=== PATIENT | male | born 1970 | race Caucasian/White ===

== ENCOUNTER 2016-11-24 23:27 | Inpatient (IN) ==
[2016-11-24] MEDS ORDERED: SODIUM CHLORIDE 0.9% 1,000 ML IV STA (23:51)
[2016-11-24] MEDS ORDERED: MORPHINE 2 MG/1 ML SYRINGE IV STA (23:52)
[2016-11-24 23:58] LABS: Basophils % 0.1 % (0.0-0.8); Hematocrit 31.7 VOL% (42.0-52.0); Hemoglobin 11.4 GM/DL (14.0-18.0); Immature Granulocytes % 1.5 %; Immature Granulocytes Absolute 0.37 #; Lymphocytes # 2.9 10*3/uL (1.4-4.0); Lymphocytes % 11.9 % (21.2-54.2); Mean Corpuscular Hemoglobin 30 PG (27-34); Mean Corpuscular Volume 81.9 FL (87-102); Mean Platelet Volume 11.1 FL (9.6-12.0); Monocytes # 1.8 10*3/uL (0.11-0.8); Monocytes % 7.4 % (1.7-12.7); NRBC # 0.08 10*3/uL; Neutrophils % 79.1 % (38.7-73.9); Platelet Count 329 T/CUMM (130-400); Red Blood Count 3.87 MC/CUMM (3.8-5.5); Red Cell Distribution Width 18.3 % (9.3-17.3)
[2016-11-25] MEDS ORDERED: MORPHINE 2 MG/1 ML SYRINGE ONE (00:03)
[2016-11-25 00:47] LABS: Albumin 2.4 G/DL (3.4-5.0); Bilirubin,Total 0.5 MG/DL (0.2-1.0); Calcium 8.7 MG/DL (8.5-10.1); Osmolality,Calculated 260.9 MOS/KG (273-304); Total Protein 6.7 G/DL (6.4-8.3)
[2016-11-25] MEDS ORDERED: VANCOMYCIN INJ 1,250 MG in SODIUM CHLORIDE 0.9% 250 ML IV STA (01:05)
[2016-11-25] MEDS ORDERED: DOXYCYCLINE HYCLATE INJ 100 MG in SODIUM CHLORIDE 0.9% 100 ML IV STA (01:05)
[2016-11-25] MEDS ORDERED: SODIUM CHLORIDE 0.9% 1,000 ML IV STA (01:06)
[2016-11-25] MEDS ORDERED: ACETAMINOPHEN 500 MG TABLET PO STA (01:13)
[2016-11-25] MEDS ORDERED: DOXYCYCLINE HYCLATE 100 MG VIAL ONE (01:44)
[2016-11-25] MEDS ORDERED: SODIUM CHLORIDE 0.9% 100 ML IV ONE (01:44)
[2016-11-25] MEDS ORDERED: ACETAMINOPHEN 500 MG TABLET ONE (01:45)
[2016-11-25 01:50] LABS: Lymphocytes 16 % (20-55); Platelet Estimate Normal; Segmented Neutrophils 81 % (50-85); Total Cells Counted 100
[2016-11-25 01:51] LABS: Acanthocytes 1+; Giant Platelets Few; Ovalocytes Few
[2016-11-25] MEDS ORDERED: HYDROmorphone 2 MG/1 ML VIAL IV STA (02:09)
[2016-11-25 02:16] LABS: Barbiturates Screen,Urine Negative (Negative); Benzodiazepines Screen,Urine Negative (Negative); Cannabinoid Screen,Urine Positive (Negative); Opiate Screen,Urine Positive (Negative); Phencyclidine Screen,Urine Negative (Negative)
[2016-11-25] MEDS ORDERED: ACETAMINOPHEN 325 MG TABLET PO PRN (02:22)
[2016-11-25] MEDS ORDERED: ONDANSETRON 4 MG/2 ML VIAL IV PRN (02:22)
[2016-11-25] MEDS ORDERED: HYDROmorphone 2 MG/1 ML VIAL ONE (02:32)
--- NOTE | 2016-11-25 02:34 | Emergency Department Note ---
Topher Madden Brittany, am scribing for, and in the presence of, Maricel Garvin MD 23:57. Bharathi Madden Leanne, MD, personally performed the services described in this documentation, ascribed by Kary Obando in my presence, and it is both accurate and complete . Arrival - Arrival Chief Complaint: Weakness Stated Complaint: HTN, fever, tick bite ED Nursing Triage Note: C/C Pt states he started feeling bad 4 days ago. Pt states he pulled a off his lower back. Pt C/O fever, hurting all over. Pt has RA - pt left hand/wrist red swollen painful. Pt has been out of his [place] for several days. No history of HTN. Mode of Arrival: Stretcher Limitations: No Limitations Source: Patient, RN Notes Reviewed - History of Present Illness HPI Narrative: Patient is a 46 y/o white male presenting to the ED by EMS with c/o polyarthralgia which began 4 days ago. Patient reports that he has a history of Rheumatoid Arthritis and with exacerbations he usually can lie down and have some relief, but with this exacerbation he has had the most severe pain he's ever experienced with an exacerbation. He has also had joint pain and swelling in the left wrist/hand, right hip, and right foot. Lying down does not relieve his pain and this pain is so severe that he requires assistance with toileting and care. He ran out of his [place] several days ago. He states that he believes he may have gotten bit by a tick about a week ago to the sacral area. Patient has no other complaint/pain. Allergies/Adverse Reactions: Allergies Allergy/AdvReac Type Severity Reaction Status Date / Time No Known Allergies Allergy Unverified 11/24/16 23:42 Review of System - Review of System 12 point system: reviewed and no additional remarkable complaints except as stated - Review of System Constitutional: Absent: chills, fever Eyes: Absent: vision change Head/Ears/Nose/Throat: Absent: nasal drainage, sore throat Respiratory: Absent: respiratory distress Cardiovascular: Absent: chest pain Gastrointestinal: Absent: abdominal pain, nausea, vomiting, diarrhea, constipation Genitourinary male: Absent: urgency, dysuria, frequency Musculoskeletal: Present: joint swelling, other (joint pains). Absent: back pain Skin: Absent: rash Neurological: Absent: headache Psychiatric: Absent: anxiety, depression Medical,Surgical,& Family Hx - Medical History Rheumatology: History of;: Rheumatoid Arthritis - Surgical History Abdominal Surgeries: Surgical HX of: Abdominal Surgery (spleenectomy) - Social History Smoking Status: Current every day smoker Frequency of Alcohol Use: None Type of Drug Use: Marijuana Exam Vital Signs: Vital Signs Temperature 100.6 F H 11/24/16 23:27 Pulse Rate 134 H 11/24/16 23:51 Respiratory Rate 24 11/24/16 23:51 Blood Pressure 158/109 11/24/16 23:27 O2 Sat by Pulse Oximetry 99 11/25/16 00:01 - General General appearance: alert, in no apparent distress - Head Head exam: Present: atraumatic, normocephalic, normal inspection - Eye Eye exam: Present: normal appearance, PERRL, EOMI - ENT ENT exam: Present: normal exam, normal oropharynx - Neck Neck exam: Present: normal inspection, full ROM, trachea midline - Chest Chest inspection: Present: normal inspection, symmetric chest wall rise - Respiratory Respiratory exam: Present: normal lung sounds bilaterally - Cardiovascular Cardiovascular exam: Present: normal rhythm, tachycardia, normal heart sounds. Absent: regular rate - Abdominal Exam Abdominal exam: Present: soft, normal bowel sounds. Absent: tenderness - Extremities Exam Extremities exam: Present: tenderness (exquisitely tender over joints in the left wrist, right hip, and right foot). Absent: normal inspection (reddened joints of the left wrist, right hip, and right foot), full ROM (limited due to pain) - Back Exam Back exam: Present: normal inspection - Neurological Exam Neurological exam: Present: alert, oriented X3, CN II-XII intact. Absent: motor sensory deficit - Psychiatric Psychiatric exam: Present: normal affect, normal mood - Skin Skin exam: Present: warm, dry Course Course Narrative: TACHY AND WITH FEVER. CONCERN FOR TICK BORN ILLNESS OR STAPH INFECTION. PT ALSO ASPLENIC. COVERED WITH VANC AND DOXY. WILL ADMIT TO HOSPITALIST FOR FURTHER WORK UP. Results - Labs CBC & BMP: 11/24/16 23:45 11/24/16 23:45 Lab Results: I have reviewed the patients labs Labs: Laboratory Tests 11/24/16 23:45 WBC 24.0 H RBC 3.87 Hgb 11.4 L Hct 31.7 L MCV 81.9 L RDW 18.3 H Plt Count 329 Neut % (Auto) 79.1 H Lymph % (Auto) 11.9 L Neut # (Auto) 19.0 H [place] # (Auto) 1.8 H Laboratory Tests 11/24/16 23:45 Sodium 129 L Potassium 4.0 Chloride 98 Carbon Dioxide 18 L Anion Gap 17.0 H BUN 19 H Creatinine 1.00 Glucose 117 H Calculated Osmolality 260.9 L C-Reactive Protein > 19.00 H Albumin 2.4 L Globulin 4.3 H Albumin/Globulin Ratio 0.5 L Laboratory Tests 11/24/16 23:45 C-Reactive Protein 44.40 H Laboratory Tests 11/24/16 23:45 Total Counted 100 Segmented Neutrophils 81 Lymphocytes 16 L Monocytes 3 Platelet Estimate Normal Giant Platelets Few Ovalocytes Few Acanthocytes (Spur) 1+ Disposition Clinical Impression: Polyarthralgia, Fever, Leukocytosis, Tick bite Case discussed with: patient Condition: Guarded Additional Instructions: ADMIT TO HOSPITALIST. PT GIVEN NS, DOXYCYCLINE AND VANC.
--- NOTE | 2016-11-25 02:42 | Hospitalist History & Physical ---
Assessment and Plan (1) Asplenia Status: Acute Current Visit: Yes (2) Severe sepsis Status: Acute Current Visit: Yes (3) Tobacco abuse Status: Acute Current Visit: Yes (4) History of rheumatoid arthritis Status: Acute Current Visit: Yes (5) Arthralgia of multiple joints Status: Acute Current Visit: Yes (6) Fever Status: Acute Current Visit: Yes (7) Leukocytosis Status: Acute Current Visit: Yes (8) Tick bite Status: Acute Current Visit: Yes (9) Hyponatremia Status: Acute Assessment and plan: Our plan for this patient will be admitting him to our service. I am going to put him on broad coverage antibiotics. I am covering for both tickborne illness and illness that are associated with encapsulated organisms since he is asplenic. I will have him on doxy Levaquin and Vanco. Also will consult infectious disease. Can repeat his lactic acid level at 7 a.m. we will workup his hyponatremia. I discussed the need for him to quit smoking. We spent approximately 3 minutes on this issue. Current Visit: Yes History of Present Illness Chief complaint: Joint pain History of present illness: Mr. Piedra is a 46 year old male with past medical history significant for rheumatoid arthritis who was in his normal state of health for the past 4 days. Patient reports last week pulling a tick off his back. He is outdoor a lot and he has frequent tick bites. This tic though had been on his back for some time because it was engorged with blood. Patient did not find any other ticks attached to them during this time. He comes in tonight after 4 days of experiencing multiple joint pains. Is also having right hip pain and right foot pain. He is said that he is on Enbrel now. Takes 2 shots a week. He reports that his rheumatoid arthritis has never felt like this. Patient is tachycardic with fever and elevated white count. I was consulted to admit him. Allergies Allergy/AdvReac Type Severity Reaction Status Date / Time No Known Allergies Allergy Unverified 11/24/16 23:42 Medical,Surgical,& Family Hx - Medical History Rheumatology: History of;: Rheumatoid Arthritis - Surgical History Abdominal Surgeries: Surgical HX of: Abdominal Surgery (spleenectomy) - Family History Family History: Reports;: Family Cancer - Social History Smoking Status: Current every day smoker Frequency of Alcohol Use: None Type of Drug Use: Marijuana 12 point system: reviewed and no additional remarkable complaints except as stated Exam - Constitutional Vitals: Period Temp Pulse Resp BP Sys/Maxwell Pulse Ox Last 24 Hr 100.6 F-100.6 F 134-134 20-24 158-158/109-109 99-99 - General General appearance: alert, in no apparent distress - Head Head exam: Present: atraumatic, normocephalic, normal inspection - Eye Eye exam: Present: normal appearance, PERRL, EOMI - ENT ENT exam: Present: normal exam, normal oropharynx - Neck Neck exam: Present: normal inspection, full ROM, trachea midline - Chest Chest inspection: Present: normal inspection, symmetric chest wall rise - Respiratory Respiratory exam: Present: normal lung sounds bilaterally - Cardiovascular Cardiovascular exam: Present: normal rhythm, tachycardia - Abdominal Exam Abdominal exam: Present: soft, normal bowel sounds. - Extremities Exam Extremities exam: Present: tenderness on his left wrist right hip and right foot the joints of his left wrist seem swollen and have limited range of motion secondary to his pain - Back Exam Back exam: Present: normal inspection - Neurological Exam Neurological exam: Present: alert, oriented X3, CN II-XII intact. Absent: motor sensory deficit - Psychiatric Psychiatric exam: Present: normal affect, normal mood - Skin Skin exam: Present: warm, dry Results - Labs CBC & BMP: 11/24/16 23:45 11/24/16 23:45
[2016-11-25 03:09] LABS: Sedimentation Rate-Westergren 100 MM/HR (0-15)
[2016-11-25] MEDS: MORPHINE 2 MG/1 ML SYRINGE IV PRN (04:38)
[2016-11-25] MEDS: SODIUM CHLORIDE 0.9% 1,000 ML IV SCH ×3 (04:41→20:46)
[2016-11-25] MEDS ORDERED: LEVOFLOXACIN INJ 500 MG in PREMIX 1 EACH IV SCH (05:00)
[2016-11-25 06:54] LABS: Basophils % 0.1 % (0.0-0.8); Hematocrit 27.5 VOL% (42.0-52.0); Hemoglobin 9.8 GM/DL (14.0-18.0); Immature Granulocytes % 1.7 %; Immature Granulocytes Absolute 0.36 #; Lymphocytes # 4.2 10*3/uL (1.4-4.0); Lymphocytes % 19.7 % (21.2-54.2); Mean Corpuscular HGB Conc 35.6 GM/DL (32-36); Mean Corpuscular Hemoglobin 30 PG (27-34); Mean Corpuscular Volume 82.8 FL (87-102); Mean Platelet Volume 10.8 FL (9.6-12.0); Monocytes # 1.8 10*3/uL (0.11-0.8); Monocytes % 8.4 % (1.7-12.7); NRBC # 0.07 10*3/uL; Neutrophils # 15.1 10*3/uL (1.4-7.4); Neutrophils % 70.1 % (38.7-73.9); Platelet Count 302 T/CUMM (130-400); Red Blood Count 3.32 MC/CUMM (3.8-5.5); Red Cell Distribution Width 18.2 % (9.3-17.3); White Blood Count 21.6 T/CUMM (4-12)
[2016-11-25 07:18] LABS: Acanthocytes Few; Band Neutrophils 2 % (0-10); Burr Cells Few; Eosinophils 1 % (0-10); Hypochromasia 1+; Lymphocytes 21 % (20-55); Microcytosis 1+; Segmented Neutrophils 73 % (50-85); Total Cells Counted 100
[2016-11-25 07:19] LABS: Platelet Estimate Normal
[2016-11-25 07:34] LABS: Bilirubin,Total 0.8 MG/DL (0.2-1.0); Calcium 7.8 MG/DL (8.5-10.1); Osmolality,Calculated 264.7 MOS/KG (273-304); Potassium 3.6 MMOL/L (3.5-5.1); Total Protein 5.8 G/DL (6.4-8.3)
[2016-11-25] MEDS: ENOXAPARIN 40 MG/0.4 ML SYRINGE SUBCUT SCH (09:36)
[2016-11-25] MEDS: PANTOPRAZOLE 40 MG TABLET PO SCH (09:36)
[2016-11-25] MEDS: VANCOMYCIN INJ 1,250 MG in SODIUM CHLORIDE 0.9% 250 ML IV SCH ×2 (09:36→17:59)
--- NOTE | 2016-11-25 09:42 | XRay Report ---
Exam: XR hip 2V RT Date: 11/25/2016 4:00 AM Comparison: None Indication: Right hip pain Technique:[AP and lateral right hip] Findings: No osseous or soft tissue pathology identified. Impression: No osseous or soft tissue pathology identified. PROCEDURE INTERPRETED AT [facility] DEPARTMENT OF RADIOLOGY Final Report Signed by: Dr. Christiane Cabello
[2016-11-25] MEDS: HYDROmorphone 2 MG/1 ML VIAL IV PRN ×4 (09:45→22:33)
[2016-11-25] MEDS ORDERED: methylPREDNISolone SOD SUC 125 MG/2 ML VIAL IV ONE (11:09)
[2016-11-25] MEDS: cefTRIAXone 2,000 MG in SODIUM CHLORIDE 0.9% 100 ML IV SCH (12:34)
--- NOTE | 2016-11-25 12:43 | Hospitalist Progress Note ---
Assessment and Plan (1) Immunocompromised state Status: Acute Assessment and plan: Patient has been on Enbrel as well as corticosteroids at home and he is asplenic to take all these into account as we treat him Current Visit: Yes (2) Arthralgia of multiple joints Status: Acute Assessment and plan: Analgesia with hydrocodone will continue but I believe this patient would benefit from a coronary large dose of steroid initially but maintained on prednisone 30 mg daily for stress phase coverage of steroids and the patient was using prednisone at home. Should take care of the acute pain. Current Visit: Yes (3) Fever Status: Acute Assessment and plan: Manage fever with antipyretics. Current Visit: Yes (4) Leukocytosis Status: Acute Assessment and plan: Continue to follow. There may be delayed response in drop in her leukocytosis because I believe lack of spleen is contributing to it. Current Visit: Yes (5) Tick bite Status: Acute Assessment and plan: Patient did not delivery take to the hospital from what I can gather. There is no of evaluating the cheek therefore. 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 Because of all epidemiologic K history obtained from the patient wanted also what about mosquito exposures which he acknowledges. His change in mental status is concerning the possible central nervous system involvement is an issue 2. Should cut down on the amount of opioids used. Unfortunately his drug screen is also quite rampant over excitatory medication this gentleman. There is obvious problem with substance use disorder. Current Visit: Yes (6) Asplenia Status: Acute Current Visit: Yes (7) History of rheumatoid arthritis Status: Acute Assessment and plan: Continue treatment and observe. Current Visit: Yes (8) Substance use disorder Status: Acute Assessment and plan: Patient toxicology screen is positive for opiates amphetamine methamphetamine and cannabinoids. He is counseled against use of these chemicals. Recidivism is expected however Current Visit: Yes Hospitalist: Subjective Interval history: Patient has been seen interviewed and examined and chart has been reviewed. This is a rather interesting case of a patient who likes to be outdoors and states that he had fatigue on his back that must have been there for a long time because it had been engorged with blood but it time he took it off a week ago. Presented to the hospital with 4 days symptoms of fevers headaches and increasing myalgias on top of his rheumatoid arthritis. He cannot run has a history of splenectomy but also takes Enbrel for his rheumatoid arthritis. Patient was leukocytotic with a very high fevers. Going to the family and patient does have a history of confusion preceding and during the acute phase illness at home. He is not aware of how much time he has been at home before coming to the hospital. He has had headaches which she has been ascribing to use of morphine yesterday but with confusion according to the there was complaint of headaches at home to. Patient lives here in [place] denies a rash. He also has had significant exposure to mosquitoes. Patient was admitted by my colleague last night. Rickettsial workup was started blood cultures were ordered he was started on vancomycin levofloxacin and doxycycline. His biggest complaint this morning is diffuse musculoskeletal pain worsening pain in his left wrist which she ascribes to his rheumatoid arthritis. Uses steroids at home and formal prednisone 10 mg p.o. every day. Exam - Constitutional Vitals: Period Temp Pulse Resp BP Sys/Maxwell Pulse Ox Last 24 Hr 98.3 F-100.6 F 104-134 20-24 136-158/74-109 95-99 General appearance: normal weight - Head Head exam: Present: normal inspection, normocephalic, atraumatic - Eye Eye exam: Present: EOMI, other (Anicteric sclera no conjunctival petechiae) Pupils: Present: CASA - ENT ENT exam: Present: normal oropharynx - Neck Neck exam: Present: other (Patient does have meningeal pain with manipulation of the neck) - Respiratory Respiratory exam: Present: clear to auscultation bilaterally - Cardiovascular Cardiovascular exam: Present: regular rate and rhythm - GI/Abdominal GI/Abdominal exam: Present: normal bowel sounds, soft - Extremities Exam Extremities exam: Present: other (Limitation of movement of the joints especially at the wrists elbows and knee also complaining of pain in the hip with limitation of movement of the) - Neurological Exam Neurological exam: Present: alert, oriented X3, CN II-XII intact - Psychiatric Psychiatric exam: Present: other (Looks very uncomfortable but appropriate cognitive output) - Skin Skin exam: Present: normal color, warm, dry, other (No rash) Results - Labs CBC & BMP: 11/25/16 06:41 11/25/16 06:41 Lab Results: I have reviewed the past 24 hour labs
[2016-11-25] MEDS: DOXYCYCLINE HYCLATE INJ 100 MG in SODIUM CHLORIDE 0.9% 100 ML IV SCH (13:49)
[2016-11-25 13:59] LABS: Albumin 1.9 G/DL (3.4-5.0); Bilirubin,Total 0.4 MG/DL (0.2-1.0); Calcium 7.9 MG/DL (8.5-10.1); Osmolality,Calculated 264.7 MOS/KG (273-304); Potassium 3.4 MMOL/L (3.5-5.1); Total Protein 5.6 G/DL (6.4-8.3)
[2016-11-25] MEDS: predniSONE 10 MG TABLET PO SCH (17:02)
[2016-11-26] MEDS: cefTRIAXone 2,000 MG in SODIUM CHLORIDE 0.9% 100 ML IV SCH ×2 (01:28→12:03)
[2016-11-26] MEDS: DOXYCYCLINE HYCLATE INJ 100 MG in SODIUM CHLORIDE 0.9% 100 ML IV SCH ×2 (02:08→15:09)
[2016-11-26] MEDS: VANCOMYCIN INJ 1,250 MG in SODIUM CHLORIDE 0.9% 250 ML IV SCH ×3 (03:02→18:00)
[2016-11-26] MEDS: HYDROmorphone 2 MG/1 ML VIAL IV PRN ×4 (03:08→22:37)
[2016-11-26 06:27] LABS: Hematocrit 27.5 VOL% (42.0-52.0); Hemoglobin 9.5 GM/DL (14.0-18.0); Immature Granulocytes % 1.3 %; Immature Granulocytes Absolute 0.12 #; Lymphocytes # 1.5 10*3/uL (1.4-4.0); Lymphocytes % 16.4 % (21.2-54.2); Mean Corpuscular HGB Conc 34.5 GM/DL (32-36); Mean Corpuscular Hemoglobin 29 PG (27-34); Mean Corpuscular Volume 83.1 FL (87-102); Mean Platelet Volume 10.9 FL (9.6-12.0); Monocytes # 0.4 10*3/uL (0.11-0.8); Monocytes % 4.4 % (1.7-12.7); NRBC # 0.02 10*3/uL; Neutrophils # 7.3 10*3/uL (1.4-7.4); Neutrophils % 77.9 % (38.7-73.9); Platelet Count 338 T/CUMM (130-400); Red Blood Count 3.31 MC/CUMM (3.8-5.5); Red Cell Distribution Width 18.3 % (9.3-17.3); White Blood Count 9.4 T/CUMM (4-12)
[2016-11-26] MEDS: SODIUM CHLORIDE 0.9% 1,000 ML IV SCH ×3 (06:51→20:25)
[2016-11-26 07:28] LABS: Burr Cells Slight; Giant Platelets Few; Hypochromasia 1+; Ovalocytes Slight
[2016-11-26 07:29] LABS: Microcytosis Slight; Platelet Estimate Adequate; Target Cells Slight
[2016-11-26] MEDS: PANTOPRAZOLE 40 MG TABLET PO SCH (08:55)
[2016-11-26] MEDS: ENOXAPARIN 40 MG/0.4 ML SYRINGE SUBCUT SCH (08:55)
[2016-11-26] MEDS: predniSONE 10 MG TABLET PO SCH (08:55)
[2016-11-26] MEDS: MORPHINE 2 MG/1 ML SYRINGE IV PRN (10:17)
--- NOTE | 2016-11-26 13:09 | Infectious Disease Consult ---
Assessment and Plan (1) MRSA (methicillin resistant Staphylococcus aureus) septicemia Status: Acute Assessment and plan: Patient is a polysubstance abuse and he denies IV drug use but not sure about this. We need to make sure he does not have endocarditis. Recommendations: 1. Echocardiogram to check for endocarditis; if TTE is negative may need to go for DEMOND 2. Check chest x-ray 3. CT abdomen and pelvis given the presence of right hip pain. Need to make sure he does not have source of the pelvic abscess. 4. Agree with vancomycin with goal trough level 15-20. Watch renal function closely and vancomycin 5. Repeat blood cultures tomorrow Thank you very much for the consult. Will follow. Discussed with Dr. Reis Current Visit: Yes (2) Asplenia Status: Acute Current Visit: Yes (3) Fever Status: Acute Assessment and plan: Due to MRSA septicemia. Monitor. Current Visit: Yes (4) History of rheumatoid arthritis Status: Acute Current Visit: Yes (5) Immunocompromised state Status: Acute Assessment and plan: Enbrel makes him relatively immunocompromised and at risk for serious infections. He does have oral candidiasis which supports the fact that his immune system is quite weak at present. Current Visit: Yes (6) Substance use disorder Status: Acute Current Visit: Yes (7) Tick bite Status: Acute Assessment and plan: Agree with empiric doxycycline for now although I am doubtful that he has a tickborne illness at this time. Current Visit: Yes (8) Oral candidiasis Status: Acute Assessment and plan: Possibly due to immunocompromised state from being on Enbrel and having rheumatoid arthritis etc. But and we did an HIV test, especially given his polysubstance abuse. Current Visit: Yes History of Present Illness Chief complaint: Fever, asplenia History of present illness: Mr. 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 He says prior to then but he got all his vaccines and was tested for TB etc. He is relatively well until about 2 days ago when he started having fever chills and sweats. He got quite malaised and weak and so came to the hospital. He was noted to be febrile and today blood cultures are coming up positive for gram -positive cocci and so I am asked to assist with management. Patient's detox was noted positive for several things including amphetamines and opioids but he denied ever injecting drugs. Apart from the fever other complaint is worsening of his joint pains associated with rheumatoid arthritis [wrists and knees] and for the first time he is having pain in the right hip. Of note patient reports pulling a tick off his body almost a week ago and he said the tick was engorged with blood. Home Medications Medication Instructions Recorded Confirmed Type Etanercept [Enbrel] 50 mg IM DIRECTED 11/25/16 11/25/16 History predniSONE TAB [PredniSONE] 10 mg PO DAILY 11/25/16 11/25/16 History Allergies Allergy/AdvReac Type Severity Reaction Status Date / Time No Known Allergies Allergy Verified 11/25/16 06:00 12 point system: reviewed and no additional remarkable complaints except as stated (Per HPI) Medical,Surgical,& Family Hx - Medical History Rheumatology: History of;: Rheumatoid Arthritis Musculoskeletal: No history of: Amputation - Surgical History HEENT Surgeries: Surgical HX of: Tonsilectomy & Adenoidectomy Abdominal Surgeries: Surgical HX of: Abdominal Surgery (spleenectomy) - Family History Family History: Reports;: Family Cancer - Social History Smoking Status: Current every day smoker Frequency of Alcohol Use: None Type of Drug Use: Marijuana Infectious Disease Exam H&P - Constitutional Vitals: Vital Signs Temp Pulse Resp BP Pulse Ox 97.8 F 92 H 18 111/68 98 11/26/16 11:02 11/26/16 11:02 11/26/16 11:02 11/26/16 11:02 11/26/16 11:02 Intake and Output 11/25/16 11/26/16 11/26/16 23:59 07:59 15:59 Intake Total 1700 / 1700 450 / 450 Output Total 900 / 900 550 / 550 Balance 800 / 800 -100 / -100 Intake: IV 1700 / 1700 450 / 450 Vibramycin Inj 100 mg In 100 / 100 100 / 100 Ns 100 ml @ 100 mls/hr IV Q12H [facility] Rx#:[id number] Ns 1,000 ml @ 75 mls/hr 1000 / 1000 IV .[id number] [facility] Rx#: [id number] Vancomycin Inj 1,000 mg 500 / 500 250 / 250 In Ns 250 ml @ 250 mls/hr IV Q8H [facility] Rx#: [id number] Rocephin 2,000 mg In Ns 100 / 100 100 / 100 100 ml @ 200 mls/hr IV Q12H [facility] Rx#:[id number] Output: Urine 900 / 900 550 / 550 Other: Voiding Method Urinal Urinal # Bowel Movements 0 0 Exam: General: Patient relatively comfortable, though he appeared fidgety at time HEENT: Mucous membranes pink and moist, anicteric acyanotic, CASA, significant whitish exudates on his hard palate become mucosa and tongue Neck: Supple, no thyroid gland enlargement Respiratory system: Breath sounds vesicular, no crepitations or wheezes Cardiovascular: Normal S1 and S2, grade 2/6 systolic murmur at the apex Abdomen: Normal bowel sounds, soft nontender throughout, no organomegaly or mass Genitourinary: No suprapubic pain or bladder distention Extremities: no edema Skin: There is a small patch of a possible rash to the right side of the upper back Reports - Labs CBC & BMP: 11/26/16 06:06 11/25/16 13:02 Labs: Laboratory Results - last 24 hr 11/25/16 11/26/16 11/26/16 13:02 06:06 06:06 WBC 9.4 D RBC 3.31 L Hgb 9.5 L Hct 27.5 L MCV 83.1 L MCH 29 MCHC 34.5 RDW 18.3 H Plt Count 338 MPV 10.9 Neut % (Auto) 77.9 H Lymph % (Auto) 16.4 L [place] % (Auto) 4.4 Eos % (Auto) 0.0 Baso % (Auto) 0.0 Neut # (Auto) 7.3 Lymph # (Auto) 1.5 [place] # (Auto) 0.4 Eos # (Auto) 0.0 Baso # (Auto) 0.0 Immature Gran % 1.3 Nucleated RBC % 0.2 Immature Gran # 0.12 Nucleated RBCs # 0.02 Platelet Estimate Adequate Giant Platelets Few Hypochromasia 1+ Microcytosis Slight Target Cells Slight Ovalocytes Slight [place] Cells Slight Sodium 131 L Potassium 3.4 L Chloride 101 Carbon Dioxide 18 L Anion Gap 15.4 H BUN 14 Creatinine 0.80 GFR Calculation 114 BUN/Creatinine Ratio 17.00 Glucose 134 H Calculated Osmolality 264.7 L Calcium 7.9 L Magnesium 2.4 Total Bilirubin 0.40 AST 15 ALT 15 L Alkaline Phosphatase 85 Total Protein 5.6 L Albumin 1.9 L Globulin 3.7 H Albumin/Globulin Ratio 0.5 L - Reports Microbiology: Microbiology 11/26/16 Unknown MRSA (PCR) - Final Blood Mrsa Positive Staph aureus Positive 11/26/16 Unknown MRSA (PCR) - Final Blood Mrsa Positive Staph aureus Positive 11/24/16 23:46 Blood Culture - Preliminary Blood Gram Positive Cocci 11/24/16 23:45 Blood Culture - Preliminary Blood Gram Positive Cocci - Diagnostic Findings Procedure: X-ray: report reviewed by me (Hip x-ray without acute pathology)
[2016-11-26] MEDS: FLUCONAZOLE 100 MG TABLET PO SCH (14:00)
--- NOTE | 2016-11-26 14:03 | XRay Report ---
XR chest 2V Indication: Fever leukocytosis bacteremia, look for pneumonia Comparison: None Technique: Frontal and lateral views of the chest. Findings: Mild cardiomegaly. Chronic change of the lungs without focal consolidation, pleural effusion, or pneumothorax. Moderate dextroconvex curvature of the thoracic spine. IMPRESSION: Mild cardiomegaly without pratima pulmonary edema or focal consolidating pneumonia. PROCEDURE INTERPRETED AT [facility] DEPARTMENT OF RADIOLOGY Final Report Signed by: Dr Misha Christensen
--- NOTE | 2016-11-26 14:37 | Hospitalist Progress Note ---
Assessment and Plan (1) Immunocompromised state Status: Acute Assessment and plan: Patient has been on Enbrel as well as corticosteroids at home and he is asplenic to take all these into account as we treat him Current Visit: Yes (2) Arthralgia of multiple joints Status: Acute Assessment and plan: Significant improvement especially after steroid dosing Current Visit: Yes (3) Fever Status: Acute Assessment and plan: Normalize fever curve Current Visit: Yes (4) Leukocytosis Status: Acute Assessment and plan: Continue to follow. There may be delayed response in drop in her leukocytosis because I believe lack of spleen is contributing to it. Current Visit: Yes (5) Tick bite Status: Acute Assessment and plan: Patient did not delivery take to the hospital from what I can gather. There is no of evaluating the cheek therefore. Suspected stenosis in this region of [facility] would be him on monocytic acute osseous or human granulocytic anaplasmosis. Because of all epidemiologic K history obtained from the patient wanted also what about mosquito exposures which he acknowledges. His change in mental status is concerning the possible central nervous system involvement is an issue 2. Should cut down on the amount of opioids used. Unfortunately his drug screen is also quite rampant over excitatory medication this gentleman. There is obvious problem with substance use disorder. Current Visit: Yes (6) Asplenia Status: Acute Current Visit: Yes (7) History of rheumatoid arthritis Status: Acute Assessment and plan: Continue treatment and observe. Current Visit: Yes (8) Substance use disorder Status: Acute Assessment and plan: Patient toxicology screen is positive for opiates amphetamine methamphetamine and cannabinoids. He is counseled against use of these chemicals. Recidivism is expected however Current Visit: Yes (9) MRSA bacteremia Status: Acute Assessment and plan: This is a new development this point. Will need to repeat blood cultures 2 patient will be put on vancomycin 1.25 g IV every 12 hours. Consult pharmacy for vancomycin pharmacokinetics. Case discussed with infectious disease specialist on the case. Current Visit: Yes Hospitalist: Subjective Interval history: Patient has been seen interviewed and examined and chart has been reviewed. This is a gentleman was admitted the night before yesterday through the emergency room claiming that he had pulled a tick off him a week before and they had started having fevers 4 days prior to coming to the hospital. He stated that this tick was engorged with the bladder and inferior was possibility of rickettsial infection and/or leakage. Was worried about possibility of West Nile exposure given the fact that he says he has been in the wounds and exposed to mosquitoes big-time. He did have a positive toxicology screen for excitatory medication suggesting substance use disorder and have discussed this with the patient as regard to the danger of low blood behavior especially since he is asplenic and uses Enbrel for rheumatoid arthritis. He did have amphetamine byproducts cannabinoid byproducts as well as opioids. He has been counseled for substance use disorder. This afternoon I was informed by the infectious disease product marketing consultant that the laboratory has reported that he does have MRSA. In the morning we know that he did have a growth of gram-positive cocci in the blood. Will need repeat blood cultures 2 to verify for possibility of an continuous bacteremia. Exam - Constitutional Vitals: Period Temp Pulse Resp BP Sys/Maxwell Pulse Ox Last 24 Hr 96.3 F-98.5 F 78-107 18-22 102-136/57-96 96-100 General appearance: normal weight - Head Head exam: Present: normocephalic, atraumatic - Eye Eye exam: Present: EOMI Pupils: Present: CASA - ENT ENT exam: Present: normal oropharynx - Respiratory Respiratory exam: Present: clear to auscultation bilaterally - Cardiovascular Cardiovascular exam: Present: regular rate and rhythm - Extremities Exam Extremities exam: Present: full ROM, other (Much better dexterity compared to the first day I evaluated him) - Neurological Exam Neurological exam: Present: alert, oriented X3, CN II-XII intact - Psychiatric Psychiatric exam: Present: normal affect, normal mood - Skin Skin exam: Present: normal color, warm, dry Results - Labs CBC & BMP: 11/26/16 06:06 11/25/16 13:02 Lab Results: I have reviewed the past 24 hour labs (Attention to microbiology report)
--- NOTE | 2016-11-26 16:17 | CT Report ---
CT abdomen pelvis wo/w con Indication: Right hip pain, MRSA bacteremia, psoas abscess Comparison: None Technique: Multiple axial tomographic images of the abdomen and pelvis were obtained after the administration of 100 cc Omnipaque 350 intravenous contrast. Findings: Scattered small opacities within the right lung base suspicious for infectious/inflammatory process. Recommend follow-up chest CT after treatment to ensure resolution and exclude metastatic disease. Mild left basilar atelectasis. No worrisome focal hepatic abnormality. The gallbladder is grossly unremarkable. The pancreas is grossly unremarkable. Prior splenectomy. The bilateral adrenal glands are grossly unremarkable. Scattered small cortical scarring within the bilateral kidneys. No evidence of hydronephrosis. Subcentimeter nonobstructing bilateral renal calculi. The urinary bladder is incompletely distended. The prostate and seminal vesicles are grossly unremarkable. There is no evidence of gastrointestinal obstruction or acute appendicitis. The appendix is not identified with certainty. There is scattered fluid throughout the small and large bowel suspicious for enteritis/diarrhea causing illness. There is no evidence of abscess formation. Moderate atherosclerotic calcifications demonstrated. Visualized osseous and surrounding soft tissue structures demonstrate no acute abnormality. Levoconvex curvature of the spine near the thoracolumbar junction. IMPRESSION: Scattered small opacities within the right lung base suspicious for infectious/inflammatory process. Recommend follow-up chest CT after treatment to ensure resolution and exclude metastatic disease. Prior splenectomy.The appendix is not identified with certainty. There is scattered fluid throughout the small and large bowel suspicious for enteritis/diarrhea causing illness. There is no evidence of abscess formation. Subcentimeter nonobstructing bilateral renal calculi and other detailed findings as above. The CT exam was performed using one or more of the following dose reduction techniques: Automated exposure control, adjustment of the mA and/or kV according to patient size, or use of iterative reconstruction technique. PROCEDURE INTERPRETED AT [facility] DEPARTMENT OF RADIOLOGY Final Report Signed by: Dr Misha Christensen
--- NOTE | 2016-11-26 16:20 | ECHO Report ---
Demetrius Piedrason Exam Date: 11/26/2016 14:26 Referring Physician: Technologist: traci Hoffman ARDMS, RVT Age: 46 Ht (in): 70 Wt (lb): 152 Gender: M Exam Location: [facility] Echo Indications: MRSA, Fever, Hx: Rheumatoid arthritis, Immunocompromised state, Substance abuse, Tick bite BP: 111 / 68 HR: 84 Rhythm: Sinus Technical Quality: IMPRESSIONS Left ventricular ejection fraction is estimated at 40-45%. Mild mitral valve regurgitation. Mild tricuspid valve regurgitation. Trace pulmonary valve regurgitation. Valve structures well visualized and show no evidence of vegetation. MEASUREMENTS (Male / Female) Normal Values 2D ECHO LV Diastolic Diameter PLAX 6.4 cm 4.2 - 5.9 / 3.9 - 5.3 cm LV Systolic Diameter PLAX 4.2 cm LV Fractional Shortening PLAX 33.8 % IVS Diastolic Thickness 0.9 cm 0.6 - 1.0 / 0.6 - 0.9 cm LVPW Diastolic Thickness 1.0 cm 0.6 - 1.0 / 0.6 - 0.9 cm RV Internal Dim ED PLAX 2.9 cm Aortic Root Diameter 3.6 cm LA Systolic Diameter LX 3.6 cm 3.0 - 4.0 / 2.7 - 3.8 cm DOPPLER TR Peak Velocity 303.0 cm/s TR Peak Gradient 36.7 mmHg FINDINGS Left Ventricle Normal left ventricular cavity size. Normal left ventricular wall thickness. Left ventricular ejection fraction is estimated at 40-45%. Right Ventricle The right ventricle is normal in size and function. Right Atrium The right atrium is normal in size. Left Atrium The left atrium is normal in size. Mitral Valve Thickened mitral valve. Mild mitral valve regurgitation. Aortic Valve Morphologically normal aortic valve without significant sclerosis or stenosis. There is no aortic regurgitation. Tricuspid Valve Morphologically normal tricuspid valve. Mild tricuspid valve regurgitation. Pulmonic Valve Morphologically normal pulmonic valve. Trace pulmonary valve regurgitation. Pericardium Normal pericardium without effusion. Aorta Normal ascending aorta dimension. Ramirez Segundo (Electronically Signed) Final Date: 26 November 2016 16:19
[2016-11-26] MEDS ORDERED: NICOTINE 14 MG/24 HR PATCH TRANSDERM PRN (19:23)
[2016-11-26 20:03] LABS: HIV Antigen/Antibody Result Nonreactive (Nonreactive)
[2016-11-27] MEDS: DOXYCYCLINE HYCLATE INJ 100 MG in SODIUM CHLORIDE 0.9% 100 ML IV SCH ×2 (01:26→16:45)
[2016-11-27] MEDS: VANCOMYCIN INJ 1,250 MG in SODIUM CHLORIDE 0.9% 250 ML IV SCH ×2 (05:54→18:09)
[2016-11-27] MEDS: HYDROmorphone 2 MG/1 ML VIAL IV PRN ×4 (05:57→20:31)
[2016-11-27] MEDS: ENOXAPARIN 40 MG/0.4 ML SYRINGE SUBCUT SCH (08:46)
[2016-11-27] MEDS: PANTOPRAZOLE 40 MG TABLET PO SCH (08:46)
[2016-11-27] MEDS: predniSONE 10 MG TABLET PO SCH (08:46)
[2016-11-27] MEDS: FLUCONAZOLE 100 MG TABLET PO SCH (08:46)
[2016-11-27] MEDS: SODIUM CHLORIDE 0.9% 1,000 ML IV SCH ×2 (08:50→20:31)
[2016-11-27 14:16] LABS: Basophils % 0.1 % (0.0-0.8); Hematocrit 27.7 VOL% (42.0-52.0); Hemoglobin 9.4 GM/DL (14.0-18.0); Immature Granulocytes % 0.9 %; Immature Granulocytes Absolute 0.13 #; Lymphocytes % 14.3 % (21.2-54.2); Mean Corpuscular HGB Conc 33.9 GM/DL (32-36); Mean Corpuscular Hemoglobin 29 PG (27-34); Mean Corpuscular Volume 84.2 FL (87-102); Monocytes # 0.3 10*3/uL (0.11-0.8); Monocytes % 2.1 % (1.7-12.7); NRBC # 0.03 10*3/uL; Neutrophils # 11.6 10*3/uL (1.4-7.4); Neutrophils % 82.6 % (38.7-73.9); Platelet Count 489 T/CUMM (130-400); Red Blood Count 3.29 MC/CUMM (3.8-5.5)
--- NOTE | 2016-11-27 14:26 | Hospitalist Progress Note ---
Assessment and Plan (1) MRSA bacteremia Status: Acute Assessment and plan: pt has MRSA bacteremia sec to IV drug use on iv vanc, pt need atleast 4 weeks of iv vancomycin b\c of immunosuppressed sate , will consult PICk line , ECHO is negative for vegetation, ID consulted will follow the recs Current Visit: Yes (2) History of rheumatoid arthritis Status: Acute Assessment and plan: start toradol prn for pain contiune his home meds Current Visit: Yes Hospitalist: Subjective Interval history: no fever today , blood c\s positive for MRSA bacteremia sec to iv drug use on iv vanc ECHO negative for vegetation Exam - Constitutional Vitals: Period Temp Pulse Resp BP Sys/Maxwell Pulse Ox Last 24 Hr 97.0 F-97.9 F 70-93 18-20 112-145/68-83 96-99 heent, pearle neck, supple. chest clear. cvs, s1 s2. 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
[2016-11-27 15:00] LABS: Band Neutrophils 1 % (0-10); Hypochromasia Slight; Lymphocytes 17 % (20-55); Platelet Estimate Increased; Segmented Neutrophils 81 % (50-85); Total Cells Counted 100
[2016-11-27] MEDS: KETOROLAC 30 MG/1 ML VIAL IV SCH ×2 (15:15→21:38)
--- NOTE | 2016-11-27 15:34 | Infectious Disease Progress ---
Assessment and Plan (1) MRSA (methicillin resistant Staphylococcus aureus) septicemia Status: Acute Assessment and plan: Patient is a polysubstance abuse and he denies IV drug use but on examination there was clear evidence of IV drug use to left leg. T DEMOND negative for endocarditis but given IV drug use history and immunocompromised state I think we need to pursue further evaluation with TE. Recommendations: 1. Consult cardiology for DEMOND 2. Repeat blood cultures 3. Continue with vancomycin with goal trough level 15-20. Watch renal function closely and vancomycin 4. Do NOT place PICC line until we have negative blood cultures. In fact, patient may not need PICC line, because if his DEMOND comes back negative he will probably only need 2 weeks of IV antibiotic therapy. Current Visit: Yes (2) Asplenia Status: Acute Current Visit: Yes (3) Fever Status: Acute Assessment and plan: Due to MRSA septicemia, improved. Monitor temp curve. Current Visit: Yes (4) History of rheumatoid arthritis Status: Acute Current Visit: Yes (5) Immunocompromised state Status: Acute Assessment and plan: Enbrel makes him relatively immunocompromised and at risk for serious infections. He did have oral candidiasis which supports the fact that his immune system is quite weak at present. HIV antibody test negative. Current Visit: Yes (6) Substance use disorder Status: Acute Current Visit: Yes (7) Tick bite Status: Acute Assessment and plan: Agree with empiric doxycycline for now although I am doubtful that he has a tickborne illness at this time. Current Visit: Yes (8) Oral candidiasis Status: Acute Assessment and plan: Possibly due to immunocompromised state from being on Enbrel and having rheumatoid arthritis etc. the candidiasis seems resolved. Continue fluconazole for about 2 more days.. Current Visit: Yes Infectious Disease - PN: Subj Interval history: Patient reported feeling better today overall he still has some pain in his joints and in his right hip. No fever. No cough shortness of breath. Infectious Disease Exam (PN) - Constitutional Vitals: Temp Pulse Resp BP Pulse Ox 97.4 F L 87 18 115/71 97 11/27/16 10:48 11/27/16 10:48 11/27/16 10:48 11/27/16 10:48 11/27/16 10:48 General appearance: normal weight Exam: General appearance: no acute distress - Eye Eye exam: Present: EOMI. no icterus Pupils: Present: CASA - ENT ENT exam: Resolved white exudates in mouth - Respiratory Respiratory exam: vesicular BS, no crepitations or wheezes - Cardiovascular Cardiovascular exam: regular rate and rhythm, no murmurs - GI/Abdominal GI/Abdominal exam: normal bowel sounds, soft, non-tender, no organomegaly or mass - Extremities Exam Extremities exam: no edema, obvious IV puncture wounds/bruising to left anterior leg - Skin Skin exam: no rash Results - Labs CBC & BMP: 11/27/16 13:51 11/25/16 13:02 Lab Results: I have reviewed the past 24 hour labs (HIV antibody negative, MRSA in 2 of 2 sets of blood cultures) - Diagnostic Findings Procedure: Chest x-ray: image reviewed by me, report reviewed by me ( Unremarkable), CT Abdomen and Pelvis: image reviewed by me, report reviewed by me (No pelvic or psoas abscess)
[2016-11-27] MEDS ORDERED: diphenhydrAMINE CAP 25 MG CAPSULE PO PRN (21:52)
[2016-11-28] MEDS: HYDROmorphone 2 MG/1 ML VIAL IV PRN ×5 (02:07→22:54)
[2016-11-28] MEDS: DOXYCYCLINE HYCLATE INJ 100 MG in SODIUM CHLORIDE 0.9% 100 ML IV SCH (03:35)
[2016-11-28] MEDS: VANCOMYCIN INJ 1,250 MG in SODIUM CHLORIDE 0.9% 250 ML IV SCH ×2 (05:37→18:26)
[2016-11-28] MEDS: KETOROLAC 30 MG/1 ML VIAL IV SCH ×3 (05:37→22:52)
[2016-11-28 07:21] LABS: Alanine Aminotransferase 22 U/L (16-61); Albumin 1.8 G/DL (3.4-5.0); Alkaline Phosphatase 62 U/L (45-117); Aspartate Amino Transferase 15 U/L (0-37); Bilirubin,Total < 0.39 MG/DL (0.2-1.0); Blood Urea Nitrogen 28 MG/DL (7-18); Calcium 8.1 MG/DL (8.5-10.1); Glucose 88 MG/DL (74-106); Osmolality,Calculated 283.4 MOS/KG (273-304); Potassium 3.7 MMOL/L (3.5-5.1); Sodium 140 MMOL/L (136-145); Total Protein 4.9 G/DL (6.4-8.3)
[2016-11-28] MEDS ORDERED: CHLORHEXIDINE 4% SOLN 118 ML BOTTLE TOP ONE (08:01)
[2016-11-28] MEDS: MUPIROCIN 2% OINT 22 GM TUBE TOP SCH ×3 (09:27→20:48)
[2016-11-28] MEDS: ENOXAPARIN 40 MG/0.4 ML SYRINGE SUBCUT SCH (09:27)
[2016-11-28] MEDS: FLUCONAZOLE 100 MG TABLET PO SCH (09:27)
[2016-11-28] MEDS: predniSONE 10 MG TABLET PO SCH (09:28)
[2016-11-28] MEDS: PANTOPRAZOLE 40 MG TABLET PO SCH (09:28)
--- NOTE | 2016-11-28 11:49 | Infectious Disease Progress ---
Assessment and Plan (1) MRSA (methicillin resistant Staphylococcus aureus) septicemia Status: Acute Assessment and plan: Patient is a polysubstance abuse including IVDU has prolonged MRSA septicemia. No abscess on CT abdomen and pelvis but given IV drug use I am concerned about possible endocarditis not picked up on TTE. Recommendations: 1. Discussed with patient that DEMOND would make the difference between treating for 4 weeks versus 6 weeks of IV antibiotics. He will think about whether or not he would accept the test 2. Continue with vancomycin. Trough borderline supratherapeutic but renal function has been normal. 3. Blood cultures were done again yesterday so we will follow-up those results 4. Do NOT place PICC line until we have negative blood cultures. Current Visit: Yes (2) Asplenia Status: Acute Current Visit: Yes (3) Fever Status: Acute Assessment and plan: Due to MRSA septicemia, resolved. Current Visit: Yes (4) History of rheumatoid arthritis Status: Acute Current Visit: Yes (5) Immunocompromised state Status: Acute Assessment and plan: Enbrel makes him relatively immunocompromised and at risk for serious infections. He did have oral candidiasis which supports the fact that his immune system is quite weak at present. HIV antibody test negative. Current Visit: Yes (6) Substance use disorder Status: Acute Current Visit: Yes (7) Tick bite Status: Acute Assessment and plan: I think he is unlikely to have a tickborne illness and I will stop the doxycycline. Current Visit: Yes (8) Oral candidiasis Status: Acute Assessment and plan: Resolved. I will stop the fluconazole. Current Visit: Yes Infectious Disease - PN: Subj Interval history: Patient doing relatively okay, in fact he says he feels good and is asking about when he is going home. His DEMOND was scheduled for this morning when he flat out refused, saying that he knows someone who had it and had complications from anesthesia. The patient has not had any fever. No nausea vomiting or diarrhea. Still with pains in his joints. Infectious Disease Exam (PN) - Constitutional Vitals: Temp Pulse Resp BP Pulse Ox 97.6 F 72 18 152/79 97 11/28/16 11:37 11/28/16 11:37 11/28/16 11:37 11/28/16 11:37 11/28/16 11:37 General appearance: normal weight Exam: General appearance: no acute distress - Eye Eye exam: Present: EOMI. no icterus Pupils: Present: CASA - ENT ENT exam: No oropharyngeal exudates - Respiratory Respiratory exam: vesicular BS, no crepitations or wheezes - Cardiovascular Cardiovascular exam: regular rate and rhythm, no murmurs - GI/Abdominal GI/Abdominal exam: normal bowel sounds, soft, non-tender, no organomegaly or mass - Extremities Exam Extremities exam: no edema, obvious IV puncture wounds/bruising to left anterior leg - Skin Skin exam: no rash Results - Labs CBC & BMP: 11/27/16 13:51 11/28/16 05:58 Lab Results: I have reviewed the past 24 hour labs (Repeat blood culture from the positive for gram-positive cocci in 1 of 2 sets so far)
--- NOTE | 2016-11-28 13:49 | Event Note ---
We have been consulted for DEMOND and had scheduled one today. The patient did not want to get that procedure done. I discussed this with him today. For now , we will manage him conservatively. I reviewed his transthoracic echocardiogram again. I had a pretty good view of his valvular structures and I did not see any evidence of endocarditis. Please call if I can be of further assistance.
[2016-11-28] MEDS: SODIUM CHLORIDE 0.9% 1,000 ML IV SCH ×2 (14:27→23:41)
--- NOTE | 2016-11-28 17:22 | Hospitalist Progress Note ---
Assessment and Plan (1) History of rheumatoid arthritis Status: Acute Current Visit: Yes (2) Substance use disorder Status: Acute Current Visit: Yes (3) MRSA bacteremia Status: Acute Current Visit: Yes Hospitalist: Subjective Interval history: No acute events overnight. Patient feels much better. His blood cultures have not cleared yet. He has also refused his EDMOND. He is not sure if he will agree to go to LT[facility]. Exam - Constitutional Vitals: Period Temp Pulse Resp BP Sys/Maxwell Pulse Ox Last 24 Hr 97 F-98.1 F 50-78 16-20 108-152/56-79 96-100 General appearance: over weight - Head Head exam: Present: normocephalic, atraumatic - Eye Eye exam: Present: EOMI Pupils: Present: CASA - ENT ENT exam: Present: normal exam - Neck Neck exam: Present: normal inspection - Respiratory Respiratory exam: Present: clear to auscultation bilaterally - Cardiovascular Cardiovascular exam: Present: regular rate and rhythm - GI/Abdominal GI/Abdominal exam: Present: normal bowel sounds, soft. Absent: tenderness, rebound - Extremities Exam Extremities exam: Present: normal inspection - Back Exam Back exam: Present: normal inspection - Neurological Exam Neurological exam: Present: alert, oriented X3 - Psychiatric Psychiatric exam: Present: normal affect, normal mood - Skin Skin exam: Present: warm, intact Results - Labs CBC & BMP: 11/27/16 13:51 11/28/16 05:58
[2016-11-29] MEDS: SODIUM CHLORIDE 0.9% 1,000 ML IV SCH (03:48)
[2016-11-29] MEDS: HYDROmorphone 2 MG/1 ML VIAL IV PRN ×2 (03:49→10:24)
[2016-11-29] MEDS: KETOROLAC 30 MG/1 ML VIAL IV SCH (06:38)
[2016-11-29] MEDS: VANCOMYCIN INJ 1,250 MG in SODIUM CHLORIDE 0.9% 250 ML IV SCH (06:43)
[2016-11-29 06:59] LABS: Basophils % 0.1 % (0.0-0.8); Eosinophils # 0.1 10*3/uL (0.0-0.87); Eosinophils % 0.9 % (0.00-10.9); Hematocrit 27.1 VOL% (42.0-52.0); Immature Granulocytes % 0.6 %; Immature Granulocytes Absolute 0.08 #; Lymphocytes # 5.9 10*3/uL (1.4-4.0); Lymphocytes % 41.5 % (21.2-54.2); Mean Corpuscular HGB Conc 33.2 GM/DL (32-36); Mean Corpuscular Hemoglobin 29 PG (27-34); Mean Corpuscular Volume 86.3 FL (87-102); Mean Platelet Volume 11.3 FL (9.6-12.0); Monocytes % 7.1 % (1.7-12.7); NRBC # 0.02 10*3/uL; Neutrophils # 7.1 10*3/uL (1.4-7.4); Neutrophils % 49.8 % (38.7-73.9); Platelet Count 538 T/CUMM (130-400); Red Blood Count 3.14 MC/CUMM (3.8-5.5); Red Cell Distribution Width 19.4 % (9.3-17.3); White Blood Count 14.3 T/CUMM (4-12)
[2016-11-29 07:10] VITALS: BP 120/69
[2016-11-29 07:26] LABS: Calcium 8.3 MG/DL (8.5-10.1); Magnesium 2.1 MG/DL (1.8-2.4); Osmolality,Calculated 281.3 MOS/KG (273-304)
[2016-11-29 07:38] LABS: Burr Cells Slight; Elliptocytes Few; Giant Platelets Few; Hypochromasia 1+; Lymphocytes 37 % (20-55); Platelet Estimate Increased; Segmented Neutrophils 55 % (50-85); Total Cells Counted 100
[2016-11-29 07:39] LABS: Microcytosis Slight
[2016-11-29] MEDS: PANTOPRAZOLE 40 MG TABLET PO SCH (09:06)
[2016-11-29] MEDS: ENOXAPARIN 40 MG/0.4 ML SYRINGE SUBCUT SCH (09:07)
[2016-11-29] MEDS: predniSONE 10 MG TABLET PO SCH (09:07)
[2016-11-29] MEDS ORDERED: NICOTINE 21 MG/24 HR PATCH TRANSDERM PRN (09:11)
[2016-11-29] MEDS: MUPIROCIN 2% OINT 22 GM TUBE TOP SCH (09:14)
--- NOTE | 2016-11-29 12:51 | Discharge Summary ---
Hospital Course - Hospital Course Hospital Course: Mr. Piedra is a 46 year old male with past medical history significant for rheumatoid arthritis who was in his normal state of health for the past 4 days. Patient reports last week pulling a tick off his back. He is outdoors a lot and he has frequent tick bites. He comes in tonight after 4 days of experiencing multiple joint pains. Is also having right hip pain and right foot pain. He is said that he is on Enbrel now. He adamantly denies drug use but his UDS was positive for opiates, amphetamines, methamphetamines and cannabinoids. In the emergency department he was found to be tachycardic and febrile with leukocytosis. Blood cultures returned with MRSA. He was started on vancomycin. Infectious disease was consulted. Echocardiogram with no signs of endocarditits. RAYMOND was ordered to verify this finding, but patient refused. Patient informed that he would need several weeks of IV antibiotics and that LTAC would be an ideal option. He is not a candidate for outpatient IV antibiotics given his positive urine drug screen. [facility]. I presented to tell the patient about his acceptance and he refused placement. Long discussion with patient about the severity of his illness especially given the fact that his blood cultures have not yet cleared. I discussed possible bad outcomes with him including sepsis, endocarditis and even . His mother and girlfriend was present during this discussion. Patient verbalized understanding, stating that "he had a friend with a similar diagnosis who did not have several weeks of antibiotics and is perfectly fine now." He states that he "just wants to go home." He has now left the hospital against medical advice. - Time spent with patient Time with patient DS: Less than 30 minutes Diagnosis - Discharge Diagnosis (1) History of rheumatoid arthritis Status: Acute (2) Substance use disorder Status: Acute (3) MRSA bacteremia Status: Acute Discharge Plan - Discharge Data Disposition: Left Against Medical Advice - Discharge Medications No Action Etanercept [Enbrel] 50 mg IM DIRECTED predniSONE TAB [PredniSONE] 10 mg PO DAILY - Follow Up or Referral - Forms/Instructions Exam - Constitutional Vitals: Period Temp Pulse Resp BP Sys/Maxwell Pulse Ox Last 24 Hr 97.2 F-98.0 F 73-78 18-24 112-135/61-81 97-98 General appearance: normal weight - Head Head exam: Present: normocephalic, atraumatic - Eye Eye exam: Present: EOMI Pupils: Present: CASA - ENT ENT exam: Present: normal exam - Neck Neck exam: Present: normal inspection - Respiratory Respiratory exam: Present: clear to auscultation bilaterally. Absent: rhonchi, wheezes - Cardiovascular Cardiovascular exam: Present: regular rate and rhythm - GI/Abdominal GI/Abdominal exam: Present: normal bowel sounds, soft. Absent: tenderness, rebound - Extremities Exam Extremities exam: Present: normal inspection - Back Exam Back exam: Present: normal inspection - Neurological Exam Neurological exam: Present: alert, oriented X3 - Psychiatric Psychiatric exam: Present: normal affect, normal mood - Skin Skin exam: Present: warm, intact Discharge Results Procedures and tests throughout hospitalization: Pending Orders 11/25/16 00:00 Rickettsial Disease Panel Stat 11/25/16 09:39 Ehrlichia chaff Ab, IgG,IgM Routine 11/26/16 17:35 Blood Culture Routine 11/27/16 16:13 Blood Culture Stat Labs on day of discharge: Labs from last 24 hours 11/29/16 11/29/16 11/28/16 06:07 06:07 17:30 WBC 14.3 H RBC 3.14 L Hgb 9.0 L Hct 27.1 L MCV 86.3 L MCH 29 MCHC 33.2 RDW 19.4 H Plt Count 538 H MPV 11.3 Neut % (Auto) 49.8 Lymph % (Auto) 41.5 Butler % (Auto) 7.1 Eos % (Auto) 0.9 Baso % (Auto) 0.1 Neut # (Auto) 7.1 Lymph # (Auto) 5.9 H Butler # (Auto) 1.0 H Eos # (Auto) 0.1 Baso # (Auto) 0.0 Total Counted 100 Immature Gran % 0.6 Nucleated RBC % 0.1 Immature Gran # 0.08 Segmented Neutrophils 55 Lymphocytes 37 Monocytes 8 Nucleated RBCs # 0.02 Platelet Estimate Increased Giant Platelets Few Hypochromasia 1+ Microcytosis Slight Chuyita Cells Slight Elliptocytes Few Sodium 141 Potassium 4.0 Chloride 111 H Carbon Dioxide 24 Anion Gap 10.0 BUN 19 H Creatinine 0.70 GFR Calculation 121 BUN/Creatinine Ratio 27.00 H Glucose 89 Calculated Osmolality 281.3 Calcium 8.3 L Magnesium 2.1 Vancomycin Trough 14.6 West Nile Virus IgG Ab West Nile Virus IgM Ab West Nile Interp 11/25/16 09:39 WBC RBC Hgb Hct MCV MCH MCHC RDW Plt Count MPV Neut % (Auto) Lymph % (Auto) Butler % (Auto) Eos % (Auto) Baso % (Auto) Neut # (Auto) Lymph # (Auto) Butler # (Auto) Eos # (Auto) Baso # (Auto) Total Counted Immature Gran % Nucleated RBC % Immature Gran # Segmented Neutrophils Lymphocytes Monocytes Nucleated RBCs # Platelet Estimate Giant Platelets Hypochromasia Microcytosis Chuyita Cells Elliptocytes Sodium Potassium Chloride Carbon Dioxide Anion Gap BUN Creatinine GFR Calculation BUN/Creatinine Ratio Glucose Calculated Osmolality Calcium Magnesium Vancomycin Trough West Nile Virus IgG Ab Negative West Nile Virus IgM Ab Negative West Nile Interp See comments Preliminary micro results at discharge 11/27/16 16:13 Blood Culture - Preliminary Blood Gram Positive Cocci 11/27/16 16:13 Blood Culture - Preliminary Blood Gram Positive Cocci 11/26/16 17:35 Blood Culture - Preliminary Blood Gram Positive Cocci 11/26/16 17:35 Blood Culture - Preliminary Blood No growth at 1 day DS: Provider Date of admission: 11/25/16 02:22 Primary care physician: . No PCP Attending physician on admission: Isaias Golden MD Consults: 11/25/16 02:34 Consult to Physician [CONS] Routine Comment: fever in a asplenic patient Consulting Provider: Holly Ledesma Person Notified: ROMERO Date Notified: 11/26/16 Time Notified: 09:53 Consult Notification Comment: 11/25/16 02:35 Consult to Pharmacy [CONS] Routine Reason for Pharmacy Consult: Dose/Manage Vancomycin 11/27/16 13:36 Consult to Case Mgmt/Social Srvs [CONS] Routine Reason for Case Mgmt/Social Srvs: LTAC Consult Comment: fac to give IV ABT for 1 month 11/27/16 13:37 Consult to Occupational Therapy [CONS] Routine Reason for Occupational Therapy: Evaluate and Treat Consult to Physical Therapy [CONS] Routine Reason for Physical Therapy: Evaluate and Treat 11/27/16 15:33 Consult to Physician [CONS] Routine Comment: Consulting Provider: Edward Meehan Person Notified: Geronimo Date Notified: 11/27/16 Time Notified: 15:39 11/27/16 15:37 Consult to Physician [CONS] Routine Comment: raymond Consulting Provider: Consult to Specialist Group: Cardiology Person Notified: MD AWARE Date Notified: 11/28/16 Time Notified: 08:46 Discharging clinician: Nancy Levi MD
[2016-11-29 16:49] LABS: E.chaffeensis Ab IgM <1:20 (<1:20)
[2016-11-30 01:33] LABS: Q Fever IgM Phase I Screen NEGATIVE (NEGATIVE); Q Fever IgM Phase II Screen NEGATIVE (NEGATIVE)
== END 2016-11-29 11:30 | disposition left against medical advice (07) | DRG 872 ==
LOC: EDUNIT# → EDBD → EDSEX → N.ED 23:27 → SUATTDRO 11-25 02:22 → N.EDINP 11-25 03:00 → N.5E 11-25 03:45
PROVIDERS: ADMIT Internal Medicine; ATTEND Internal Medicine

== ENCOUNTER 2016-12-03 11:25 | Inpatient (IN) ==
--- NOTE | 2016-12-03 12:19 | Emergency Department Note ---
Arrival - Arrival Chief Complaint: Extremity Problem Stated Complaint: body pain ED Nursing Triage Note: Pt states he was admitted to the hospital for a tick bite, then signed himself out 4 days ago and now has worse pain in right hip. Mode of Arrival: Wheelchair Limitations: No Limitations Source: Patient, Old Records Reviewed, RN Notes Reviewed Time Seen by Provider: 12/03/16 12:11 - History of Present Illness HPI Narrative: Patient is a 46-year-old white male with a known history of uremia with methicillin-resistant staph. Patient signed out AMA 4 days ago. The patient has a history of polysubstance abuse. Arrangements have been made for the patient to go to LTAC at [facility]. Patient continues to have intermittent fevers. At the time of discharge he had refused DEMOND. Patient complains of generalized body aches. Patient states that he is now willing to go to LTAC. Onset (ago): week(s) (1) Consistency: intermittent Severity: moderate Allergies/Adverse Reactions: Allergies Allergy/AdvReac Type Severity Reaction Status Date / Time No Known Allergies Allergy Verified 11/25/16 06:00 Home Medications: Home Medications Medication Instructions Recorded Confirmed Type Etanercept [Enbrel] 50 mg IM DIRECTED 11/25/16 11/25/16 History predniSONE TAB [PredniSONE] 10 mg PO DAILY 11/25/16 11/25/16 History Review of System - Review of System 12 point system: reviewed and no additional remarkable complaints except as stated - Review of System Constitutional: Present: chills, fever, night sweats Medical,Surgical,& Family Hx - Medical History Rheumatology: History of;: Rheumatoid Arthritis Musculoskeletal: No history of: Amputation - Surgical History HEENT Surgeries: Surgical HX of: Tonsilectomy & Adenoidectomy Abdominal Surgeries: Surgical HX of: Abdominal Surgery (Spleenectomy) - Family History Family History: Reports;: Family Cancer - Social History Smoking Status: Current every day smoker Have you smoked in the last 12 months: Yes Type of Drug Use: Marijuana, Methamphetamine Functional capacity: independent ambulation Exam Vital Signs: Vital Signs Temperature 100.1 F H 12/03/16 11:35 Pulse Rate 107 H 12/03/16 11:35 Respiratory Rate 20 12/03/16 11:35 Blood Pressure 145/100 12/03/16 11:35 O2 Sat by Pulse Oximetry 99 12/03/16 11:35 GENERAL: This is a well-nourished well-developed chronically ill-appearing white male in no apparent distress. VITAL SIGNS: Reviewed HEENT: Head is atraumatic and normocephalic. Pupils are equal round react to light. Extraocular movements are intact. Oropharynx is benign with moist mucous membranes. NECK: Neck is soft and supple without tenderness. There are no masses. There is no lymphadenopathy. LUNGS: Lungs are clear to auscultation. Chest rises symmetrically. There is no chest wall tenderness. CV: Heart is regular rate and rhythm without murmurs rubs or gallops. ABDOMEN: Abdomen is soft, nontender to palpation. There are no abdominal abnormal masses palpated. There is no organomegaly. Bowel sounds are present and active. SKIN: Skin is warm and dry. No rash. EXTREMITIES: Patient has full range of motion without tenderness. There is no pedal edema. NEUROLOGIC: Awake alert and oriented 4. Cranial nerves II through XII are grossly intact. Motor is 5 over 5 in all extremities bilaterally. Course - Consultations Consultation #1: Discussed with hospitalist. Patient will be seen by them in the emergency department. Time: 12:21 Results - Labs Lab Results: I have reviewed the patients labs Disposition Clinical Impression: Bacteremia due to Staphylococcus aureus, Polysubstance abuse, Rheumatoid arthritis Case discussed with: patient, patient's family
[2016-12-03 12:28] LABS: Basophils % 0.2 % (0.0-0.8); Eosinophils # 0.4 10*3/uL (0.0-0.87); Hematocrit 27.9 VOL% (42.0-52.0); Hemoglobin 9.5 GM/DL (14.0-18.0); Immature Granulocytes % 0.6 %; Immature Granulocytes Absolute 0.08 #; Lymphocytes # 3.4 10*3/uL (1.4-4.0); Lymphocytes % 25.6 % (21.2-54.2); Mean Corpuscular HGB Conc 34.1 GM/DL (32-36); Mean Corpuscular Hemoglobin 29 PG (27-34); Mean Corpuscular Volume 86.1 FL (87-102); Mean Platelet Volume 10.2 FL (9.6-12.0); Monocytes # 0.9 10*3/uL (0.11-0.8); Monocytes % 6.5 % (1.7-12.7); NRBC # 0.02 10*3/uL; Neutrophils # 8.6 10*3/uL (1.4-7.4); Neutrophils % 64.1 % (38.7-73.9); Platelet Count 656 T/CUMM (130-400); Red Blood Count 3.24 MC/CUMM (3.8-5.5); Red Cell Distribution Width 19.8 % (9.3-17.3); White Blood Count 13.4 T/CUMM (4-12)
[2016-12-03 12:47] LABS: Barbiturates Screen,Urine Negative (Negative); Benzodiazepines Screen,Urine Positive (Negative); Cannabinoid Screen,Urine Negative (Negative); Opiate Screen,Urine Negative (Negative); Phencyclidine Screen,Urine Negative (Negative)
[2016-12-03] MEDS ORDERED: ONDANSETRON 4 MG/2 ML VIAL IV PRN (12:50)
[2016-12-03] MEDS ORDERED: ACETAMINOPHEN 325 MG TABLET PO PRN (12:50)
[2016-12-03] MEDS ORDERED: DOCUSATE SODIUM 100 MG CAPSULE PO PRN (12:50)
[2016-12-03] MEDS ORDERED: NICOTINE 21 MG/24 HR PATCH TRANSDERM PRN (12:50)
[2016-12-03] MEDS ORDERED: ZALEPLON 5 MG CAPSULE PO PRN (12:50)
[2016-12-03] MEDS ORDERED: KETOROLAC 30 MG/1 ML VIAL IV STA (12:58)
[2016-12-03 13:02] LABS: Alanine Aminotransferase 19 U/L (16-61); Albumin 2.4 G/DL (3.4-5.0); Alkaline Phosphatase 93 U/L (45-117); Aspartate Amino Transferase 10 U/L (0-37); Bilirubin,Total < 0.39 MG/DL (0.2-1.0); Blood Urea Nitrogen 14 MG/DL (7-18); Calcium 9.2 MG/DL (8.5-10.1); Glucose 89 MG/DL (74-106); Osmolality,Calculated 272.8 MOS/KG (273-304); Potassium 4.2 MMOL/L (3.5-5.1); Sodium 137 MMOL/L (136-145); Total Protein 6.6 G/DL (6.4-8.3)
[2016-12-03] MEDS ORDERED: KETOROLAC 30 MG/1 ML VIAL ONE (13:02)
--- NOTE | 2016-12-03 14:01 | Hospitalist History & Physical ---
<Marleni Allison - Last Filed: 12/03/16 13:44> Assessment and Plan (1) Sepsis Status: Acute Assessment and plan: At the time of ED presentation, the patient was assessed. Patient was noted to be mildly febrile with a temperature noted at 100.1 and mildly tachycardic with a heart rate of 107. The patient was also noted to have positive blood cultures during the last clinical encounter. He was advised of the need for intravenous antibiotic coverage in an acute care setting; however the patient refused. The patient meets the sepsis criteria. We will initiate the sepsis bundle. Current Visit: Yes (2) Bacteremia due to Staphylococcus aureus Status: Acute Assessment and plan: The patient had noted bacteremia on the previous hospital admission. He was told that he needed intravenous antibiotics in a acute care setting. The patient refused admission at [facility] for antibiotic coverage. The patient subsequently went AGAINST MEDICAL ADVICE without being treated. We will consult infectious disease to evaluate and assist during the clinical encounter. Current Visit: Yes (3) Polysubstance abuse Status: Acute Assessment and plan: The patient has had issues with polysubstance abuse in the past. During the previous admission, the patient was noted to be positive for opiates, amphetamines methamphetamines, and cannabinoids; however during this clinical encounter the patient was only positive for benzodiazepines. This is largely the reason why it was suggested that the patient go into an inpatient setting for intravenous antibiotic therapy. I spoke with the patient in great detail regarding the need for intravenous antibiotic coverage in order to treat the known MRSA bacteremia. The patient acknowledges that he indeed made a "big mistake" when he went AGAINST MEDICAL ADVICE. Current Visit: Yes History of Present Illness Chief complaint: "Body pain" History of present illness: This is a 46-year-old chronically ill male that presented to the ED at [facility] this afternoon for the evaluation of body pain. The patient has a medical history significant for rheumatoid arthritis, nicotine addiction, and polysubstance abuse. Patient has surgical history significant for splenectomy. The patient reported the onset of symptoms 4 days prior to presentation. The patient had recently been hospitalized here at [facility] from November 24, 2016 to November 29, 2016. During the clinical encounter, blood cultures were obtained which were positive for methicillin resistant Staphylococcus aureus. During that encounter, the patient was told that he needed to have intravenous antibiotics; long-term acute care placement was obtained, and the patient decided to leave AGAINST MEDICAL ADVICE. In addition, the patient was told that he needed a transesophageal echocardiogram and the patient refused. At the time of ED presentation, the patient was assessed. Patient was noted to be mildly febrile with a temperature noted at 100.1 and mildly tachycardic with a heart rate of 107. Labs were obtained; complete blood count reported white blood cell count at 13.4, hemoglobin 9.5, hematocrit 27.9, and platelet count is 656. Basic metabolic profile reported sodium at 137, potassium 4.2, chloride 102, BUN 14, creatinine 0.80, glucose 89. Urine drug screen was positive for benzodiazepines. After brief discussion with both Dr. Kerr and Dr. Levi, the patient will be admitted to the hospitalist services. An infectious disease consultation has been requested to assist during the clinical encounter. Home medications have been reviewed and reconciled. CODE STATUS discussed; patient is a FULL CODE. Home Medications Medication Instructions Recorded Confirmed Type Etanercept [Enbrel] 50 mg IM MOTH 11/25/16 12/03/16 History predniSONE TAB [PredniSONE] 10 mg PO DAILY 11/25/16 12/03/16 History Hydrocodone/Acetaminophen [[place] 1 each PO TID 12/03/16 12/03/16 History 10-325 Tablet] Allergies Allergy/AdvReac Type Severity Reaction Status Date / Time No Known Allergies Allergy Verified 11/25/16 06:00 Medical,Surgical,& Family Hx - Medical History Rheumatology: History of;: Rheumatoid Arthritis Musculoskeletal: No history of: Amputation - Surgical History HEENT Surgeries: Surgical HX of: Tonsilectomy & Adenoidectomy Abdominal Surgeries: Surgical HX of: Abdominal Surgery (Spleenectomy) - Family History Family History: Reports;: Family Cancer - Social History Smoking Status: Current every day smoker Type of Drug Use: Marijuana, Methamphetamine 12 point system: reviewed and no additional remarkable complaints except as stated Exam - Constitutional Vitals: Period Temp Pulse Resp BP Sys/Maxwell Pulse Ox Last 24 Hr 100.1 F-100.1 F 107-107 20-20 145-145/100-100 99 General appearance: normal weight, no acute distress - Head Head exam: Present: normal inspection, normocephalic, atraumatic - Eye Eye exam: Present: EOMI. Absent: conjunctival injection Pupils: Present: CASA, normal accommodation - ENT ENT exam: Present: normal exam, normal external ear exam, normal oropharynx - Neck Neck exam: Present: normal inspection. Absent: lymphadenopathy, meningismus, tenderness, thyromegaly - Respiratory Respiratory exam: Present: clear to auscultation bilaterally. Absent: rales, rhonchi, stridor, wheezes - Cardiovascular Cardiovascular exam: Present: tachycardia. Absent: carotid bruit, diastolic murmur, gallop, JVD, rubs, systolic murmur - GI/Abdominal GI/Abdominal exam: Present: normal bowel sounds, soft - Extremities Exam Extremities exam: Present: normal inspection, normal capillary refill, full ROM. Absent: edema - Back Exam Back exam: Present: normal inspection - Neurological Exam Neurological exam: Present: alert, oriented X3 - Psychiatric Psychiatric exam: Present: anxious - Skin Skin exam: Present: normal color, warm, dry Results - Labs CBC & BMP: 12/03/16 12:16 12/03/16 12:16 Lab Results: I have reviewed the past 24 hour labs Sepsis - Sepsis Classification of Sepsis: Sepsis Possible / Suspected infection from: Blood cultures - Physical Exam Physical Exam: At the time of ED presentation, the patient was assessed. Patient was noted to be mildly febrile with a temperature noted at 100.1 and mildly tachycardic with a heart rate of 107. Labs were obtained; complete blood count reported white blood cell count at 13.4, hemoglobin 9.5, hematocrit 27.9, and platelet count is 656. Basic metabolic profile reported sodium at 137, potassium 4.2, chloride 102, BUN 14, creatinine 0.80, glucose 89. Urine drug screen was positive for benzodiazepines. - Physical Exam Respiratory exam: clear to auscultation bilaterally Capillary Refill: Less Than 3 Seconds Peripheral pulses: Radial (L): 2+, Radial (R): 2+, Dorsalis Pedis (L) PM: 2+, Dorsalis Pedis (R) PM: 2+, Posterior Tibialis (L): 2+, Posterior Tibialis (R): 2 + Cardiovascular exam: tachycardia Skin exam: normal color <Nancy Levi - Last Filed: 12/03/16 17:25> History of Present Illness History of present illness: Patient seen and examined independently of DENTAL RECEPTIONIST Keegan, agree with history, assessment and plan as documented. Patient known to me due to recent admission with MRSA bacteremia, left AMA before blood cultures even cleared. Blood cultures, start vancomycin, consult ID. Work on LTAC placement. Exam - Constitutional Vitals: Period Temp Pulse Resp BP Sys/Maxwell Pulse Ox Last 24 Hr 97.2 F-100.1 F 105-109 20-20 145-165/82-100 96-99 Results - Labs CBC & BMP: 12/03/16 12:16 12/03/16 12:16
[2016-12-03] MEDS ORDERED: SODIUM CHLORIDE 0.9% 2,150 ML IV ONE (14:06)
[2016-12-03 14:34] LABS: HIV Antigen/Antibody Result Nonreactive (Nonreactive); Hepatitis A Ab IgM Quant 0.06 Index; Hepatitis A Ab IgM Result Negative (Negative); Hepatitis B Core IgM Quant 0.23 Index; Hepatitis B Core IgM Result Negative (Negative); Hepatitis B Surface Ag Quant < 0.10 Index; Hepatitis B Surface Ag Result Negative (Negative); Hepatitis C Virus Ab Result Negative (Negative)
[2016-12-03] MEDS: SODIUM CHLORIDE 0.9% 1,000 ML IV SCH (15:38)
[2016-12-03] MEDS: ENOXAPARIN 40 MG/0.4 ML SYRINGE SUBCUT SCH (15:39)
--- NOTE | 2016-12-03 16:41 | ECHO Report ---
Con Piedra Exam Date: 12/03/2016 14:18 Referring Physician: Technologist: Leyda Segovia RDCS Age: 46 Ht (in): 71 Wt (lb): 158 Gender: M Exam Location: [facility] [place] Echo Indications: Sepsis, Bacteremia, Polysubstance abuse BP: 150 / 85 HR: 94 Rhythm: Sinus Technical Quality: average IMPRESSIONS Left ventricular ejection fraction is estimated at 50%. There is no clear regional wall motion abnormality. Diastolic parameters are most consistent with grade 1 diastolic dysfunction or impaired relaxation. Mild mitral valve regurgitation. Tricuspid regurgitation velocities suggest a RVSP of 45 mmHg plus the right atrial pressure. MEASUREMENTS (Male / Female) Normal Values 2D ECHO LV Diastolic Diameter PLAX 5.8 cm 4.2 - 5.9 / 3.9 - 5.3 cm LV Systolic Diameter PLAX 4.6 cm LV Fractional Shortening PLAX 20.7 % IVS Diastolic Thickness 1.3 cm 0.6 - 1.0 / 0.6 - 0.9 cm LVPW Diastolic Thickness 1.2 cm 0.6 - 1.0 / 0.6 - 0.9 cm RV Internal Dim ED PLAX 2.8 cm Aortic Root Diameter 3.7 cm LA Systolic Diameter LX 3.7 cm 3.0 - 4.0 / 2.7 - 3.8 cm DOPPLER TR Peak Velocity 337.0 cm/s TR Peak Gradient 45.4 mmHg FINDINGS Left Ventricle Normal left ventricular cavity size. Mild left ventricular hypertrophy. Left ventricular ejection fraction is estimated at 50%. Diastolic parameters are most consistent with grade 1 diastolic dysfunction or impaired relaxation. There is no clear regional wall motion abnormality Right Ventricle The right ventricle is normal in size and function. Right Atrium The right atrium is mildly enlarged. Left Atrium The left atrium is mildly enlarged. Mitral Valve Mildly thickened mitral valve. Mild mitral valve regurgitation. Aortic Valve Morphologically normal aortic valve without significant sclerosis or stenosis. There is no aortic regurgitation. Tricuspid Valve Morphologically normal tricuspid valve. Mild tricuspid valve regurgitation. Tricuspid regurgitation velocities suggest a RVSP of 45 mmHg plus the right atrial pressure. Pulmonic Valve Morphologically normal pulmonic valve without significant stenosis. There is no pulmonic regurgitation. Pericardium Normal pericardium without effusion. Aorta Normal ascending aorta dimension. Ann Breaux (Electronically Signed) Final Date: 03 December 2016 16:40
[2016-12-03] MEDS: VANCOMYCIN INJ 1,000 MG in SODIUM CHLORIDE 0.9% 250 ML IV SCH (17:20)
[2016-12-03] MEDS: HYDROmorphone 2 MG/1 ML VIAL IV PRN (17:20)
[2016-12-04] MEDS: VANCOMYCIN INJ 1,000 MG in SODIUM CHLORIDE 0.9% 250 ML IV SCH ×3 (00:23→16:16)
[2016-12-04] MEDS: HYDROmorphone 2 MG/1 ML VIAL IV PRN ×4 (00:24→18:13)
[2016-12-04] MEDS: SODIUM CHLORIDE 0.9% 1,000 ML IV SCH ×3 (01:48→16:16)
[2016-12-04 06:10] LABS: Basophils % 0.4 % (0.0-0.8); Eosinophils # 0.4 10*3/uL (0.0-0.87); Eosinophils % 3.8 % (0.00-10.9); Hematocrit 26.9 VOL% (42.0-52.0); Hemoglobin 8.8 GM/DL (14.0-18.0); Immature Granulocytes % 0.5 %; Immature Granulocytes Absolute 0.05 #; Lymphocytes # 4.3 10*3/uL (1.4-4.0); Lymphocytes % 42.9 % (21.2-54.2); Mean Corpuscular HGB Conc 32.7 GM/DL (32-36); Mean Corpuscular Hemoglobin 28 PG (27-34); Mean Corpuscular Volume 86.8 FL (87-102); Mean Platelet Volume 10.6 FL (9.6-12.0); Monocytes # 0.9 10*3/uL (0.11-0.8); Monocytes % 9.2 % (1.7-12.7); NRBC # 0.02 10*3/uL; Neutrophils # 4.4 10*3/uL (1.4-7.4); Neutrophils % 43.2 % (38.7-73.9); Platelet Count 671 T/CUMM (130-400); Red Cell Distribution Width 19.8 % (9.3-17.3); White Blood Count 10.1 T/CUMM (4-12)
[2016-12-04 06:50] LABS: Albumin 2.4 G/DL (3.4-5.0); Bilirubin,Total 0.5 MG/DL (0.2-1.0); Calcium 8.8 MG/DL (8.5-10.1); Osmolality,Calculated 273.7 MOS/KG (273-304); Potassium 4.4 MMOL/L (3.5-5.1); Total Protein 6.3 G/DL (6.4-8.3)
[2016-12-04] MEDS: NICOTINE 21 MG/24 HR PATCH TRANSDERM SCH (10:04)
[2016-12-04] MEDS: predniSONE 10 MG TABLET PO SCH (10:04)
[2016-12-04] MEDS: PANTOPRAZOLE 40 MG TABLET PO SCH (10:05)
--- NOTE | 2016-12-04 15:25 | Hospitalist Progress Note ---
Assessment and Plan (1) Substance use disorder Status: Acute Current Visit: No (2) MRSA bacteremia Status: Acute Assessment and plan: Vancomycin Blood cultures pending ID assisting Current Visit: No (3) Rheumatoid arthritis Status: Acute Current Visit: Yes Hospitalist: Subjective Interval history: No acute events overnight. Patient continues to complain of hip pain, would like to be able to receive dilaudid more often. Exam - Constitutional Vitals: Period Temp Pulse Resp BP Sys/Maxwell Pulse Ox Last 24 Hr 97.2 F-99.5 F 92-105 16-22 136-165/72-82 96-97 General appearance: over weight - Head Head exam: Present: normocephalic, atraumatic - Eye Eye exam: Present: EOMI Pupils: Present: CASA - ENT ENT exam: Present: normal exam - Neck Neck exam: Present: normal inspection - Respiratory Respiratory exam: Present: clear to auscultation bilaterally. Absent: rhonchi, wheezes - Cardiovascular Cardiovascular exam: Present: regular rate and rhythm - GI/Abdominal GI/Abdominal exam: Present: normal bowel sounds, soft. Absent: tenderness, rebound - Extremities Exam Extremities exam: Present: normal inspection - Back Exam Back exam: Present: normal inspection - Neurological Exam Neurological exam: Present: alert, oriented X3 - Psychiatric Psychiatric exam: Present: normal affect, normal mood - Skin Skin exam: Present: warm, intact Results - Labs CBC & BMP: 12/04/16 05:40 12/04/16 05:40
[2016-12-04] MEDS: ENOXAPARIN 40 MG/0.4 ML SYRINGE SUBCUT SCH (16:15)
[2016-12-04] MEDS: clonazePAM 0.5 MG TABLET PO PRN (16:15)
--- NOTE | 2016-12-04 16:46 | Infectious Disease Consult ---
Assessment and Plan (1) Polysubstance abuse Status: Acute Current Visit: Yes (2) Rheumatoid arthritis Status: Acute Current Visit: Yes (3) Asplenia Status: Acute Current Visit: No (4) MRSA (methicillin resistant Staphylococcus aureus) septicemia Status: Acute Assessment and plan: Prolonged MRSA septicemia patient has immunocompromise state which increases risk for such serious infections. Also IV drug use which increases his risk. No evidence of endocarditis on TTE. Recommendations: 1. Continue vancomycin with close monitoring of the trough levels and also renal function 2. Follow-up results of the cultures which I progress him yesterday if those cultures are negative then the plan will be to treat the patient for 4 weeks from the negative cultures so tentatively therapy will be until December [address] PICC line until we document that his blood cultures are negative Thank you very much for the consult. Will follow. Current Visit: No History of Present Illness Chief complaint: MRSA bacteremia History of present illness: Mr. Piedra is a 46 year old male with multiple comorbid including rheumatoid arthritis on Enbrel, history of splenectomy, and IV drug abuse. He was in hospital over week ago with sepsis and was found to have MRSA bacteremia which is prolonged. The patient was recommended to have at least 4 weeks of antibiotics and an LTAC but he refused this and ended up leaving AGAINST MEDICAL ADVICE. Patient said he was doing relatively okay at home but then started realizing that he made a stupid mistake leaving the hospital AGAINST MEDICAL ADVICE. He had a bit of malaise at home anyway he finally decided to come back to the hospital and was readmitted yesterday. Home Medications Medication Instructions Recorded Confirmed Type Etanercept [Enbrel] 50 mg IM MOTH 11/25/16 12/03/16 History predniSONE TAB [PredniSONE] 10 mg PO DAILY 11/25/16 12/03/16 History Hydrocodone/Acetaminophen [[place] 1 each PO TID 12/03/16 12/03/16 History 10-325 Tablet] Allergies Allergy/AdvReac Type Severity Reaction Status Date / Time No Known Allergies Allergy Verified 11/25/16 06:00 12 point system: reviewed and no additional remarkable complaints except as stated (Generalized body aches, rest of compressive review of systems negative for falls mentioned in the HPI) Medical,Surgical,& Family Hx - Medical History Psychological: No history of: Anxiety Disorders, ADHD, Behavior Problems, Bipolar Disorder, Depression, Previous Suicide Attempt, Psychiatric/Substance Abuse Tx, Schizophrenia, Violent Behavior, Psychiatric Problems Rheumatology: History of;: Rheumatoid Arthritis Musculoskeletal: No history of: Amputation - Surgical History HEENT Surgeries: Surgical HX of: Tonsilectomy & Adenoidectomy Abdominal Surgeries: Surgical HX of: Abdominal Surgery (Spleenectomy) - Family History Family History: Reports;: Family Cancer - Social History Smoking Status: Current every day smoker Type of Drug Use: Marijuana, Methamphetamine Infectious Disease Exam H&P - Constitutional Vitals: Vital Signs Temp Pulse Resp BP Pulse Ox 98.4 F 116 H 20 159/94 96 12/04/16 15:06 12/04/16 15:06 12/04/16 15:06 12/04/16 15:06 12/04/16 15:06 Intake and Output 12/04/16 12/04/16 12/04/16 07:59 15:59 23:59 Intake Total 720 / 720 2049 / 2049 1000 / 1000 Output Total 1600 / 1600 Balance -880 / -880 2049 / 2049 1000 / 1000 Intake: IV 1500 / 1500 1000 / 1000 Ns 1,000 ml @ 125 mls/hr 1000 / 1000 1000 / 1000 IV .Q8H SEEMA Rx#: [id number] Vancomycin Inj 1,000 mg 500 / 500 In Ns 250 ml @ 250 mls/hr IV Q8H SEEMA Rx#: [id number] Oral 720 / 720 550 / 550 Output: Urine 1600 / 1600 Other: Voiding Method Urinal Toilet # Voids 4 5 # Bowel Movements 0 Exam: General: Patient relatively comfortable, nontoxic appearing HEENT: Mucous membranes pink and moist, anicteric acyanotic, CASA, no oropharyngeal exudates Neck: Supple, no thyroid gland enlargement Respiratory system: Breath sounds vesicular, no crepitations or wheezes Cardiovascular: Normal S1 and S2, no murmurs appreciated Abdomen: Normal bowel sounds, soft nontender throughout, no organomegaly or mass Genitourinary: No suprapubic pain or bladder distention Extremities: no edema Skin: No rash Reports - Labs CBC & BMP: 12/04/16 05:40 12/04/16 05:40 Labs: Laboratory Results - last 24 hr 12/04/16 12/04/16 12/04/16 05:40 05:40 15:31 WBC 10.1 RBC 3.10 L Hgb 8.8 L Hct 26.9 L MCV 86.8 L MCH 28 MCHC 32.7 RDW 19.8 H Plt Count 671 H MPV 10.6 Neut % (Auto) 43.2 Lymph % (Auto) 42.9 [place] % (Auto) 9.2 Eos % (Auto) 3.8 Baso % (Auto) 0.4 Neut # (Auto) 4.4 Lymph # (Auto) 4.3 H [place] # (Auto) 0.9 H Eos # (Auto) 0.4 Baso # (Auto) 0.0 Immature Gran % 0.5 Nucleated RBC % 0.2 Immature Gran # 0.05 Nucleated RBCs # 0.02 Sodium 138 Potassium 4.4 Chloride 102 Carbon Dioxide 29 Anion Gap 11.4 BUN 10 Creatinine 0.60 L GFR Calculation 132 BUN/Creatinine Ratio 16.00 Glucose 103 Calculated Osmolality 273.7 Calcium 8.8 Magnesium 2.0 Total Bilirubin 0.50 AST 10 ALT 17 Alkaline Phosphatase 90 Total Protein 6.3 L Albumin 2.4 L Globulin 3.9 H Albumin/Globulin Ratio 0.6 L Vancomycin Trough 16.7 - Reports Microbiology: Microbiology 12/03/16 15:44 Blood Culture - Preliminary Blood No growth at 1 day 12/03/16 15:44 Blood Culture - Preliminary Blood No growth at 1 day 12/03/16 12:16 Urine Culture - Preliminary Urine,Clean Catch No Growth at 24 hours. - Diagnostic Findings Procedure: Ultrasound: report reviewed by me (Echo unremarkable, previous study from last admission noted to have had an good window with good views of the valves and no evidence of endocarditis; patient had refused TEG last admission)
[2016-12-04] MEDS ORDERED: clonazePAM 0.5 MG TABLET PO SCH (21:00)
[2016-12-05] MEDS: SODIUM CHLORIDE 0.9% 1,000 ML IV SCH ×4 (00:25→21:01)
[2016-12-05] MEDS: VANCOMYCIN INJ 1,000 MG in SODIUM CHLORIDE 0.9% 250 ML IV SCH ×3 (00:25→17:25)
[2016-12-05] MEDS: HYDROmorphone 2 MG/1 ML VIAL IV PRN ×4 (00:26→18:11)
[2016-12-05 07:54] LABS: Basophils # 0.1 10*3/uL (0.0-0.2); Basophils % 0.6 % (0.0-0.8); Eosinophils # 0.2 10*3/uL (0.0-0.87); Eosinophils % 2.2 % (0.00-10.9); Hematocrit 29.2 VOL% (42.0-52.0); Hemoglobin 9.4 GM/DL (14.0-18.0); Immature Granulocytes % 0.5 %; Immature Granulocytes Absolute 0.05 #; Lymphocytes # 3.4 10*3/uL (1.4-4.0); Lymphocytes % 31.2 % (21.2-54.2); Mean Corpuscular HGB Conc 32.2 GM/DL (32-36); Mean Corpuscular Hemoglobin 28 PG (27-34); Mean Corpuscular Volume 87.2 FL (87-102); Mean Platelet Volume 10.9 FL (9.6-12.0); Monocytes % 9.5 % (1.7-12.7); Neutrophils # 6.1 10*3/uL (1.4-7.4); Platelet Count 652 T/CUMM (130-400); Red Blood Count 3.35 MC/CUMM (3.8-5.5); Red Cell Distribution Width 19.9 % (9.3-17.3); White Blood Count 10.9 T/CUMM (4-12)
[2016-12-05] MEDS: PANTOPRAZOLE 40 MG TABLET PO SCH (09:36)
[2016-12-05] MEDS: predniSONE 10 MG TABLET PO SCH (09:36)
[2016-12-05] MEDS: NICOTINE 21 MG/24 HR PATCH TRANSDERM SCH (09:37)
--- NOTE | 2016-12-05 12:04 | Infectious Disease Progress ---
Assessment and Plan (1) Polysubstance abuse Status: Acute Current Visit: Yes (2) Rheumatoid arthritis Status: Acute Current Visit: Yes (3) Asplenia Status: Acute Current Visit: No (4) MRSA (methicillin resistant Staphylococcus aureus) septicemia Status: Acute Assessment and plan: Prolonged MRSA septicemia - patient has immunocompromised state [he is on Enbrel and is asplenic] which increases risk for such serious infections. Also IV drug use which increases his risk. No evidence of endocarditis on TTE. Recommendations: 1. Continue vancomycin with close monitoring of the trough levels and also renal function 2. Cannot make a determination on duration of antibiotic therapy until we get back negative blood cultures. Once cultures are negative then the plan will be to treat the patient for 4 weeks from the date of the negative cultures 3. Do not place PICC line until we document that his blood cultures are negative 4. Patient denied for specialty LTAC. Would hold discharge until we document that his blood cultures are indeed negative then I will be okay with him going to any other swing bed. Current Visit: No Infectious Disease - PN: Subj Interval history: Patient feels a bit malaised today but no specific complaints. He has been afebrile. No cough or shortness of breath, no vomiting or diarrhea. Infectious Disease Exam (PN) - Constitutional Vitals: Temp Pulse Resp BP Pulse Ox 98.2 F 89 19 159/80 96 12/05/16 07:30 12/05/16 07:30 12/05/16 07:30 12/05/16 07:30 12/05/16 07:30 General appearance: over weight Exam: General appearance: no acute distress but just looks a little malaise - Eye Eye exam: Present: EOMI. no icterus Pupils: Present: CASA - ENT ENT exam: no oropharyhgeal exudates - Respiratory Respiratory exam: vesicular BS, no crepitations or wheezes - Cardiovascular Cardiovascular exam: regular rate and rhythm, no murmurs - GI/Abdominal GI/Abdominal exam: normal bowel sounds, soft, non-tender, no organomegaly or mass - Extremities Exam Extremities exam: no edema - Skin Skin exam: no rash Results - Labs CBC & BMP: 12/05/16 06:23 12/04/16 05:40 Lab Results: I have reviewed the past 24 hour labs (Blood cultures from the 24th negative to date)
[2016-12-05] MEDS: ENOXAPARIN 40 MG/0.4 ML SYRINGE SUBCUT SCH (14:13)
[2016-12-05] MEDS: clonazePAM 0.5 MG TABLET PO PRN ×2 (14:17→20:59)
--- NOTE | 2016-12-05 15:54 | Hospitalist Progress Note ---
Assessment and Plan (1) Substance use disorder Status: Acute Current Visit: No (2) MRSA bacteremia Status: Acute Assessment and plan: Vancomycin Blood cultures negative after 1 day, continue to follow ID assisting Current Visit: No (3) Rheumatoid arthritis Status: Acute Current Visit: Yes Hospitalist: Subjective Interval history: No acute events overnight. Still complaining of hip pain. Still wants to know if his dilaudid interval can be decreased. Working on placement. Exam - Constitutional Vitals: Period Temp Pulse Resp BP Sys/Maxwell Pulse Ox Last 24 Hr 97.8 F-98.2 F 84-110 18-20 113-159/61-80 95-98 General appearance: normal weight - Head Head exam: Present: normocephalic, atraumatic - Eye Eye exam: Present: EOMI Pupils: Present: CASA - ENT ENT exam: Present: normal exam - Neck Neck exam: Present: normal inspection - Respiratory Respiratory exam: Present: clear to auscultation bilaterally. Absent: rhonchi, wheezes - Cardiovascular Cardiovascular exam: Present: regular rate and rhythm - GI/Abdominal GI/Abdominal exam: Present: normal bowel sounds, soft. Absent: tenderness, rebound - Extremities Exam Extremities exam: Present: normal inspection - Back Exam Back exam: Present: normal inspection - Neurological Exam Neurological exam: Present: alert, oriented X3 - Psychiatric Psychiatric exam: Present: normal affect, normal mood - Skin Skin exam: Present: warm, intact Results - Labs CBC & BMP: 12/05/16 06:23 12/04/16 05:40
[2016-12-06] MEDS: VANCOMYCIN INJ 1,000 MG in SODIUM CHLORIDE 0.9% 250 ML IV SCH ×4 (00:36→23:57)
[2016-12-06] MEDS: HYDROmorphone 2 MG/1 ML VIAL IV PRN ×5 (00:40→23:50)
[2016-12-06] MEDS: SODIUM CHLORIDE 0.9% 1,000 ML IV SCH ×5 (05:48→22:18)
[2016-12-06 06:27] LABS: Basophils # 0.1 10*3/uL (0.0-0.2); Eosinophils # 0.2 10*3/uL (0.0-0.87); Eosinophils % 2.6 % (0.00-10.9); Hematocrit 30.2 VOL% (42.0-52.0); Hemoglobin 9.8 GM/DL (14.0-18.0); Immature Granulocytes % 0.4 %; Immature Granulocytes Absolute 0.04 #; Lymphocytes # 3.9 10*3/uL (1.4-4.0); Mean Corpuscular HGB Conc 32.5 GM/DL (32-36); Mean Corpuscular Hemoglobin 28 PG (27-34); Mean Corpuscular Volume 86.5 FL (87-102); Mean Platelet Volume 10.8 FL (9.6-12.0); Monocytes % 11.2 % (1.7-12.7); Neutrophils # 3.8 10*3/uL (1.4-7.4); Neutrophils % 41.8 % (38.7-73.9); Platelet Count 729 T/CUMM (130-400); Red Blood Count 3.49 MC/CUMM (3.8-5.5); Red Cell Distribution Width 19.6 % (9.3-17.3); White Blood Count 9.1 T/CUMM (4-12)
[2016-12-06 07:01] LABS: Calcium 9.5 MG/DL (8.5-10.1); Magnesium 2.2 MG/DL (1.8-2.4); Osmolality,Calculated 272.7 MOS/KG (273-304); Potassium 4.8 MMOL/L (3.5-5.1)
[2016-12-06] MEDS: PANTOPRAZOLE 40 MG TABLET PO SCH (08:07)
[2016-12-06] MEDS: NICOTINE 21 MG/24 HR PATCH TRANSDERM SCH (08:07)
[2016-12-06] MEDS: clonazePAM 0.5 MG TABLET PO PRN ×2 (08:07→21:03)
[2016-12-06] MEDS: predniSONE 10 MG TABLET PO SCH (08:07)
--- NOTE | 2016-12-06 08:48 | XRay Report ---
History: Hip pain Date: 12/06/2016 Study: Right hip 2 views Comparison exam: November 25, 2016 There is no fracture, dislocation, or focal destructive osseous abnormality. Impression: Negative exam PROCEDURE INTERPRETED AT [facility] DEPARTMENT OF RADIOLOGY Final Report Signed by: Dr. Carolina Schwab
--- NOTE | 2016-12-06 13:29 | Hospitalist Progress Note ---
Assessment and Plan (1) Substance use disorder Status: Acute Current Visit: No (2) MRSA bacteremia Status: Acute Assessment and plan: Vancomycin Blood cultures negative after 1 day, continue to follow ID assisting Current Visit: No (3) Rheumatoid arthritis Status: Acute Current Visit: Yes (4) Hip pain, right Status: Acute Assessment and plan: Patient reports this is new during his last admission Xray negative Obtain MRI Current Visit: Yes Hospitalist: Subjective Interval history: No acute events overnight. Patient continues to complain of excrutiating right hip pain. Exam - Constitutional Vitals: Period Temp Pulse Resp BP Sys/Maxwell Pulse Ox Last 24 Hr 97.4 F-98.6 F 91-98 18-20 132-153/75-91 95-99 General appearance: normal weight - Head Head exam: Present: normocephalic, atraumatic - Eye Eye exam: Present: EOMI Pupils: Present: CASA - ENT ENT exam: Present: normal exam - Neck Neck exam: Present: normal inspection - Respiratory Respiratory exam: Present: clear to auscultation bilaterally. Absent: rhonchi, wheezes - Cardiovascular Cardiovascular exam: Present: regular rate and rhythm - GI/Abdominal GI/Abdominal exam: Present: normal bowel sounds, soft. Absent: tenderness, rebound - Extremities Exam Extremities exam: Present: normal inspection - Back Exam Back exam: Present: normal inspection - Neurological Exam Neurological exam: Present: alert, oriented X3 - Psychiatric Psychiatric exam: Present: normal affect, normal mood - Skin Skin exam: Present: warm, intact Results - Labs CBC & BMP: 12/06/16 05:24 12/06/16 05:24 Specialty Discharge - Follow Up or Referrals
[2016-12-06] MEDS: ENOXAPARIN 40 MG/0.4 ML SYRINGE SUBCUT SCH (13:59)
--- NOTE | 2016-12-06 16:38 | Infectious Disease Progress ---
Assessment and Plan (1) Polysubstance abuse Status: Acute Current Visit: Yes (2) Rheumatoid arthritis Status: Acute Current Visit: Yes (3) Asplenia Status: Acute Current Visit: No (4) MRSA (methicillin resistant Staphylococcus aureus) septicemia Status: Acute Assessment and plan: Prolonged MRSA septicemia -it seems his blood may have finally stabilized. Continues to tolerate vancomycin with normal renal function. Trough level has been therapeutic. Recommendations: 1. Continue vancomycin with close monitoring 2. Cannot make a determination on duration of antibiotic therapy until we get back negative blood cultures. Once cultures are negative then the plan will be to treat the patient for 4 weeks from the date of the negative cultures 3. Do not place PICC line until we document that his blood cultures are negative Current Visit: No Infectious Disease - PN: Subj Interval history: Patient doing generally okay except for joint pains especially pain in the hips. He has not had fever. No nausea vomiting or diarrhea. No cough or shortness of breath. Infectious Disease Exam (PN) - Constitutional Vitals: Temp Pulse Resp BP Pulse Ox 98.6 F 91 H 20 132/75 96 12/06/16 12:00 12/06/16 12:00 12/06/16 12:00 12/06/16 12:00 12/06/16 12:00 General appearance: normal weight Exam: General appearance: no acute distress, more alert and interactive today - Eye Eye exam: Present: EOMI. no icterus Pupils: Present: CASA - ENT ENT exam: no oral exudates - Respiratory Respiratory exam: vesicular BS, no crepitations or wheezes - Cardiovascular Cardiovascular exam: regular rate and rhythm, no murmurs - GI/Abdominal GI/Abdominal exam: normal bowel sounds, soft, non-tender, no organomegaly or mass - Extremities Exam Extremities exam: no edema - Skin Skin exam: no rash Results - Labs CBC & BMP: 12/06/16 05:24 12/06/16 05:24 Lab Results: I have reviewed the past 24 hour labs (Blood cultures 2 negative at day 3) Specialty Discharge - Follow Up or Referrals
--- NOTE | 2016-12-06 16:58 | Magnetic Resonance Report ---
Exam: MR hip RT wo con Date: 12/06/2016 1:25 PM Indication: Hip pain Comparison: 12/06/[address] scan of the abdomen pelvis 11/26/2016. Technical 1.5 Megan magnet Axial sagittal and coronal imaging obtained. Findings: The femoral heads are seated within the acetabular region bilaterally. Some fatty marrow degenerative signal changes are present. The greater lesser trochanteric regions are intact. The acetabulum is unremarkable. No obvious significant joint effusion present. Degenerative changes are present along the acetabular regions. There is abnormal signal in the right sacrum and SI joints and iliac wing area with T2-weighted signal and edema present. The left iliac wing and sacrum region are unremarkable. The glenoid labrum reveals degenerative changes. Minimal fluid signal along the right iliacus muscle. Lower lumbar spine reveals no obvious abnormalities. The bladder is unremarkable for acute findings. The anterior and posterior thigh musculature otherwise intact.. Impression: 1. Fatty marrow degenerative signal changes within the hips without fracture 2. Minimal edematous signal along the right sacrum and SI joint iliac wing junction 3. Minimal fluid signal along the right iliacus muscle. 4. No obvious asymmetric joint effusion PROCEDURE INTERPRETED AT [facility] DEPARTMENT OF RADIOLOGY Final Report Signed by: Dr. Raman Foote
[2016-12-07] MEDS: VANCOMYCIN INJ 1,000 MG in SODIUM CHLORIDE 0.9% 250 ML IV SCH ×3 (01:29→17:31)
[2016-12-07] MEDS: HYDROmorphone 2 MG/1 ML VIAL IV PRN ×3 (06:13→18:16)
[2016-12-07] MEDS: clonazePAM 0.5 MG TABLET PO PRN ×2 (06:21→17:30)
[2016-12-07] MEDS: NICOTINE 21 MG/24 HR PATCH TRANSDERM SCH (09:41)
[2016-12-07] MEDS: PANTOPRAZOLE 40 MG TABLET PO SCH (09:42)
[2016-12-07] MEDS: predniSONE 10 MG TABLET PO SCH (09:42)
--- NOTE | 2016-12-07 11:44 | Infectious Disease Progress ---
Assessment and Plan (1) Polysubstance abuse Status: Acute Current Visit: Yes (2) Rheumatoid arthritis Status: Acute Current Visit: Yes (3) Asplenia Status: Acute Current Visit: No (4) MRSA (methicillin resistant Staphylococcus aureus) septicemia Status: Acute Assessment and plan: Prolonged MRSA septicemia -it seems his blood may have finally stabilized. Continues to tolerate vancomycin with normal renal function. Recommendations: 1. Continue vancomycin with close monitoring 2. If blood cultures negative by Saturday he can get PICC and then probably go to swing bed to complete his 4 weeks of antibiotic therapy Discussed with his mother at bedside Current Visit: No Infectious Disease - PN: Subj Interval history: Patient doing well, no nausea vomiting or diarrhea, no cough shortness of breath , no fever. Main complaint is pains in his joints although he says his right hip is less painful today. Infectious Disease Exam (PN) - Constitutional Vitals: Temp Pulse Resp BP Pulse Ox 98.7 F 90 20 128/78 95 12/07/16 03:44 12/07/16 03:44 12/07/16 03:44 12/07/16 03:44 12/07/16 03:44 General appearance: normal weight Exam: General appearance: no acute distress - Eye Eye exam: Present: EOMI. no icterus Pupils: Present: CASA - ENT ENT exam: no oral exudates - Respiratory Respiratory exam: vesicular BS, no crepitations or wheezes - Cardiovascular Cardiovascular exam: regular rate and rhythm, no murmurs - GI/Abdominal GI/Abdominal exam: normal bowel sounds, soft, non-tender, no organomegaly or mass - Extremities Exam Extremities exam: no edema, mild left wrist swelling - Skin Skin exam: no rash Results - Labs CBC & BMP: 12/06/16 05:24 12/06/16 05:24 Lab Results: I have reviewed the past 24 hour labs (Blood cultures remain negative today) - Diagnostic Findings Procedure: MRI: report reviewed by me (Right hip MRI unremarkable) Specialty Discharge - Follow Up or Referrals
[2016-12-07] MEDS: ENOXAPARIN 40 MG/0.4 ML SYRINGE SUBCUT SCH (12:24)
[2016-12-07] MEDS ORDERED: predniSONE 10 MG TABLET PO SCH ×2 (12:43→12:46)
--- NOTE | 2016-12-07 12:47 | Hospitalist Progress Note ---
Assessment and Plan (1) Substance use disorder Status: Acute Current Visit: No (2) MRSA bacteremia Status: Acute Assessment and plan: Vancomycin Blood cultures negative to date, continue to follow ID assisting Current Visit: No (3) Rheumatoid arthritis Status: Acute Assessment and plan: Now complaining of joint pain Will check his inflammatory markers, if elevated will increase his steroids Will start scheduled meloxicam for now It's also possible that he just wants more pain medicine Current Visit: Yes (4) Hip pain, right Status: Acute Assessment and plan: Patient reports this is new during his last admission Xray negative MRI without acute process Current Visit: Yes Hospitalist: Subjective Interval history: No acute events overnight. Seen today ambulating around the halls. Patient now complaining of joint pain. Exam - Constitutional Vitals: Period Temp Pulse Resp BP Sys/Maxwell Pulse Ox Last 24 Hr 97.4 F-98.9 F 90-113 16-20 126-154/75-99 95-96 General appearance: normal weight - Head Head exam: Present: normocephalic, atraumatic - Eye Eye exam: Present: EOMI Pupils: Present: CASA - ENT ENT exam: Present: normal exam - Neck Neck exam: Present: normal inspection - Respiratory Respiratory exam: Present: clear to auscultation bilaterally. Absent: rhonchi, wheezes - Cardiovascular Cardiovascular exam: Present: regular rate and rhythm - GI/Abdominal GI/Abdominal exam: Present: normal bowel sounds, soft. Absent: tenderness, rebound - Extremities Exam Extremities exam: Present: normal inspection - Back Exam Back exam: Present: normal inspection - Neurological Exam Neurological exam: Present: alert, oriented X3 - Psychiatric Psychiatric exam: Present: normal affect, normal mood - Skin Skin exam: Present: warm, intact Results - Labs CBC & BMP: 12/06/16 05:24 12/06/16 05:24 Specialty Discharge - Follow Up or Referrals
[2016-12-07] MEDS: MELOXICAM 7.5 MG TABLET PO SCH (13:05)
[2016-12-07] MEDS: SODIUM CHLORIDE 0.9% 1,000 ML IV SCH (17:32)
[2016-12-08] MEDS: HYDROmorphone 2 MG/1 ML VIAL IV PRN ×4 (00:31→18:43)
[2016-12-08] MEDS: SODIUM CHLORIDE 0.9% 1,000 ML IV SCH ×2 (00:37→09:29)
[2016-12-08] MEDS: VANCOMYCIN INJ 1,000 MG in SODIUM CHLORIDE 0.9% 250 ML IV SCH ×3 (01:41→17:44)
[2016-12-08 08:21] LABS: Calcium 9.4 MG/DL (8.5-10.1); Magnesium 2.2 MG/DL (1.8-2.4); Osmolality,Calculated 277.4 MOS/KG (273-304); Potassium 4.4 MMOL/L (3.5-5.1)
[2016-12-08] MEDS: predniSONE 20 MG TABLET PO SCH (09:27)
[2016-12-08] MEDS: MELOXICAM 7.5 MG TABLET PO SCH (09:27)
[2016-12-08] MEDS: PANTOPRAZOLE 40 MG TABLET PO SCH (09:27)
[2016-12-08] MEDS: NICOTINE 21 MG/24 HR PATCH TRANSDERM SCH (09:29)
--- NOTE | 2016-12-08 10:08 | Hospitalist Progress Note ---
Assessment and Plan (1) MRSA bacteremia Status: Acute Assessment and plan: Impression: 1. MRSA bacteremia 2. Rheumatoid arthritis Plan: Continue current antibiotics. Increase activity as he tolerates. Plan for discharge to a stepdown unit once all the arrangements are made. This note was completed using [employer] voice recognition software. There may be edger feeder errors as a result. Current Visit: No Hospitalist: Subjective Interval history: Follow-up MRSA bacteremia. The patient is tolerating vancomycin fairly well. He is up and about in the hallways intermittently. The plan will be to discharge to a swing bed or LTAC for completion of his IV antibiotics. Most recent set of blood cultures negative. Exam - Constitutional Vitals: Period Temp Pulse Resp BP Sys/Maxwell Pulse Ox Last 24 Hr 97.4 F-99.2 F 93-115 18-21 131-161/70-99 94-97 Vital signs are noted above. Heart is regular with no murmur or gallop. Lungs are clear. There are no splinter hemorrhages or subconjunctival hemorrhages. He is awake and alert Results - Labs CBC & BMP: 12/06/16 05:24 12/08/16 05:16 Lab Results: I have reviewed the past 24 hour labs Specialty Discharge - Follow Up or Referrals
[2016-12-08] MEDS: ENOXAPARIN 40 MG/0.4 ML SYRINGE SUBCUT SCH (12:55)
[2016-12-08] MEDS: clonazePAM 0.5 MG TABLET PO PRN (21:15)
[2016-12-09] MEDS: HYDROmorphone 2 MG/1 ML VIAL IV PRN ×4 (00:24→18:32)
[2016-12-09] MEDS: SODIUM CHLORIDE 0.9% 1,000 ML IV SCH ×2 (00:30→06:09)
[2016-12-09] MEDS: VANCOMYCIN INJ 1,000 MG in SODIUM CHLORIDE 0.9% 250 ML IV SCH ×3 (02:00→18:33)
[2016-12-09] MEDS: NICOTINE 21 MG/24 HR PATCH TRANSDERM SCH (08:30)
[2016-12-09] MEDS: MELOXICAM 7.5 MG TABLET PO SCH (08:31)
[2016-12-09] MEDS: PANTOPRAZOLE 40 MG TABLET PO SCH (08:31)
[2016-12-09] MEDS: clonazePAM 0.5 MG TABLET PO PRN ×2 (08:32→21:31)
[2016-12-09] MEDS: predniSONE 20 MG TABLET PO SCH (08:33)
--- NOTE | 2016-12-09 10:09 | Hospitalist Progress Note ---
Assessment and Plan (1) MRSA bacteremia Status: Acute Assessment and plan: Impression: 1. MRSA bacteremia 2. Rheumatoid arthritis Plan: Continue current antibiotics. Plan for discharge to a stepdown unit if he is accepted. This note was completed using [employer] voice recognition software. There may be orthodontic laboratory technician errors as a result. Current Visit: No Hospitalist: Subjective Interval history: Follow-up MRSA bacteremia and rheumatoid arthritis. The patient continues on IV antibiotics. He is up and about in the room, and also walking up and down the halls. He is enjoying the opioids. Exam - Constitutional Vitals: Period Temp Pulse Resp BP Sys/Maxwell Pulse Ox Last 24 Hr 97.2 F-98.8 F 98-111 20-20 121-153/72-97 93-96 Vital signs are noted above. Heart is regular with distant tones and a soft systolic murmur. Lungs are clear with no rales or wheezes. He has a warm left wrist. There are no subconjunctival or nailbed hemorrhages noted. Results - Labs CBC & BMP: 12/06/16 05:24 12/08/16 05:16 Lab Results: I have reviewed the past 24 hour labs Specialty Discharge - Follow Up or Referrals
[2016-12-09] MEDS: ENOXAPARIN 40 MG/0.4 ML SYRINGE SUBCUT SCH (12:37)
[2016-12-10] MEDS: HYDROmorphone 2 MG/1 ML VIAL IV PRN ×3 (00:33→12:44)
[2016-12-10] MEDS: VANCOMYCIN INJ 1,000 MG in SODIUM CHLORIDE 0.9% 250 ML IV SCH ×2 (00:35→10:56)
[2016-12-10] MEDS: SODIUM CHLORIDE 0.9% 1,000 ML IV SCH (07:31)
--- NOTE | 2016-12-10 09:19 | Discharge Summary ---
Hospital Course - Hospital Course Hospital Course: Mr Piedra came back for treatment of his MRSA bacteremia. He has responded to IV Vanc and has negative blood cultures since December 03. He will get PICC line today and then go to swing bed to complete treatment of his infection for 4 weeks after December 03. He denies pain or shortness of breath. He has been counselled to stop using IV drugs. - Time spent with patient Time with patient DS: Greater than 30 minutes (40 minutes spent in discharge planning, care coordination, documentation, medicine reconciliation) Diagnosis - Discharge Diagnosis (1) MRSA bacteremia Status: Acute (2) Rheumatoid arthritis Status: Chronic Specialty Discharge - Follow Up or Referrals Follow up with: Your, PCP [Other] (1 month ) Holly Ledesma MD [Physician] - 01/10/17 9:45 am - Speciality Discharge Instructions Infectious Disease Instructions: Vanc IV for 4 weeks from December 03, (with monitoring of CBC and Creatinine 2x a week)--. December 31. refer questions about infusion to Dr Ledesma Discharge Plan - Discharge Data Disposition: Swing Bed, [facility] Based, [facility] Condition at Discharge: Guarded Discharge Diet: regular diet Activity: resume usual activities as tolerated, as per physical therapy - Discharge Medications New clonazePAM TAB [KlonoPIN] 0.25 mg PO BID PRN tablet PRN Reason: Anxiety Docusate Sodium Cap [Colace Cap] 100 mg PO BID PRN capsule PRN Reason: Constipation Meloxicam [Mobic] 7.5 mg PO DAILY tablet Nicotine 21 mg/24 Hr Patch [Nicoderm CQ 21 mg/24 hr Patch] 1 patch TRANSDERM DAILY patch Pantoprazole Tab [Protonix Tab] 40 mg PO DAILY tablet Vancomycin Inj 1,000 mg IV Q8H vial Zaleplon [Sonata] 5 mg PO BEDTIME PRN capsule PRN Reason: Insomnia Acetaminophen Tab [Tylenol Tab] 325 mg PO Q4H PRN tablet PRN Reason: fever, headache/body aches HYDROcodone/ACETAMIN 5-325 [[place] 5-325] 1 tablet PO Q4H PRN tablet PRN Reason: Pain Mild (1-3) predniSONE TAB [PredniSONE] 20 mg PO DAILY tablet Continue Etanercept [Enbrel] 50 mg IM MOTH Discontinued Hydrocodone/Acetaminophen [[place] 10-325 Tablet] 1 each PO TID predniSONE TAB [PredniSONE] 10 mg PO DAILY - Follow Up or Referral Follow Up: Your, PCP [Other] (1 month ) Holyl Ledesma MD [Physician] - 01/10/17 9:45 am - Forms/Instructions Instructions: Methicillin Resistant Staphylococcus Aureus (DC) Exam - Constitutional Vitals: Period Temp Pulse Resp BP Sys/Maxwell Pulse Ox Last 24 Hr 97.7 F-98.9 F 89-117 18-20 143-171/59-98 93-99 General appearance: normal weight, no acute distress - Eye Eye exam: Present: EOMI. Absent: scleral icterus - Respiratory Respiratory exam: Present: clear to auscultation bilaterally - Cardiovascular Cardiovascular exam: Present: regular rate and rhythm - GI/Abdominal GI/Abdominal exam: Present: normal bowel sounds, soft. Absent: tenderness - Extremities Exam Extremities exam: Absent: edema - Skin Skin exam: Absent: rash Discharge Results Procedures and tests throughout hospitalization: Pending Orders 12/10/16 US guide vascular access Routine 12/10/16 08:49 IR PICC line insertion Stat DS: Provider Date of admission: 12/03/16 13:48 Primary care physician: . No PCP Attending physician on admission: Nancy Levi MD Consults: 12/03/16 12:50 Consult to Physician [CONS] Routine Comment: mrsa Consulting Provider: Holly Ledesma When should Consulting Provider be notified: Now Person Notified: Rebecca Date Notified: 12/03/16 Time Notified: 15:16 12/03/16 12:53 Consult to Case Mgmt/Social Srvs [CONS] Routine Reason for Case Mgmt/Social Srvs: Rehab Other 12/04/16 12:59 Consult to Case Mgmt/Social Srvs [CONS] Routine Reason for Case Mgmt/Social Srvs: LTAC 12/06/16 13:26 Consult to Pharmacy [CONS] Routine Reason for Pharmacy Consult: Dose/Manage Vancomycin Discharging clinician: Noemi Watson MD
--- NOTE | 2016-12-10 10:38 | Post Interventional Procedure ---
Pre-op diagnosis: MRSA bacteremia Post-op diagnosis: same Procedure: PICC LUE Flouroscopy: 0.1 min Radiologist: Isaias Fitch Anesthesia: local Specimens: none sent Estimated blood loss: none Complications: none Condition: stable
[2016-12-10] MEDS: NICOTINE 21 MG/24 HR PATCH TRANSDERM SCH (10:54)
[2016-12-10] MEDS: MELOXICAM 7.5 MG TABLET PO SCH (10:55)
[2016-12-10] MEDS: PANTOPRAZOLE 40 MG TABLET PO SCH (10:56)
[2016-12-10] MEDS: predniSONE 20 MG TABLET PO SCH (11:24)
[2016-12-10 12:26] VITALS: BP 152/98
--- NOTE | 2016-12-10 12:37 | Interventional Radiology Rpt ---
IR PICC line insertion, US guide vascular access Indication: MRSA bacteremia. Long-term IV antibiotics. PICC LINE Description: A formal timeout was performed. Maximum sterile barrier technique was used. Sonographic evaluation of the left upper extremity demonstrates patent and compressible brachial vein. The upper arm was prepped and draped in sterile fashion. 3 cc 1% lidocaine was administered subcutaneously. Under sonographic guidance, a micropuncture needle was advanced into the vein. A captured sonographic image documents the position of the needle. Needle was exchanged over a wire for a peel-away sheath. A dual lumen power PICC, cut to 43 cm, was advanced over the wire until the tip was at the RA-SVC junction. The position of the catheter was confirmed with fluoroscopic guidance and an image stored in PACS. The wire and sheath were removed. Both ports of the PICC were aspirated and flushed with heparinized saline. The device was secured with a StatLock. Fluoroscopy: 0.1 minute. Impression: PICC line ready for immediate use. Routine catheter care. PROCEDURE INTERPRETED AT [facility] DEPARTMENT OF RADIOLOGY Final Report Signed by: Isaias Fitch M.D.
--- NOTE | 2016-12-10 12:38 | Infectious Disease Progress ---
Assessment and Plan (1) Polysubstance abuse Status: Acute Current Visit: Yes (2) Rheumatoid arthritis Status: Chronic Current Visit: Yes (3) Asplenia Status: Acute Current Visit: No (4) MRSA (methicillin resistant Staphylococcus aureus) septicemia Status: Acute Assessment and plan: Prolonged MRSA septicemia - blood started on this admission Recommendations: 1. Continue vancomycin until December 31 2. IRenal function monitoring every Saturday and Saturday when he remains on vancomycin 3. Monitor vancomycin trough level at least once per week on Mondays more frequently if outside of the desired range of 15-20 4. Appointment to see me in the office in about 2 weeks Discussed with his mother at bedside Current Visit: No Infectious Disease - PN: Subj Interval history: Doing fair, chronic pains in his hips joints from rheumatoid arthritis. No fever. No other new symptoms over the weekend. He is pending discharge to swing bed today. PICC line already placed today. Infectious Disease Exam (PN) - Constitutional Vitals: Temp Pulse Resp BP Pulse Ox 98.7 F 103 H 20 152/98 95 12/10/16 12:00 12/10/16 12:00 12/10/16 12:00 12/10/16 12:00 12/10/16 12:00 General appearance: normal weight Exam: General appearance: no acute distress - Eye Eye exam: Present: EOMI. no icterus Pupils: Present: CASA - ENT ENT exam: no oral exudates - Respiratory Respiratory exam: vesicular BS, no crepitations or wheezes - Cardiovascular Cardiovascular exam: regular rate and rhythm, no murmurs - GI/Abdominal GI/Abdominal exam: normal bowel sounds, soft, non-tender, no organomegaly or mass - Extremities Exam Extremities exam: no edema - Skin Skin exam: no rash Results - Labs CBC & BMP: 12/06/16 05:24 12/08/16 05:16 Lab Results: I have reviewed the past 24 hour labs (Blood cultures from the 24th negative 2 sets) Specialty Discharge - Follow Up or Referrals Follow up with: Your, PCP [Other] (1 month ) Holly Ledesma MD [Physician] - 01/10/17 9:45 am
[2016-12-10] MEDS: ENOXAPARIN 40 MG/0.4 ML SYRINGE SUBCUT SCH (13:53)
== END 2016-12-10 13:55 | disposition swing bed (61) | DRG 872 ==
LOC: N.ED 11:25 → SUATTDRO 13:48 → N.EDINP 13:48 → N.5E 15:13
PROVIDERS: ADMIT Internal Medicine; ATTEND Internal Medicine

== ENCOUNTER 2017-01-21 13:34 | Inpatient (IN) ==
[2017-01-21] MEDS ORDERED: ONDANSETRON 4 MG/2 ML VIAL IV STA (15:14)
[2017-01-21] MEDS ORDERED: KETOROLAC 30 MG/1 ML VIAL IV STA (15:20)
[2017-01-21] MEDS ORDERED: ONDANSETRON 4 MG/2 ML VIAL ONE (16:20)
[2017-01-21] MEDS ORDERED: KETOROLAC 30 MG/1 ML VIAL ONE (16:20)
[2017-01-21 16:25] LABS: Basophils % 0.1 % (0.0-0.8); Eosinophils % 0.1 % (0.00-10.9); Hematocrit 26.9 VOL% (42.0-52.0); Hemoglobin 9.1 GM/DL (14.0-18.0); Immature Granulocytes % 0.7 %; Immature Granulocytes Absolute 0.13 #; Lymphocytes # 1.9 10*3/uL (1.4-4.0); Lymphocytes % 9.7 % (21.2-54.2); Mean Corpuscular HGB Conc 33.8 GM/DL (32-36); Mean Corpuscular Hemoglobin 29 PG (27-34); Mean Corpuscular Volume 85.1 FL (87-102); Mean Platelet Volume 9.6 FL (9.6-12.0); Monocytes # 0.6 10*3/uL (0.11-0.8); Monocytes % 3.2 % (1.7-12.7); NRBC # 0.04 10*3/uL; Neutrophils # 16.8 10*3/uL (1.4-7.4); Neutrophils % 86.2 % (38.7-73.9); Red Blood Count 3.16 MC/CUMM (3.8-5.5); Red Cell Distribution Width 19.3 % (9.3-17.3); White Blood Count 19.5 T/CUMM (4-12)
[2017-01-21 16:29] LABS: Platelet Count 1115 T/CUMM (130-400)
[2017-01-21 16:59] LABS: Calcium 9.4 MG/DL (8.5-10.1); Potassium 4.1 MMOL/L (3.5-5.1)
--- NOTE | 2017-01-21 19:13 | Hospitalist History & Physical ---
Assessment and Plan - Time spent with patient Time spent with patient: Greater than 30 minutes (1) Leukocytosis Status: Acute Assessment and plan: Patient has a white count of 19 with no overt source currently. Blood cultures are pending. Will start the patient on empiric antibiotics. We will consult infectious disease for follow-up. Current Visit: No (2) History of rheumatoid arthritis Status: Acute Assessment and plan: Patient appears to be having a rheumatoid arthritis flare. He notes that he is allergic to methotrexate but has been on Enbrel per a rheumatology [employer] in [place]. He has not been able to follow-up with his snow remover and cannot get an appointment before March. Will admit patient and treated for pain. Current Visit: No (3) Arthralgia of multiple joints Status: Acute Current Visit: No (4) Asplenia Status: Acute Current Visit: No History of Present Illness Chief complaint: aching joints History of present illness: Mr. Piedra is a 46 year old white male with a past medical history significant for hypertension and rheumatoid arthritis who presents to the ED today with complaints of aching joints all over his body having onset 2 days ago. Patient reports that he was recently discharged from [facility] approximately 1 week ago after a 2 week rehab for continued antibiotic therapy status post bacteremia and hospital stay. The patient's last admission in December, his white count was last recorded as 9. He went home on oral antibiotics with infectious disease follow-up. Patient states he attempted to call Dr. Oracio Doan office on Saturday but was unable to reach anyone. On exam, the patient is noticeably uncomfortable, in pain and having difficulty moving. He does have multiple swollen joints that are warm to the touch, particularly in the right hand and bilateral wrists. Patient denies headache, chest pain, abdominal pain, nausea vomiting. He notes that he does see a snow remover in [place] but is unable to secure an appointment for March. He is currently taking Enbrel but has been off of his medications for the last month due to systemic infection. Lab work reveals WBC 19.5, hemoglobin 9.1, hematocrit 26.9 , platelet count 1115,, sodium 136, potassium 4.1, BUN 33, creatinine 0.90, serum glucose 145. Case has been discussed with both Dr. Salmeron, ED physician, and Dr. Golden, admitting physician and the patient will be admitted to the hospital medicine service for further evaluation and treatment. Patient is a full code. Home medications have been reviewed and reconciled. Home Medications Medication Instructions Recorded Confirmed Type Etanercept [Enbrel] 50 mg IM MOTH 11/25/16 12/03/16 History Acetaminophen Tab [Tylenol Tab] 325 mg PO Q4H PRN tablet 12/10/16 Rx Docusate Sodium Cap [Colace Cap] 100 mg PO BID PRN capsule 12/10/16 Rx HYDROcodone/ACETAMIN 5-325 [[place] 1 tablet PO Q4H PRN tablet 12/10/16 Rx 5-325] Meloxicam [Mobic] 7.5 mg PO DAILY tablet 12/10/16 Rx Nicotine 21 mg/24 Hr Patch 1 patch TRANSDERM DAILY patch 12/10/16 Rx [Nicoderm CQ 21 mg/24 hr Patch] Pantoprazole Tab [Protonix Tab] 40 mg PO DAILY tablet 12/10/16 Rx Vancomycin Inj 1,000 mg IV Q8H vial 12/10/16 Rx Zaleplon [Sonata] 5 mg PO BEDTIME PRN capsule 12/10/16 Rx clonazePAM TAB [KlonoPIN] 0.25 mg PO BID PRN tablet 12/10/16 Rx predniSONE TAB [PredniSONE] 20 mg PO DAILY tablet 12/10/16 Rx Allergies Allergy/AdvReac Type Severity Reaction Status Date / Time morphine Allergy Headache Verified 01/21/17 13:54 Medical,Surgical,& Family Hx - Medical History Psychological: No history of: Anxiety Disorders, ADHD, Behavior Problems, Bipolar Disorder, Depression, Previous Suicide Attempt, Psychiatric/Substance Abuse Tx, Schizophrenia, Violent Behavior, Psychiatric Problems Rheumatology: History of;: Rheumatoid Arthritis Musculoskeletal: No history of: Amputation - Surgical History HEENT Surgeries: Surgical HX of: Tonsilectomy & Adenoidectomy Abdominal Surgeries: Surgical HX of: Abdominal Surgery (Spleenectomy) - Family History Family History: Reports;: Family Cancer, Family Hypertension - Social History Smoking Status: Never smoker Frequency of Alcohol Use: None Type of Drug Use: None Marital Status: Single Lives With:: Alone Functional capacity: independent ambulation 12 point system: reviewed and no additional remarkable complaints except as stated Exam - Constitutional Vitals: Period Temp Pulse Resp BP Sys/Maxwell Pulse Ox Last 24 Hr 98.1 F-98.1 F 90-101 20-20 115-123/67-81 96-98 Exam: General appearance: normal weight, moderate distress - Head Head exam: Present: normocephalic, atraumatic - Eye Eye exam: Present: EOMI. Absent: conjunctival injection, nystagmus Pupils: Present: CASA, normal accommodation - ENT ENT exam: Present: normal exam, normal external ear exam - Neck Neck exam: Present: normal inspection. Absent: lymphadenopathy, tenderness, thyromegaly - Respiratory Respiratory exam: Present: clear to auscultation bilaterally. Absent: rales, rhonchi, wheezes - Cardiovascular Cardiovascular exam: Present: regular rate and rhythm. Absent: carotid bruit, gallop, rubs - GI/Abdominal GI/Abdominal exam: Present: normal bowel sounds. Absent: ascites, distended, mass - Extremities Exam Extremities exam: Present: Multiple tophi, swollen joints, limited range of motion absent: edema - Back Exam Back exam: Absent: CVA tenderness (L), CVA tenderness (R) - Neurological Exam Neurological exam: Present: alert, oriented X3, CN II-XII intact, reflexes normal - Psychiatric Psychiatric exam: Present: Anxious - Skin Skin exam: Present: normal color, warm, dry Results - Labs CBC & BMP: 01/21/17 16:11 01/21/17 16:11 Lab Results: I have reviewed the past 24 hour labs
[2017-01-21] MEDS ORDERED: ONDANSETRON 4 MG/2 ML VIAL IV PRN (19:19)
[2017-01-21] MEDS ORDERED: clonazePAM 0.5 MG TABLET PO PRN (19:20)
--- NOTE | 2017-01-21 19:25 | Emergency Department Note ---
Roby Madden Rolonda, am scribing for, and in the presence of, Eyal Salmeron M.D. 14:43. Jaron Madden Howard T, M.D., personally performed the services described in this documentation, ascribed by Sana Ca in my presence, and it is both accurate and complete . Arrival - Arrival Chief Complaint: Non-Specific Stated Complaint: BILATERAL HIP-JOINT PAIN ED Nursing Triage Note: c/o hip and wrist pain x's a few weeks progressivly gotten worse hx of rheumatoid arthritis pt discharged from [facility] care about 3 weeks ago for being treated for sepsis Mode of Arrival: Stretcher Limitations: No Limitations Source: Patient, Old Records Reviewed, RN Notes Reviewed - History of Present Illness HPI Narrative: Pt is a 46 y/o male who presets to the ED via EMS for further evaluation of bilateral wrist and right hip pain with an onset of weeks. Pt has a PMHx of RA. Pt was last seen in ED 2 months and was Dx with sepsis. Pt states that he was hospitalized for x2 months. He states that his left wrist is worse than the right but they both are swollen and painful. Pt states that he felt fine once he was d/c but the pain came back after x1 week. Pt states that his PCP cannot see him until April 02. He states that he has never had these sxs with his RA. He states that his last dose of Enbrel was days ago. He usually takes doses Enbrel Saturday, , or Saturday. Pt confirms that he had been off of the medication for a month. He states he completed ATBCX per ID specialist 2 weeks ago, resumed Embrel 1 week ago and has more arriving tomorrow.. He confirms that he takes Narco 10 x3 times a day and 10 mg Prednisone everyday, but is unclear when he ran out of norco. Pt states that he took a couple of Manning since he was seen in the ED. Pt is f/u by Dr. Smith. No other complaint/pain in ED. Onset (ago): week(s) Consistency: constant Severity: moderate Severity scale (1-10): 4 Allergies/Adverse Reactions: Allergies Allergy/AdvReac Type Severity Reaction Status Date / Time morphine Allergy Headache Verified 01/21/17 13:54 Home Medications: Home Medications Medication Instructions Recorded Confirmed Type Etanercept [Enbrel] 50 mg IM MOTH 11/25/16 12/03/16 History Acetaminophen Tab [Tylenol Tab] 325 mg PO Q4H PRN tablet 12/10/16 Rx Docusate Sodium Cap [Colace Cap] 100 mg PO BID PRN capsule 12/10/16 Rx HYDROcodone/ACETAMIN 5-325 [[place] 1 tablet PO Q4H PRN tablet 12/10/16 Rx 5-325] Meloxicam [Mobic] 7.5 mg PO DAILY tablet 12/10/16 Rx Nicotine 21 mg/24 Hr Patch 1 patch TRANSDERM DAILY patch 12/10/16 Rx [Nicoderm CQ 21 mg/24 hr Patch] Pantoprazole Tab [Protonix Tab] 40 mg PO DAILY tablet 12/10/16 Rx Vancomycin Inj 1,000 mg IV Q8H vial 12/10/16 Rx Zaleplon [Sonata] 5 mg PO BEDTIME PRN capsule 12/10/16 Rx clonazePAM TAB [KlonoPIN] 0.25 mg PO BID PRN tablet 12/10/16 Rx predniSONE TAB [PredniSONE] 20 mg PO DAILY tablet 12/10/16 Rx Review of System - Review of System 12 point system: reviewed and no additional remarkable complaints except as stated - Review of System Constitutional: Present: fever. Absent: chills Eyes: Absent: discharge Head/Ears/Nose/Throat: Absent: earache Respiratory: Absent: cough Cardiovascular: Absent: chest pain Gastrointestinal: Absent: nausea Genitourinary male: Absent: dysuria Musculoskeletal: Present: arm pain (bilateral wrist swollen and painful), leg pain (hip). Absent: back pain, neck pain Skin: Absent: rash Neurological: Absent: headache Psychiatric: Absent: anxiety Endocrine: Absent: cold intolerance Hematological/Lymphatic: Absent: easy bleeding Allergic/Immunologic: Absent: facial swelling Medical,Surgical,& Family Hx - Medical History Psychological: No history of: Anxiety Disorders, ADHD, Behavior Problems, Bipolar Disorder, Depression, Previous Suicide Attempt, Psychiatric/Substance Abuse Tx, Schizophrenia, Violent Behavior, Psychiatric Problems Rheumatology: History of;: Rheumatoid Arthritis Musculoskeletal: No history of: Amputation - Surgical History HEENT Surgeries: Surgical HX of: Tonsilectomy & Adenoidectomy Abdominal Surgeries: Surgical HX of: Abdominal Surgery (Spleenectomy) - Family History Family History: Reports;: Family Cancer - Social History Smoking Status: Never smoker Exam Vital Signs: Vital Signs Temperature 98.1 F 01/21/17 13:59 Pulse Rate 90 01/21/17 15:30 Respiratory Rate 20 01/21/17 15:30 Blood Pressure 123/81 01/21/17 15:30 O2 Sat by Pulse Oximetry 98 01/21/17 15:30 - General General appearance: alert, in no apparent distress - Head Head exam: Present: atraumatic, normocephalic - Eye Eye exam: Present: PERRL, EOMI - ENT ENT exam: Present: mucous membranes moist. Absent: mucous membranes dry - Neck Neck exam: Absent: full ROM, tenderness - Chest Chest inspection: Absent: symmetric chest wall rise, tenderness - Respiratory Respiratory exam: Present: normal lung sounds bilaterally. Absent: wheezes - Cardiovascular Cardiovascular exam: Present: regular rate, normal rhythm. Absent: bradycardia - Abdominal Exam Abdominal exam: Present: soft, diminished bowel sounds. Absent: tenderness - Extremities Exam Extremities exam: Present: full ROM. Absent: tenderness (non-specific tenderness of wrists; ), joint swelling (non-specific wrist joint swelling) - Back Exam Back exam: Present: full ROM, tenderness - Neurological Exam Neurological exam: Present: alert, oriented X3, CN II-XII intact - Psychiatric Psychiatric exam: Present: normal affect, normal mood - Skin Skin exam: Present: warm, dry, intact. Absent: normal color Course Course Narrative: patient is not a good historian and his primary complaint today is that he is requesting Manning prescription. He says his ring sewer specialist had been prescribing it but seems to think that they would no longer will, [place] prescription monitoring program reviewed showed 90 Manning tablets filled during the first few days of September, October, November, and December, as well as 10 pills filled December 26. That means within the last 5 weeks he has had 100 Manning tablets prescribed and filled. However, during his evaluation he did note possible fever within the last couple days and so we check some labs and his white count and platelets are significantly elevated. Due to his medical history to include MSRA septicemia, asplenia, and IV drug use we discussed with hospitalist for admission and further evaluation of possible infection of unknown source and to rule out recurrent septicemia. Results - Labs CBC & BMP: 01/21/17 16:11 01/21/17 16:11 Lab Results: I have reviewed the patients labs Labs: Laboratory Tests 01/21/17 01/21/17 16:11 16:11 WBC 19.5 H RBC 3.16 L Hgb 9.1 L Hct 26.9 L MCV 85.1 L RDW 19.3 H Plt Count 1115 H* Neut % (Auto) 86.2 H Lymph % (Auto) 9.7 L Neut # (Auto) 16.8 H Sodium 136 Potassium 4.1 Chloride 103 Carbon Dioxide 29 BUN 33 H GFR Calculation 112 BUN/Creatinine Ratio 36.00 H Glucose 145 H Disposition Clinical Impression: Leukocytosis, Arthralgia of multiple joints, Immunocompromised state Case discussed with: patient Disposition: Still a Patient Condition: Stable Time of Disposition: 19:25
[2017-01-21] MEDS ORDERED: HYDROmorphone 2 MG TABLET PO PRN (20:02)
[2017-01-21] MEDS ORDERED: HYDROmorphone 2 MG/1 ML VIAL IV STA (20:03)
[2017-01-21 20:10] LABS: Apearance,Urine CLEAR (Clear); Bilirubin,Urine Negative (Negative); Blood, Urine Small mg/dL (Negative); Glucose,Urine (UA) Negative (Negative); Hyaline Casts,Urine 1 /LPF (0-3); Ketones,Urine Negative (Negative); Mucus,Urine Occasional /LPF (Occasional); Nitrite,Urine Negative (Negative); Protein,Urine Negative; RBC,Urine 7 /HPF (0-4); Urine Color Yellow (Yellow); Urine Specific Gravity 1.024 (1.001-1.035); Urine Urobilinogen < 2.0 EU/DL (0.2-1.0); WBC,Urine 2 /HPF (0-6)
[2017-01-21 20:21] LABS: Barbiturates Screen,Urine Negative (Negative); Benzodiazepines Screen,Urine Negative (Negative); Cannabinoid Screen,Urine Positive (Negative); Opiate Screen,Urine Positive (Negative); Phencyclidine Screen,Urine Negative (Negative)
[2017-01-21] MEDS: SODIUM CHLORIDE 0.9% 1,000 ML IV SCH (22:47)
[2017-01-21] MEDS ORDERED: HYDROmorphone 2 MG/1 ML VIAL IV PRN (23:20)
[2017-01-21] MEDS: HYDROmorphone 2 MG/1 ML VIAL IV PRN (23:28)
[2017-01-22] MEDS: HYDROmorphone 2 MG/1 ML VIAL IV PRN ×8 (01:57→21:45)
[2017-01-22] MEDS: VANCOMYCIN 1,000 MG VIAL IV SCH ×4 (03:07→19:42)
[2017-01-22] MEDS: SODIUM CHLORIDE 0.9% 1,000 ML IV SCH ×5 (06:53→19:46)
[2017-01-22 07:22] LABS: Eosinophils # 0.1 10*3/uL (0.0-0.87); Eosinophils % 0.5 % (0.00-10.9); Hematocrit 27.1 VOL% (42.0-52.0); Hemoglobin 8.9 GM/DL (14.0-18.0); Immature Granulocytes % 0.8 %; Lymphocytes # 6.1 10*3/uL (1.4-4.0); Lymphocytes % 25.6 % (21.2-54.2); Mean Corpuscular HGB Conc 32.8 GM/DL (32-36); Mean Corpuscular Hemoglobin 28 PG (27-34); Mean Corpuscular Volume 84.4 FL (87-102); Mean Platelet Volume 10.5 FL (9.6-12.0); Monocytes # 1.1 10*3/uL (0.11-0.8); Monocytes % 4.7 % (1.7-12.7); NRBC # 0.04 10*3/uL; Neutrophils # 16.2 10*3/uL (1.4-7.4); Neutrophils % 68.4 % (38.7-73.9); Platelet Count 979 T/CUMM (130-400); Red Blood Count 3.21 MC/CUMM (3.8-5.5); Red Cell Distribution Width 19.6 % (9.3-17.3); White Blood Count 23.7 T/CUMM (4-12)
[2017-01-22 07:47] LABS: Elliptocytes Few; Eosinophils 1 % (0-10); Giant Platelets Few; Hypochromasia 1+; Lymphocytes 20 % (20-55); Platelet Estimate Increased; Segmented Neutrophils 75 % (50-85); Target Cells Few; Total Cells Counted 100
[2017-01-22 08:00] LABS: Calcium 8.8 MG/DL (8.5-10.1); Osmolality,Calculated 263.8 MOS/KG (273-304); Potassium 4.6 MMOL/L (3.5-5.1)
--- NOTE | 2017-01-22 08:42 | Oncology Progress Note ---
Oncology Subjective PN Interval history: Patient with rheumatoid arthritis dating to 1996. Admitted with significant arthralgias. He is also reporting subjective fevers and sweats. Recent history notable for bacteremia with prolonged hospitalization. Patient states he is unable to be seen by information services consultant in [place] until March. Drug screen is positive this admission. He has used intravenous drugs in the past though he states this has been many years ago. I do not hear any definite cardiac murmurs. Joint enlargement of the right and left hand are noted and he is reporting pain in most all of his major joints. He is anemic with a low normal MCV. This is not changed significantly since 2013. I do not think a ferritin would be a reliable test at this time. Regarding his current platelet level of 900,[address] him on a low -dose aspirin daily. I feel this is a reactive process and not a primary myeloproliferative disorder. He is on vancomycin with pharmacy consult placed for what I feel will be a primary infectious etiology Exam - Constitutional Vitals: Period Temp Pulse Resp BP Sys/Maxwell Pulse Ox Last 24 Hr 98.1 F-100.3 F 80-116 20-22 115-155/67-97 95-98 Results - Labs CBC & BMP: 01/22/17 06:42 01/22/17 06:42
[2017-01-22] MEDS: MELOXICAM 7.5 MG TABLET PO SCH (09:15)
[2017-01-22] MEDS: FLUCONAZOLE 200 MG TABLET PO SCH (09:15)
[2017-01-22] MEDS: predniSONE 20 MG TABLET PO SCH (09:15)
[2017-01-22] MEDS: ASPIRIN EC 81 MG TABLET PO SCH (09:15)
[2017-01-22] MEDS: PANTOPRAZOLE 40 MG TABLET PO SCH (09:16)
--- NOTE | 2017-01-22 10:39 | Hospitalist Progress Note ---
Assessment and Plan (1) Septic arthritis of multiple joints Status: Acute Assessment and plan: left wrist and right dip of 3rd finger, Spoke with Dr. Vences and Dr. Narayanan, vancomycin IV, already growing bacteria in his blood Current Visit: Yes (2) Asplenia Status: Acute Current Visit: No (3) Severe sepsis Status: Acute Assessment and plan: Sepsis order set used. Severe sepsis began last night on admission. Continue vancomycin, repeat blood cultures, echo ordered Current Visit: No (4) History of rheumatoid arthritis Status: Acute Assessment and plan: Currently on Embrel and prednisone Current Visit: No (5) Hyponatremia Status: Acute Assessment and plan: Severe hyponatremia fluid bolus and then normal saline at 200 Current Visit: No (6) Immunocompromised state Status: Acute Assessment and plan: Patient is on Embrel last injection two weeks ago, and prednisone. Will continue a low dose of prednisone. He may need stress dose but I do not think that is necessary at this time. 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 Coa is seeing him Current Visit: Yes Hospitalist: Subjective Interval history: Patient has a history of drug abuse. Dr. Narayanan has seen him and is concerned about a septic joint. No x-ray films were ordered. I will order stat films. I have spoken personally to Dr. Vences and he will see him as soon as he can. We will make him n.p.o. until he seen by orthopedics. He is asking for more pain medicines which I believe he does need. He has tacky and diaphoretic when I saw him. Exam - Constitutional Vitals: Period Temp Pulse Resp BP Sys/Maxwell Pulse Ox Last 24 Hr 98.1 F-100.3 F 80-116 20-22 115-155/67-97 95-98 Exam: Heart Rate-[tachy] Lungs-[CTAB] GI-[+bs soft, NT] Ext-[no edema] Neuro [Motor 5/5], [alert and oriented times 3], swelling and left wrist and right third PIP psych [agitated mood and affect] General [moderate acute distress due to pain and diaphoretic ] Results - Labs CBC & BMP: 01/22/17 06:42 01/22/17 06:42 Lab Results: I have reviewed the past 24 hour labs
[2017-01-22] MEDS ORDERED: SODIUM CHLORIDE 0.9% 2,000 ML IV ONE (10:55)
--- NOTE | 2017-01-22 11:37 | Orthopedic Consult Note ---
History of Present Illness Chief complaint: Multiple joint complaints, swollen red middle finger right History of present illness: Mr. Piedra is a 46 year old male admitted to the medical service he has a history of rheumatoid arthritis taking numerous medications his history is somewhat complicated and he has been admitted several times in the past few months for bacteremia and sepsis his mother reports that he was hospitalized at [facility] for a couple of weeks on IV antibiotics. A couple of days ago he developed soft tissue swelling and redness over the dorsum of the middle finger PIP joint also had increasing amounts of pain about the left wrist but not much in the way of swelling he states this is happening intermittently and periodically through the years he did not believe his left wrist swelling is anything different than he has previously experienced. There is no history of trauma about the wrist or hand Examination confirms this soft tissue swelling and erythema consistent with a soft tissue infection over the dorsum of the right hand PIP joint middle finger he is able to actively flex and extend the wrist as well as the digits limited at the PIP joint he does not have a lot of pain with gentle passive range of motion of the PIP joint sensibility describes intact subjectively diminished distally the left wrist confirms active range of motion of about a 45 arc there is some bogginess and synovitis over the dorsum of the wrist I do not believe the wrist is septic. He tolerates gentle range of motion about both lower extremities and proximal to the elbow shoulders bilateral X-rays of the left wrist confirm intercarpal and radiocarpal changes consistent with his history of rheumatoid arthritis and do not see any significant destruction or bony erosion or acute process consistent with a chronic osteomyelitis. The right hand films confirm chronic changes consistent with his arthritis diagnosis Impression: 1)Soft tissue infection right hand middle finger PIP joint 2) dorsal swelling left wrist Plan I discussed with he and his mother the diagnosis treatment plan I believe the finger needs to be opened up and washed out. It appears to be the most obvious source for his bacteremia on this admission. With respect to the left wrist I recommend observation while under anesthesia will attempt to aspirate to confirm that there is no fluctuance or purulent material present if so then we would I&D that as well but I believe most likely it is only related to the middle finger right hand Home Medications Medication Instructions Recorded Confirmed Type Etanercept [Enbrel] 50 mg IM MOTH 11/25/16 12/03/16 History Acetaminophen Tab [Tylenol Tab] 325 mg PO Q4H PRN tablet 12/10/16 Rx Docusate Sodium Cap [Colace Cap] 100 mg PO BID PRN capsule 12/10/16 Rx HYDROcodone/ACETAMIN 5-325 [[place] 1 tablet PO Q4H PRN tablet 12/10/16 Rx 5-325] Meloxicam [Mobic] 7.5 mg PO DAILY tablet 12/10/16 Rx Nicotine 21 mg/24 Hr Patch 1 patch TRANSDERM DAILY patch 12/10/16 Rx [Nicoderm CQ 21 mg/24 hr Patch] Pantoprazole Tab [Protonix Tab] 40 mg PO DAILY tablet 12/10/16 Rx Vancomycin Inj 1,000 mg IV Q8H vial 12/10/16 Rx Zaleplon [Sonata] 5 mg PO BEDTIME PRN capsule 12/10/16 Rx clonazePAM TAB [KlonoPIN] 0.25 mg PO BID PRN tablet 12/10/16 Rx predniSONE TAB [PredniSONE] 20 mg PO DAILY tablet 12/10/16 Rx Allergies Allergy/AdvReac Type Severity Reaction Status Date / Time morphine Allergy Headache Verified 01/21/17 13:54 Medical,Surgical,& Family Hx - Medical History Cardio: History of: Hypertension Psychological: No history of: Anxiety Disorders, ADHD, Behavior Problems, Bipolar Disorder, Depression, Previous Suicide Attempt, Psychiatric/Substance Abuse Tx, Schizophrenia, Violent Behavior, Psychiatric Problems Rheumatology: History of;: Rheumatoid Arthritis Musculoskeletal: No history of: Amputation - Surgical History HEENT Surgeries: Surgical HX of: Tonsilectomy & Adenoidectomy Abdominal Surgeries: Surgical HX of: Abdominal Surgery (Spleenectomy) - Family History Family History: Reports;: Family Cancer, Family Diabetes, Family Hypertension - Social History Smoking Status: Never smoker Frequency of Alcohol Use: None Type of Drug Use: None Exam - Constitutional Vitals: Period Temp Pulse Resp BP Sys/Maxwell Pulse Ox Last 24 Hr 98.1 F-100.3 F 80-116 20-22 115-155/67-97 95-98 Results - Labs CBC & BMP: 01/22/17 06:42 01/22/17 06:42
--- NOTE | 2017-01-22 11:40 | XRay Report ---
XR chest 1V portable Indication: Shortness of breath Comparison: 26 November 2016 Findings: The heart and mediastinum are normal in size and configuration. The pulmonary vascularity is normal in caliber. No lung infiltrates, effusions, pneumothorax or other abnormality is demonstrated. Impression: Normal chest x-ray PROCEDURE INTERPRETED AT [facility] DEPARTMENT OF RADIOLOGY Final Report Signed by: Dr. Deniz Borjas
--- NOTE | 2017-01-22 11:42 | XRay Report ---
XR wrist 2V LT Indication: Pain, fever septic joint Comparison: 01 June 2013 Findings: No evidence of fracture seen. Moderate to severe degenerative changes are present in the wrist with some overlap limiting the evaluation. No soft tissue abnormality is seen. 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 PROCEDURE INTERPRETED AT [facility] DEPARTMENT OF RADIOLOGY Final Report Signed by: Dr. Deniz Borjas
--- NOTE | 2017-01-22 11:43 | XRay Report ---
Two-view right hand January 22, 2017 at 1050 hours Indication: Fever, swelling, pain and redness Comparison images not available Findings: Marked soft tissue prominence centered at the third proximal interphalangeal joint. No significant osteopenia or erosions. Loss of joint space. No periostitis. Mild degenerative changes throughout the carpal complex, first MCP joint and distal second interphalangeal joint. Impression: Prominent soft tissue swelling at the third proximal interphalangeal joint. No osseous changes to suggest septic joint and/or osteomyelitis, however, infection cannot be excluded by radiographic study PROCEDURE INTERPRETED AT [facility] DEPARTMENT OF RADIOLOGY Final Report Signed by: Ochoa Gallegos
--- NOTE | 2017-01-22 12:59 | Infectious Disease Consult ---
Assessment and Plan (1) Immunocompromised state Status: Acute Assessment and plan: Due to being on Enbrel and also with his autoimmune condition, rheumatoid arthritis. The patient has history of recent IVDU. HIV negative last admission but will repeat again in case of recent seroconversion. Current Visit: Yes (2) Leukocytosis Status: Acute Assessment and plan: Most likely due to the septicemia. Treatment as below. Current Visit: Yes (3) Bacteremia due to Staphylococcus aureus Status: Acute Assessment and plan: Unfortunately patient has had a relapse of MRSA septicemia. He had refused DEMOND during a previous admission and had been treated for little less than 4 weeks with IV antibiotics. He has past history of injection drug use but denies injection since discharge from hospital. Unfortunately his U tox once again came back positive for methamphetamines so it is quite possible he is gone back to injecting drugs. I think we need to consider infective endocarditis and treat empirically for this. Recommendations: 1. Agree with vancomycin with goal trough of 15-20 2. We need to do another echocardiogram to look for obvious vegetation on the valves; TTE on this patient agrees this time to do DEMOND 3. Monitor renal function very closely on the vancomycin 4. Repeat blood cultures again in the next 1-2 days Thank you very much for the consult. Will follow. Discussed with Dr. Marshall Current Visit: No (4) Oral candidiasis Status: Acute Assessment and plan: Extensive stomatitis related to candidiasis. His immunocompromise state with Enbrel use predisposes him to this. He was negative HIV at last admission. Fluconazole therapy instituted. Current Visit: No (5) Polysubstance abuse Status: Acute Assessment and plan: Stiff IVDU with risk for infective endocarditis. Repeat echocardiogram. Current Visit: No (6) Rheumatoid arthritis Status: Chronic Assessment and plan: Quite severe rheumatoid arthritis. 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 He took it upon himself to resume Enbrel but it might of been too soon for him to take this drug. Recommendations: consider rheumatology consult Current Visit: No (7) Septic arthritis of multiple joints Status: Acute Assessment and plan: It seems he has a septic right third PIP joint. Maybe it is MRSA and maybe this was the cause of the septicemia or maybe he seated this joint after he became bacteremic. Recommendations: Suggest orthopedic consult [patient subsequently seen by Dr. 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 Piedra is a 46 year old male who I have seen during previous admissions. He has history of IV drug abuse and we treated him for MRSA septicemia with intravenous vancomycin. His first admission ended in him leaving AMA but he came back again after over week and blood cultures were negative however we completed treatment with intravenous antibiotics for almost 4 weeks. The patient had see me in the office almost a month ago and begged to be released from the swing bed so I completed the last week of therapy with oral linezolid rather than IV vancomycin. The patient says he did well since then I would likely due to come and see me in the office on 29 January. However last week he started having pains all over his body is including his joints quite severe. He could hardly walk and was having subjective fevers and so decided he needed to come back to the hospital. Blood cultures done on admission now once again positive for MRSA. I am asked to assist with management. 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 However he had Enbrel at home and took 2 injections since being discharged. Home Medications Medication Instructions Recorded Confirmed Type Etanercept [Enbrel] 50 mg IM MOTH 11/25/16 12/03/16 History Acetaminophen Tab [Tylenol Tab] 325 mg PO Q4H PRN tablet 12/10/16 Rx Docusate Sodium Cap [Colace Cap] 100 mg PO BID PRN capsule 12/10/16 Rx HYDROcodone/ACETAMIN 5-325 [[place] 1 tablet PO Q4H PRN tablet 12/10/16 Rx 5-325] Meloxicam [Mobic] 7.5 mg PO DAILY tablet 12/10/16 Rx Nicotine 21 mg/24 Hr Patch 1 patch TRANSDERM DAILY patch 12/10/16 Rx [Nicoderm CQ 21 mg/24 hr Patch] Pantoprazole Tab [Protonix Tab] 40 mg PO DAILY tablet 12/10/16 Rx Vancomycin Inj 1,000 mg IV Q8H vial 12/10/16 Rx Zaleplon [Sonata] 5 mg PO BEDTIME PRN capsule 12/10/16 Rx clonazePAM TAB [KlonoPIN] 0.25 mg PO BID PRN tablet 12/10/16 Rx predniSONE TAB [PredniSONE] 20 mg PO DAILY tablet 12/10/16 Rx Allergies Allergy/AdvReac Type Severity Reaction Status Date / Time morphine Allergy Headache Verified 01/21/17 13:54 12 point system: reviewed and no additional remarkable complaints except as stated (Severe soreness of the mouth for several days, rest of compressive review of systems negative for falls mentioned in HPI) Medical,Surgical,& Family Hx - Medical History Cardio: History of: Hypertension Psychological: No history of: Anxiety Disorders, ADHD, Behavior Problems, Bipolar Disorder, Depression, Previous Suicide Attempt, Psychiatric/Substance Abuse Tx, Schizophrenia, Violent Behavior, Psychiatric Problems Rheumatology: History of;: Rheumatoid Arthritis Musculoskeletal: No history of: Amputation - Surgical History HEENT Surgeries: Surgical HX of: Tonsilectomy & Adenoidectomy Abdominal Surgeries: Surgical HX of: Abdominal Surgery (Spleenectomy) - Family History Family History: Reports;: Family Cancer, Family Diabetes, Family Hypertension - Social History Smoking Status: Never smoker Frequency of Alcohol Use: None Type of Drug Use: None Infectious Disease Exam H&P - Constitutional Vitals: Vital Signs Temp Pulse Resp BP Pulse Ox 100.3 F H 116 H 22 138/75 95 01/22/17 03:58 01/22/17 03:58 01/22/17 03:58 01/22/17 03:58 01/22/17 03:58 Intake and Output 01/21/17 01/22/17 01/22/17 23:59 07:59 15:59 Intake Total 300 / 300 3500 / 3500 500 / 500 Output Total 600 / 600 Balance 300 / 300 2900 / 2900 500 / 500 Intake: IV 1000 / 1000 500 / 500 Ns 1,000 ml @ 200 mls/hr 1000 / 1000 500 / 500 IV .Q5H [facility] Rx#: [id number] Oral 300 / 300 2500 / 2500 Output: Urine 600 / 600 Other: Voiding Method Urinal Urinal # Voids 1 Weight 66.678 kg Exam: General: Patient uncomfortable, in painful distress worse when he moves due to joint pains HEENT: Mucous membranes pink and moist, anicteric acyanotic, CASA, extensive irritation, inflammation of the mouth with diffuse white exudates Neck: Supple, no thyroid gland enlargement, no lymphadenopathy Respiratory system: Breath sounds vesicular, no crepitations or wheezes Cardiovascular: Normal S1 and S2, no murmurs appreciated Abdomen: Normal bowel sounds, soft nontender throughout, no organomegaly or mass Genitourinary: No suprapubic pain or bladder distention Extremities: Right wrist bandage, left wrist mildly swollen and pain there with movement, he has diffuse fluctuant swelling over the right third proximal interphalangeal joint and this is tender to touch. There is overlying erythema as well. Skin: Scattered small pustules over body Reports - Labs CBC & BMP: 01/22/17 06:42 01/22/17 06:42 Labs: Laboratory Results - last 24 hr 01/21/17 01/21/17 01/21/17 16:11 16:11 18:57 WBC 19.5 H RBC 3.16 L Hgb 9.1 L Hct 26.9 L MCV 85.1 L MCH 29 MCHC 33.8 RDW 19.3 H Plt Count 1115 H* MPV 9.6 Neut % (Auto) 86.2 H Lymph % (Auto) 9.7 L Sharkey % (Auto) 3.2 Eos % (Auto) 0.1 Baso % (Auto) 0.1 Neut # (Auto) 16.8 H Lymph # (Auto) 1.9 Sharkey # (Auto) 0.6 Eos # (Auto) 0.0 Baso # (Auto) 0.0 Total Counted Immature Gran % 0.7 Nucleated RBC % 0.2 Immature Gran # 0.13 Segmented Neutrophils Lymphocytes Monocytes Eosinophils Nucleated RBCs # 0.04 Platelet Estimate Giant Platelets Immature Plt Fraction 0.0 Hypochromasia Target Cells Elliptocytes Sodium 136 Potassium 4.1 Chloride 103 Carbon Dioxide 29 Anion Gap 8.1 BUN 33 H Creatinine 0.90 GFR Calculation 112 BUN/Creatinine Ratio 36.00 H Glucose 145 H Calculated Osmolality 281.0 Lactic Acid 1.4 Calcium 9.4 Random Cortisol Urine Color Urine Appearance Urine pH Ur Specific [place] Urine Protein Urine Glucose (UA) Urine Ketones Urine Blood Urine Nitrate Urine Bilirubin Urine Urobilinogen Urine Leukocytes Urine RBC Urine WBC Hyaline Casts Urine Mucus Ur Culture Indicated? Urine Opiates Screen Ur Barbiturates Screen Ur Phencyclidine Scrn U Amphetamine/Methamph U Benzodiazepines Scrn U Cocaine Metab Screen U Cannabinoids Screen 01/21/17 01/21/17 01/22/17 18:57 18:57 06:42 WBC 23.7 H RBC 3.21 L Hgb 8.9 L Hct 27.1 L MCV 84.4 L MCH 28 MCHC 32.8 RDW 19.6 H Plt Count 979 H MPV 10.5 Neut % (Auto) 68.4 Lymph % (Auto) 25.6 Sharkey % (Auto) 4.7 Eos % (Auto) 0.5 Baso % (Auto) 0.0 Neut # (Auto) 16.2 H Lymph # (Auto) 6.1 H Sharkey # (Auto) 1.1 H Eos # (Auto) 0.1 Baso # (Auto) 0.0 Total Counted 100 Immature Gran % 0.8 Nucleated RBC % 0.2 Immature Gran # 0.20 Segmented Neutrophils 75 Lymphocytes 20 Monocytes 4 Eosinophils 1 Nucleated RBCs # 0.04 Platelet Estimate Increased Giant Platelets Few Immature Plt Fraction 0.0 Hypochromasia 1+ Target Cells Few Elliptocytes Few Sodium Potassium Chloride Carbon Dioxide Anion Gap BUN Creatinine GFR Calculation BUN/Creatinine Ratio Glucose Calculated Osmolality Lactic Acid Calcium Random Cortisol Urine Color Yellow Urine Appearance Clear Urine pH 6.0 Ur Specific [place] 1.024 Urine Protein Negative Urine Glucose (UA) Negative Urine Ketones Negative Urine Blood Small Urine Nitrate Negative Urine Bilirubin Negative Urine Urobilinogen < 2.0 H Urine Leukocytes Negative Urine RBC 7 Urine WBC 2 Hyaline Casts 1 Urine Mucus Occasional Ur Culture Indicated? Not indicated Urine Opiates Screen Positive H Ur Barbiturates Screen Negative Ur Phencyclidine Scrn Negative U Amphetamine/Methamph Positive H U Benzodiazepines Scrn Negative U Cocaine Metab Screen Negative U Cannabinoids Screen Positive H 01/22/17 01/22/17 01/22/17 06:42 11:17 11:17 WBC RBC Hgb Hct MCV MCH MCHC RDW Plt Count MPV Neut % (Auto) Lymph % (Auto) Sharkey % (Auto) Eos % (Auto) Baso % (Auto) Neut # (Auto) Lymph # (Auto) Sharkey # (Auto) Eos # (Auto) Baso # (Auto) Total Counted Immature Gran % Nucleated RBC % Immature Gran # Segmented Neutrophils Lymphocytes Monocytes Eosinophils Nucleated RBCs # Platelet Estimate Giant Platelets Immature Plt Fraction Hypochromasia Target Cells Elliptocytes Sodium 130 L Potassium 4.6 Chloride 97 L Carbon Dioxide 27 Anion Gap 10.6 BUN 24 H Creatinine 0.90 GFR Calculation 108 BUN/Creatinine Ratio 26.00 H Glucose 105 Calculated Osmolality 263.8 L Lactic Acid 1.4 Calcium 8.8 Random Cortisol 27.2 Urine Color Urine Appearance Urine pH Ur Specific [place] Urine Protein Urine Glucose (UA) Urine Ketones Urine Blood Urine Nitrate Urine Bilirubin Urine Urobilinogen Urine Leukocytes Urine RBC Urine WBC Hyaline Casts Urine Mucus Ur Culture Indicated? Urine Opiates Screen Ur Barbiturates Screen Ur Phencyclidine Scrn U Amphetamine/Methamph U Benzodiazepines Scrn U Cocaine Metab Screen U Cannabinoids Screen - Reports Microbiology: Microbiology 01/22/17 Unknown MRSA (PCR) - Final Blood Mrsa Positive Staph aureus Positive 01/21/17 16:11 Blood Culture - Preliminary Blood Gram Positive Cocci - Diagnostic Findings Procedure: Chest x-ray: image reviewed by me, report reviewed by me (No acute pathology)
[2017-01-22] MEDS ORDERED: HYDROCORTISONE 100 MG VIAL ONE ×2 (16:43→17:41)
[2017-01-22] MEDS ORDERED: ONDANSETRON 4 MG/2 ML VIAL ONE ×2 (16:43→17:57)
[2017-01-22] MEDS ORDERED: LIDOCAINE 1% 5 ML VIAL ONE (16:43)
[2017-01-22] MEDS ORDERED: PROPOFOL 200 MG/20 ML VIAL IV ONE (16:43)
--- NOTE | 2017-01-22 17:07 | ECHO Report ---
Tadeo Con 01/22/2017 Exam Date: 12:32 Referring Physician: Larisa Quach Technologist: JAMA Age: 46 Ht (in): 71 Wt (lb): 147 MExam [facility] [place] Gender: Echo [id number]: reactive thrombocytosis, bacteremia,Indications:umatoid arthritis, leukocytosis, septic arthritis of multiple joints BP: 138 / 75 HR: 117 tachycardiaRhythm: GoodTechnical Quality: IMPRESSIONS Normal left ventricular cavity size. Mild - moderate concentric left ventricular hypertrophy. Left ventricular ejection fraction is estimated at 45 %. Normal right ventricular size. Normal right atrial size. Normal left atrial size. Mildly thickened mitral valve with mild mitral regurgitation. The aortic valve is trileaflet and has normal motion. Morphologically normal tricuspid valve. Trace tricuspid valve regurgitation. Tricuspid regurgitation velocities suggest a PAP of 37.9 mmHg + RAP. Morphologically normal pulmonic valve. No pericardial effusion. Normal size aortic root and proximal ascending aorta. MEASUREMENTS (Male / Female) Normal Values 2D ECHO LV Diastolic Diameter PLAX 4.6 cm 4.2 - 5.9 / 3.9 - 5.3 cm LV Systolic Diameter PLAX 3.9 cm LV Fractional Shortening PLAX 15.2 % IVS Diastolic Thickness 1.5 cm 0.6 - 1.0 / 0.6 - 0.9 cm LVPW Diastolic Thickness 1.5 cm 0.6 - 1.0 / 0.6 - 0.9 cm Aortic Root Diameter 3.0 cm LA Systolic Diameter LX 3.5 cm 3.0 - 4.0 / 2.7 - 3.8 cm DOPPLER TR Peak Velocity 308.0 cm/s TR Peak Gradient 37.9 mmHg FINDINGS Left Ventricle Normal left ventricular cavity size. Mild - moderate concentric left ventricular hypertrophy.left ventricular ejection fraction is estimated at 45 %. Right Ventricle Normal right ventricular size. Right Atrium Normal right atrial size. Left Atrium Normal left atrial size. Mitral Valve Mildly thickened mitral valve with mild mitral regurgitation. Aortic Valve The aortic valve is trileaflet and has normal motion. Tricuspid Valve Morphologically normal tricuspid valve. Trace tricuspid valve regurgitation. Tricuspid regurgitation velocities suggest a PAP of 37.9 mmHg + RAP. Pulmonic Valve Morphologically normal pulmonic valve. Pericardium No pericardial effusion. Aorta Normal size aortic root and proximal ascending aorta. Be Beltre MD (Electronically Signed) 22 January 2017 Final Date: 17:06
--- NOTE | 2017-01-22 17:38 | Anesthesia Post-Op ---
Anesthesia Post OP - Post Ansesthetic Evaluation Patient seen in post op: Yes Resp: within normal limits CV: within normal limits Mental: within normal limits Temp: within normal limits [id number]: within normal limits Nausea and Vomiting: within normal limits Pain: within normal limits
[2017-01-22] MEDS ORDERED: SEVOFLURANE 1 UNIT/15 MINUTE INH ONE (17:41)
[2017-01-22] MEDS ORDERED: MIDAZOLAM 2 MG/2 ML VIAL ONE (17:41)
[2017-01-22] MEDS ORDERED: fentaNYL 100 MCG/2 ML VIAL ONE (17:41)
[2017-01-22] MEDS ORDERED: HYDROmorphone 2 MG/1 ML VIAL ONE (17:57)
--- NOTE | 2017-01-22 18:50 | Rheumatology Consultation ---
Assessment and Plan (1) left wrist acute arthritis Status: Acute Assessment and plan: Left wrist acute arthritis suspected septic arthritis and less likely rheumatoid arthritis or crystalline disease like gout or pseudogout Current Visit: Yes (2) right 2nd PIP arthritis Status: Acute Assessment and plan: Right hand second PIP acute arthritis with effusion suspected to septic arthritis and less likely gout, pseudogout or rheumatoid arthritis Current Visit: Yes (3) Severe sepsis Status: Acute Current Visit: No (4) History of rheumatoid arthritis Status: Acute Assessment and plan: He has a history of rheumatoid arthritis managed by a cook sauce. He was on Enbrel which improved his rheumatoid arthritis symptoms. He stopped taking Enbrel for more than 4 weeks due to sepsis and MRSA infection, which required IV antibiotic treatment. He also takes oral prednisone for rheumatoid arthritis. His rheumatoid arthritis is under control at this point and I recommend to HOLD Enbrel given his current acute symptoms related to septic arthritis with blood cultures positive for MRSA which is absolute contraindication for biologic use especially in patient who is hospitalized and receiving IV antibiotics. For rheumatoid arthritis I recommend and preferred to continue oral prednisone at dose of 20 mg daily until he complete systemic antibiotics and his infection is cleared by infectious disease physician. No synthetic or Biologic DMARD's are indicated at this point given his septic arthritis. Current Visit: No (5) Sepsis Status: Acute Current Visit: No (6) Septic arthritis of multiple joints Status: Acute Assessment and plan: Mr. Nagel is a 46-year-old male with history of rheumatoid arthritis is hospitalized with illegal arthritis which is a cute involving left wrist and right hand middle finger proximal and interphalangeal joint along with signs and symptoms of sepsis with suspected septic arthritis. He has both blood cultures positive for staph aureus which are not suspected to possible infective endocarditis. Although patient denies using IV drug abuse but his urine drug screen is positive for multiple substance abuse. Patient need further evaluation and workup to rule out infective endocarditis, underlying immunosuppressive condition like HIV and common variable immune deficiency. I agree with the plan to continue IV antibiotics at present. Patient is going for surgical evaluation of right hand proximal interphalangeal joint arthritis with effusion. I recommend to start or continue oral prednisone of 20 mg daily for management of rheumatoid arthritis and continue systemic antibiotics to treat sepsis. I defer use of any synthetic or biologic DMARD's to treat his rheumatoid arthritis at present given his condition as septic arthritis. I would prefer to start DMARD's once he complete course of systemic antibiotics and his infection is cleared based on blood cultures and evaluation by infectious disease physician. He has localized neck pain C5 to C7 cervical spine level which is concerning for any septic emboli involving C-spine, although he has no neurologic symptoms at this point so far. I would recommend C-spine MRI to evaluate for localized C-spine pain symptoms Current Visit: Yes History of Present Illness - Data of Consult Consult date: 01/22/17 - Consult Narrative Reason for consult: h/o Rheumatoid arthritis admitted with Septic arthritis History of present illness: Mr. Piedra is a 46 year old male is admitted with acute onset pain in the left wrist and right hand third proximal interphalangeal joint for last more than a week. According to patient he has history of rheumatoid arthritis for last few years which is managed by cook sauce. He was taking Enbrel which controlled her rheumatoid arthritis pretty well. He was hospitalized more than 2 weeks ago for sepsis and was treated with IV antibiotics is been more than 4 weeks he stopped using his Enbrel due to active infectious process. His infection was resolved but he did not start Enbrel yet. He was in his usual state of health until 3-4 weeks ago when he had episode of joint pain involving left wrist and right hand small joints which she suspected was related to rheumatoid arthritis and he started using Enbrel which did not improve his joint pain symptoms. He also noticed low-grade fever initially and then noticed fever spikes associated with chills and sweats and came to ER where he was found out with sepsis and was hospitalized for further evaluation and management. Initial blood workup was done including blood cultures and he was started on IV antibiotics. Rheumatology service was consulted today for evaluation and medical management of rheumatoid arthritis. Infectious disease physician Dr. Narayanan is managing for septic arthritis along with orthopedic surgeon. Transthoracic echo done today for suspected infective endocarditis. Both blood cultures are positive for staph aureus. Patient denies other joint pains, swelling, morning stiffness, cough sore throat, and history of IV drug abuse, night sweats, weight loss, diarrhea or blood in stool. He his left wrist pain, moderate intensity, worse with movement, improved with inactivity. He also noticed right hand middle finger proximal interphalangeal joint pain with swelling, erythema, warmth joint and associated with limited range of motion. He denies history of incarceration or prior history of sexually transmitted disease. He also complains of localized pain at the base of neck above the scapula for last more than a week which is getting worse and affects his sleep. He denies weakness in his hands or legs, numbness or tingling sensation in hands or feet CC: Angelique Marshall MD - Home Medications and Allergies Home Medications: Home Medications Medication Instructions Recorded Confirmed Type Etanercept [Enbrel] 50 mg IM MOTH 11/25/16 12/03/16 History Acetaminophen Tab [Tylenol Tab] 325 mg PO Q4H PRN tablet 12/10/16 Rx Docusate Sodium Cap [Colace Cap] 100 mg PO BID PRN capsule 12/10/16 Rx HYDROcodone/ACETAMIN 5-325 [[place] 1 tablet PO Q4H PRN tablet 12/10/16 Rx 5-325] Meloxicam [Mobic] 7.5 mg PO DAILY tablet 12/10/16 Rx Nicotine 21 mg/24 Hr Patch 1 patch TRANSDERM DAILY patch 12/10/16 Rx [Nicoderm CQ 21 mg/24 hr Patch] Pantoprazole Tab [Protonix Tab] 40 mg PO DAILY tablet 12/10/16 Rx Vancomycin Inj 1,000 mg IV Q8H vial 12/10/16 Rx Zaleplon [Sonata] 5 mg PO BEDTIME PRN capsule 12/10/16 Rx clonazePAM TAB [KlonoPIN] 0.25 mg PO BID PRN tablet 12/10/16 Rx predniSONE TAB [PredniSONE] 20 mg PO DAILY tablet 12/10/16 Rx Allergies/Adverse Reactions: Allergies Allergy/AdvReac Type Severity Reaction Status Date / Time morphine Allergy Headache Verified 01/21/17 13:54 - Constitutional Constitutional: Present: chills, fever(s), headache(s). Absent: anorexia, fatigue, lethargy, malaise, weight loss - EENT Eyes: Absent: blurry vision, diplopia, loss of vision Ears: Absent: decreased hearing, ear discharge, ear pain Nose, mouth and throat: Present: neck pain. Absent: hoarseness, lip swelling, nasal congestion, sinus pressure, sore throat, throat swelling - Cardiovascular Cardiovascular: Absent: chest pain at rest, dyspnea on exertion, radiating jaw, neck or arm pain, lightheadedness - Respiratory Respiratory: Absent: cough, dyspnea, dyspnea on exertion, wheezing - Gastrointestinal Gastrointestinal: Absent: abdominal pain, diarrhea, dyspepsia - Genitourinary Genitourinary: Absent: dysuria, flank pain - Musculoskeletal Musculoskeletal: Present: arthralgias, back pain, joint swelling. Absent: muscle weakness, myalgias - Neurological Neurological: Absent: dizziness, focal weakness, numbness, paresthesias, radicular pain - Psychiatric Psychiatric: Absent: anxiety, depression - Endocrine Endocrine: Absent: cold intolerance, polydipsia - Hematologic/Lymphatic Hematologic/Lymphatic: Absent: easy bruising, lymphadenopathy Medical,Surgical,& Family Hx - Medical History Cardio: History of: Hypertension Psychological: No history of: Anxiety Disorders, ADHD, Behavior Problems, Bipolar Disorder, Depression, Previous Suicide Attempt, Psychiatric/Substance Abuse Tx, Schizophrenia, Violent Behavior, Psychiatric Problems Rheumatology: History of;: Rheumatoid Arthritis Musculoskeletal: No history of: Amputation - Surgical History HEENT Surgeries: Surgical HX of: Tonsilectomy & Adenoidectomy Abdominal Surgeries: Surgical HX of: Abdominal Surgery (Spleenectomy) - Family History Family History: Reports;: Family Cancer, Family Diabetes, Family Hypertension - Social History Smoking Status: Never smoker Frequency of Alcohol Use: None Type of Drug Use: None Exam Rheumatology - Constitutional Vitals: Vital Signs Temp Pulse Pulse Resp BP Pulse Ox Pulse Ox 01/22/17 18:17 97.6 F 98 H 18 153/86 96 01/22/17 18:10 97.3 F L 100 H 15 158/94 100 01/22/17 18:00 99 H 15 158/95 100 01/22/17 17:51 97 H 14 152/102 100 01/22/17 17:42 97 H 16 161/100 100 01/22/17 17:37 101 H 16 162/104 100 01/22/17 17:32 97.3 F L 102 H 22 136/89 99 01/22/17 15:10 98.8 F 96 H 16 139/81 98 01/22/17 12:00 99.0 F 104 H 18 143/82 95 01/22/17 08:00 96.8 F L 84 20 140/67 95 01/22/17 03:58 100.3 F H 116 H 22 138/75 95 01/21/17 23:57 98.3 F 97 H 22 155/81 96 01/21/17 21:26 99.5 F 91 H 20 152/97 97 01/21/17 19:30 84 20 136/82 98 General appearance: no acute distress - Head Head exam: Present: normal inspection - Eye Eye exam: Present: EOMI. Absent: conjunctival injection Pupils: Present: CASA - ENT ENT exam: Present: normal exam, normal external ear exam, normal oropharynx - Neck Neck exam: Present: normal inspection. Absent: lymphadenopathy, thyromegaly - Respiratory Respiratory exam: Present: clear to auscultation bilaterally. Absent: rales, wheezes - Cardiovascular Cardiovascular exam: Present: regular rate and rhythm - GI/Abdominal GI/Abdominal exam: Present: normal bowel sounds. Absent: ascites, organomegaly , tenderness, rebound - Extremities Exam Extremities exam: Present: normal inspection, full ROM, other - Back Exam Back exam: Present: normal inspection - Neurological Exam Neurological exam: Present: alert, oriented X3, CN II-XII intact, motor sensory deficit, reflexes normal - Skin Skin exam: Present: normal color - Lymphatic Lymphatic: Absent: aricular lymphadenopathy, axillary lymphadenopathy, inguinal lymphadenopathy, supraclavicular lymphadenopathy Results - Labs CBC & BMP: 01/22/17 06:42 01/22/17 06:42
--- NOTE | 2017-01-22 19:17 | Operative Note ---
DATE: 01/22/2017 PREOPERATIVE DIAGNOSES: 1. SOFT TISSUE INFECTION PIP JOINT, RIGHT MIDDLE FINGER. 2. RULE OUT INFECTION, LEFT WRIST. POSTOPERATIVE DIAGNOSES: SAME. OPERATIVE PROCEDURE: 2. Aspiration left wrist. SURGEON: Shankar Vences Jr., MD ANESTHESIA: General. INDICATIONS: A 46-year-old white male with chronic infection involving the right finger. He has bee n growing up Staph of bacteremia for sometime. He is on immunosuppressive medications due to his rhe umatoid arthritis. I was asked to evaluate regarding septic process on both upper extremities earlie r today. I have discussed with him preoperatively any deformity of washout and debride the middle fi nger for it looks the most infected. We would also aspirate the left wrist although it looks primari ly to be involved with his baseline rheumatologic disease. OPERATIVE PROCEDURE: The patient was taken to the operating room under general anesthetic, under st erile prep, a small syringe and a #18 gauze needle were inserted in the dorsum of the left wrist. I was unable to obtain any serous or seropurulent material and felt that there was no active infectious process of the left wrist. On the right upper extremity, the hand was prepped and draped in a usual manner and a dorsal incision was made overlying the soft tissue mass and swelling of the PIP joint. There was significant amount of chronically inflamed infectious soft tissue. The abscess had eroded through extensor bender in to the PIP joint. This was cleaned up using combination sharp dissection a nd rongeur. The PIP joint and soft tissue or irrigated with bulb syringe, normal saline and then diana pproximated loosely with interrupted nylon suture. The wound itself was intact with gauze. Sterile dressing applied, tourniquet deflated to 20 minutes and taken to recovery room in a stable condition.
[2017-01-23] MEDS: HYDROmorphone 2 MG/1 ML VIAL IV PRN ×10 (00:26→22:32)
[2017-01-23] MEDS: SODIUM CHLORIDE 0.9% 1,000 ML IV SCH ×4 (00:31→20:44)
[2017-01-23] MEDS: VANCOMYCIN 1,000 MG VIAL IV SCH (02:29)
[2017-01-23 02:45] LABS: Basophils % 0.1 % (0.0-0.8); Eosinophils % 0.1 % (0.00-10.9); Hematocrit 24.5 VOL% (42.0-52.0); Hemoglobin 8.3 GM/DL (14.0-18.0); Immature Granulocytes % 0.6 %; Immature Granulocytes Absolute 0.11 #; Lymphocytes # 3.9 10*3/uL (1.4-4.0); Lymphocytes % 21.5 % (21.2-54.2); Mean Corpuscular HGB Conc 33.9 GM/DL (32-36); Mean Corpuscular Hemoglobin 29 PG (27-34); Mean Corpuscular Volume 84.5 FL (87-102); Mean Platelet Volume 9.8 FL (9.6-12.0); Monocytes # 0.8 10*3/uL (0.11-0.8); Monocytes % 4.7 % (1.7-12.7); NRBC # 0.02 10*3/uL; Neutrophils # 13.1 10*3/uL (1.4-7.4); Red Cell Distribution Width 19.1 % (9.3-17.3); White Blood Count 17.9 T/CUMM (4-12)
[2017-01-23 02:51] LABS: Platelet Count 1026 T/CUMM (130-400)
[2017-01-23 03:03] LABS: Calcium 7.8 MG/DL (8.5-10.1); Potassium 4.2 MMOL/L (3.5-5.1)
[2017-01-23 05:36] LABS: HIV Antigen/Antibody Result Nonreactive (Nonreactive)
[2017-01-23] MEDS: ASPIRIN EC 81 MG TABLET PO SCH (08:36)
[2017-01-23] MEDS: MELOXICAM 7.5 MG TABLET PO SCH (08:37)
[2017-01-23] MEDS: predniSONE 20 MG TABLET PO SCH (08:37)
[2017-01-23] MEDS: FLUCONAZOLE 200 MG TABLET PO SCH (08:37)
[2017-01-23] MEDS: PANTOPRAZOLE 40 MG TABLET PO SCH (08:37)
--- NOTE | 2017-01-23 10:32 | Hospitalist Progress Note ---
Assessment and Plan (1) Septic arthritis of multiple joints Status: Acute Assessment and plan: s/p left wrist aspiration, s/p right pip joint cleaned out. Cont vanco Current Visit: Yes (2) Asplenia Status: Acute Current Visit: No (3) Severe sepsis Status: Acute Assessment and plan: Continue vancomycin, repeat blood cultures positive for gram-positive cocci, echo showed an EF of 45% and PA P pressures of 38 Current Visit: No (4) History of rheumatoid arthritis Status: Acute Assessment and plan: Hold Enbrel due to infection but continue p.o. steroids Current Visit: No (5) Hyponatremia Status: Acute Assessment and plan: Severe hyponatremia resolved decrease normal saline down to 100 ML's per hour Current Visit: No (6) Immunocompromised state Status: Acute Assessment and plan: Hold the Enbrel Current Visit: Yes (7) Substance use disorder Status: Acute Assessment and plan: Drug screen positive for marijuana, methamphetamines and opiates negative for HIV Current Visit: No (8) Bacteremia Status: Acute Assessment and plan: Blood cultures 2 positive for gram-positive cocci. Abscess and tissue cultures positive for gram-positive cocci, I ordered repeat blood cultures from 01/22/2017 which are pending Current Visit: Yes (9) Reactive thrombocytosis Status: Acute Assessment and plan: Dr. Cao following Current Visit: Yes Hospitalist: Subjective Interval history: Thank you very much for everybody's assistance in seeing this patient. Patient is much more comfortably today his left wrist hurts less and his finger is improving. Dr. Vences took him to the OR and aspirated his wrist which is growing gram-positive cocci consistent with MRSA. His finger was also opened up and washed out. Sensitivity should be available soon. Pain is much better controlled today on the Dilaudid Exam - Constitutional Vitals: Period Temp Pulse Resp BP Sys/Maxwell Pulse Ox Last 24 Hr 97.3 F-99.0 F 89-111 14-22 109-162/61-104 95-100 Exam: Heart Rate-[regular rate and rhythm] Lungs-[CTAB] GI-[+bs soft, NT] Ext-[no edema] Neuro [Motor 5/5], [alert and oriented times 3], swelling and left wrist better and right third PIP wrapped psych [Pleasant mood and affect] General [no acute distress Results - Labs CBC & BMP: 01/23/17 02:20 01/23/17 02:20 Lab Results: I have reviewed the past 24 hour labs Labs: blood cultures times 2, and cultures from his finger are growing gram-positive cocci. 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
[2017-01-23] MEDS: VANCOMYCIN INJ 1,250 MG in SODIUM CHLORIDE 0.9% 250 ML IV SCH ×2 (10:43→18:29)
--- NOTE | 2017-01-23 11:30 | Orthopedic Progress Note ---
Orthopedics - Subjective Interval history: Dressing dry no complaints left wrist is already feeling better. Discussed with wound care will start dressing changes tomorrow and instructed Exam - Constitutional Vitals: Period Temp Pulse Resp BP Sys/Maxwell Pulse Ox Last 24 Hr 97.3 F-99.0 F 89-111 14-22 109-162/61-104 95-100 Results - Labs CBC & BMP: 01/23/17 02:20 01/23/17 02:20
--- NOTE | 2017-01-23 12:40 | Infectious Disease Progress ---
Assessment and Plan (1) Immunocompromised state Status: Acute Assessment and plan: Due to being on Enbrel and also with his autoimmune condition, rheumatoid arthritis. The patient has history of recent IVDU. HIV done again on this admission fortunately is negative. Current Visit: Yes (2) Leukocytosis Status: Acute Assessment and plan: Most likely due to the septicemia. Treatment as below. Current Visit: Yes (3) Bacteremia due to Staphylococcus aureus Status: Acute Assessment and plan: Unfortunately patient has had a relapse of MRSA septicemia. This is a complicated infection, now associated with septic arthritis to right third finger PIP. TTE negative for endocarditis. Patient refused DEMOND in the past. Recommendations: 1. Continue vancomycin with goal trough of 15-20 2. Repeat blood cultures tomorrow 3. Monitor renal function very closely on the vancomycin Current Visit: No (4) Oral candidiasis Status: Acute Assessment and plan: Extensive stomatitis related to candidiasis. Improved today. Continue fluconazole. Current Visit: No (5) Polysubstance abuse Status: Acute Assessment and plan: History of IVDU with risk for infective endocarditis. No endocarditis on TTE per patient will be treated with antibiotics for 6 weeks regardless. Current Visit: No (6) Rheumatoid arthritis Status: Chronic Assessment and plan: Quite severe rheumatoid arthritis. Seen by a lvn and is to remain off all immunosuppressive medication except for prednisone 20 g daily, to be clear the infection. Appreciate input by rheumatology. Current Visit: No (7) Septic arthritis of multiple joints Status: Acute Assessment and plan: Septic right third PIP joint. It does not seem as if any of the other joints of septic; joint pains related to rheumatoid arthritis. Recommendations: Vancomycin therapy for 6 weeks from date of negative blood cultures Current Visit: Yes Infectious Disease - PN: Subj Interval history: Patient admits he is starting to feel a little better today, less achy in general. He had surgery yesterday to the right third finger with infected material removed. Left wrist aspiration was done but no fluid obtained states that he does not have left wrist septic arthritis. Infectious Disease Exam (PN) - Constitutional Vitals: Temp Pulse Resp BP Pulse Ox 97.6 F 93 H 20 134/75 99 01/23/17 07:50 01/23/17 07:50 01/23/17 07:50 01/23/17 07:50 01/23/17 07:50 General appearance: no acute distress Exam: General appearance: no acute distress, less ill looking than yesterday - Eye Eye exam: Present: EOMI. no icterus Pupils: Present: CASA - ENT ENT exam: Still with diffuse erythema of the oral mucosa but whitish exudates almost all resolved - Respiratory Respiratory exam: vesicular BS, no crepitations or wheezes - Cardiovascular Cardiovascular exam: regular rate and rhythm, no murmurs - GI/Abdominal GI/Abdominal exam: normal bowel sounds, soft, non-tender, no organomegaly or mass - Extremities Exam Extremities exam: no edema, swelling to her left wrist which is mild, less swollen right wrist, right third finger bandaged - Skin Skin exam: no rash Results - Labs CBC & BMP: 01/23/17 02:20 01/23/17 02:20 Lab Results: I have reviewed the past 24 hour labs (All blood cultures still positive, tissue culture from right third finger positive for gram-positive cocci)
[2017-01-23] MEDS: NYSTATIN 500,000 UNIT/5 ML UDCUP SWISH/SWAL SCH ×3 (14:17→20:38)
[2017-01-24] MEDS: HYDROmorphone 2 MG/1 ML VIAL IV PRN ×9 (02:06→23:56)
[2017-01-24] MEDS: VANCOMYCIN INJ 1,250 MG in SODIUM CHLORIDE 0.9% 250 ML IV SCH ×2 (02:10→10:17)
[2017-01-24 06:38] LABS: Basophils % 0.1 % (0.0-0.8); Eosinophils # 0.3 10*3/uL (0.0-0.87); Eosinophils % 1.6 % (0.00-10.9); Hematocrit 23.9 VOL% (42.0-52.0); Hemoglobin 7.9 GM/DL (14.0-18.0); Immature Granulocytes % 0.6 %; Lymphocytes # 5.4 10*3/uL (1.4-4.0); Lymphocytes % 33.7 % (21.2-54.2); Mean Corpuscular HGB Conc 33.1 GM/DL (32-36); Mean Corpuscular Hemoglobin 28 PG (27-34); Mean Corpuscular Volume 85.4 FL (87-102); Monocytes % 6.3 % (1.7-12.7); NRBC # 0.04 10*3/uL; Neutrophils # 9.2 10*3/uL (1.4-7.4); Neutrophils % 57.7 % (38.7-73.9); White Blood Count 15.9 T/CUMM (4-12)
[2017-01-24 06:53] LABS: Platelet Count 1056 T/CUMM (130-400)
[2017-01-24 07:09] LABS: Calcium 8.4 MG/DL (8.5-10.1); Osmolality,Calculated 274.8 MOS/KG (273-304); Potassium 4.3 MMOL/L (3.5-5.1)
[2017-01-24] MEDS: ASPIRIN EC 81 MG TABLET PO SCH (09:04)
[2017-01-24] MEDS: NYSTATIN 500,000 UNIT/5 ML UDCUP SWISH/SWAL SCH ×4 (09:04→21:30)
[2017-01-24] MEDS: FLUCONAZOLE 200 MG TABLET PO SCH (09:04)
[2017-01-24] MEDS: MELOXICAM 7.5 MG TABLET PO SCH (09:04)
[2017-01-24] MEDS: PANTOPRAZOLE 40 MG TABLET PO SCH (09:04)
[2017-01-24] MEDS: predniSONE 20 MG TABLET PO SCH (09:04)
[2017-01-24] MEDS: SODIUM CHLORIDE 0.9% 1,000 ML IV SCH (09:58)
[2017-01-24] MEDS ORDERED: SODIUM CHLORIDE 0.9% 250 ML IV PRN (10:38)
--- NOTE | 2017-01-24 10:44 | Hospitalist Progress Note ---
Assessment and Plan (1) Septic arthritis of multiple joints Status: Acute Assessment and plan: s/p left wrist aspiration, s/p right pip joint debridement, Cont vanco, repeat blood cultures Current Visit: Yes (2) Asplenia Status: Acute Current Visit: No (3) Severe sepsis Status: Acute Assessment and plan: Continue vancomycin, repeat blood cultures pending Current Visit: No (4) History of rheumatoid arthritis Status: Acute Assessment and plan: Hold Enbrel due to infection but continue p.o. steroids Current Visit: No (5) Hyponatremia Status: Acute Assessment and plan: Resolved Current Visit: No (6) Immunocompromised state Status: Acute Assessment and plan: Hold the Enbrel Current Visit: Yes (7) Substance use disorder Status: Acute Assessment and plan: Drug screen positive for marijuana, methamphetamines and opiates negative for HIV Current Visit: No (8) Bacteremia Status: Acute Assessment and plan: Repeat blood cultures today continue Vanco Current Visit: Yes (9) Reactive thrombocytosis Status: Acute Assessment and plan: Stable Current Visit: Yes Hospitalist: Subjective Interval history: Patient still having breakthrough pain between his Dilaudid shots. Patient's white count is improved today. He still looks better today. We need to get him up and moving around. Exam - Constitutional Vitals: Period Temp Pulse Resp BP Sys/Maxwell Pulse Ox Last 24 Hr 96.8 F-99.0 F 82-108 16-20 146-170/84-104 96-99 Exam: Heart Rate-[regular rate and rhythm] Lungs-[CTAB] GI-[+bs soft, NT] Ext-[no edema] Neuro [Motor 5/5], [alert and oriented times 3], swelling and left wrist better and right third PIP wrapped psych [Pleasant mood and affect] General [no acute distress Results - Labs CBC & BMP: 01/24/17 06:14 01/24/17 06:15 Lab Results: I have reviewed the past 24 hour labs Labs: Repeat blood cultures pending
[2017-01-24] MEDS: VANCOMYCIN INJ 1,000 MG in SODIUM CHLORIDE 0.9% 250 ML IV SCH ×2 (12:06→21:30)
[2017-01-24] MEDS: oxyCODONE/ACETAMINOPHEN 5-325 MG TABLET PO PRN ×2 (12:53→16:52)
--- NOTE | 2017-01-24 16:18 | Infectious Disease Progress ---
Assessment and Plan (1) Immunocompromised state Status: Acute Assessment and plan: Due to being on Enbrel and also with his autoimmune condition, rheumatoid arthritis. The patient has history of recent IVDU. HIV done again on this admission fortunately is negative. Current Visit: Yes (2) Leukocytosis Status: Acute Assessment and plan: Most likely due to the septicemia. It is improving. Continue treatment as below. Current Visit: Yes (3) Bacteremia due to Staphylococcus aureus Status: Acute Assessment and plan: Unfortunately patient has had a relapse of MRSA septicemia. This is a complicated infection, now associated with septic arthritis to right third finger PIP. TTE negative for endocarditis. Patient refused DEMOND in the past. Recommendations: 1. Continue vancomycin with goal trough of 15-20 2. Repeat blood cultures today 3. Continue to monitor renal function very closely on the vancomycin Current Visit: No (4) Oral candidiasis Status: Acute Assessment and plan: Extensive stomatitis related to candidiasis. Much improved since admission. Continue fluconazole. Current Visit: No (5) Polysubstance abuse Status: Acute Assessment and plan: History of IVDU with risk for infective endocarditis. No endocarditis on TTE per patient will be treated with antibiotics for 6 weeks regardless. Current Visit: No (6) Rheumatoid arthritis Status: Chronic Assessment and plan: Quite severe rheumatoid arthritis. 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 Appreciate input by rheumatology. Current Visit: No (7) Septic arthritis of multiple joints Status: Acute Assessment and plan: Septic right third PIP joint. It does not seem as if any of the other joints of septic; joint pains related to rheumatoid arthritis. Recommendations: Vancomycin therapy for 6 weeks from date of negative blood cultures Current Visit: Yes Infectious Disease - PN: Subj Interval history: Patient had any improvement since admission. No fever for over 48 hours. Main complaint is pain to right third finger especially when they did the dressing today. Tolerating antibiotic without nausea vomiting or diarrhea. Infectious Disease Exam (PN) - Constitutional Vitals: Temp Pulse Resp BP Pulse Ox 97.8 F 102 H 18 158/95 98 01/24/17 15:59 01/24/17 15:59 01/24/17 15:59 01/24/17 15:59 01/24/17 15:59 General appearance: no acute distress Exam: General appearance: no acute distress - Eye Eye exam: Present: EOMI. no icterus Pupils: Present: CASA - ENT ENT exam: diffuse erythema of the oral mucosa improving, resolved whitish exudates - Respiratory Respiratory exam: vesicular BS, no crepitations or wheezes - Cardiovascular Cardiovascular exam: regular rate and rhythm, no murmurs - GI/Abdominal GI/Abdominal exam: normal bowel sounds, soft, non-tender, no organomegaly or mass - Extremities Exam Extremities exam: no edema, swelling to her left wrist persists but is mild, less swollen right wrist, right third finger bandaged - Skin Skin exam: no rash Results - Labs CBC & BMP: 01/24/17 06:14 01/24/17 06:15 Lab Results: I have reviewed the past 24 hour labs (Repeat blood cultures from the 12th still positive)
--- NOTE | 2017-01-24 19:48 | Rheumatology Progress Note ---
Assessment and Plan (1) left wrist acute arthritis Status: Acute Assessment and plan: Left wrist acute arthritis suspected septic arthritis and less likely rheumatoid arthritis or crystalline disease like gout or pseudogout Current Visit: Yes (2) right 2nd PIP arthritis Status: Acute Assessment and plan: Right hand second PIP acute arthritis s/p surgical excision and pus drainage 2* septic arthritis Current Visit: Yes (3) Severe sepsis Status: Acute Current Visit: No (4) History of rheumatoid arthritis Status: Acute Assessment and plan: For rheumatoid arthritis I recommend and preferred to continue oral prednisone at dose of 20 mg daily until he complete systemic antibiotics and his infection is cleared by infectious disease physician. No synthetic or Biologic DMARD's are indicated at this point given his septic arthritis. PLEASE DO NOT RESTART ENBREL till patient complete systemic antibiotics and is cleared for MRSA infection by ID. Follow up outpatient with Rheumatology clinic at [facility]. Current Visit: No (5) Sepsis Status: Acute Current Visit: No (6) Septic arthritis of multiple joints Status: Acute Assessment and plan: He has localized neck pain C5 to C7 cervical spine level which is concerning for any septic emboli involving C-spine, although he has no neurologic symptoms at this point so far. I would recommend C-spine MRI to evaluate for localized C -spine pain symptoms Current Visit: Yes Rheumatology Subjective Interval history: Patient seen and examined today. He has noticed mild improvement in his left wrist pain. He is s/p righ hand 3rd PIP excision and pus removal done by Dr. Vences. He is currently getting IV Vancomycin for MRSA positive bactremia. TTE done was negative for cardic valve vegitations. Currently on oral prednisone 20 mg daily. Patient has persist thrombocytosis which seems reactive. For anemia he is receiving blood transfusion today. Exam Rheumatology - Constitutional Vitals: Vital Signs Temp Pulse Pulse Resp BP BP Pulse Ox 01/24/17 17:29 97.7 F 96 H 18 168/98 01/24/17 16:29 97.6 F 102 H 16 162/94 01/24/17 15:59 97.8 F 102 H 18 158/95 98 01/24/17 15:54 98.1 F 103 H 17 158/100 01/24/17 15:49 98.2 F 100 H 18 155/87 99 01/24/17 15:42 98.2 F 101 H 16 136/77 98 01/24/17 12:16 98.1 F 99 H 16 142/81 01/24/17 07:45 96.8 F L 82 16 170/102 01/24/17 05:14 18 01/24/17 04:00 97.5 F L 91 H 20 151/90 01/24/17 03:09 18 01/24/17 01:06 16 01/24/17 00:20 97.3 F L 93 H 20 146/90 01/23/17 23:00 17 Pulse Ox 01/24/17 17:29 01/24/17 16:29 01/24/17 15:59 01/24/17 15:54 01/24/17 15:49 01/24/17 15:42 01/24/17 12:16 95 01/24/17 07:45 99 01/24/17 05:14 01/24/17 04:00 98 01/24/17 03:09 01/24/17 01:06 01/24/17 00:20 96 01/23/17 23:00 General appearance: normal weight, no acute distress - Head Head exam: Present: normal inspection - Eye Eye exam: Present: EOMI Pupils: Present: CASA - ENT ENT exam: Present: normal exam - Neck Neck exam: Present: normal inspection. Absent: lymphadenopathy - Respiratory Respiratory exam: Present: clear to auscultation bilaterally. Absent: rales, rhonchi, wheezes - Cardiovascular Cardiovascular exam: Present: regular rate and rhythm. Absent: gallop, JVD, systolic murmur - GI/Abdominal GI/Abdominal exam: Present: normal bowel sounds. Absent: distended, guarding, organomegaly, tenderness, rebound - Extremities Exam Extremities exam: Present: normal inspection, full ROM, other (EXcept left wrist and Right hand 3rd finger) - Neurological Exam Neurological exam: Present: oriented X3, CN II-XII intact, reflexes normal - Skin Skin exam: Present: normal color - Lymphatic Lymphatic: Absent: axillary lymphadenopathy Results - Labs CBC & BMP: 01/24/17 06:14 01/24/17 06:15 Specialty Discharge - Follow Up or Referrals - Speciality Discharge Instructions Radiation Oncology Instructions: FU outpatient 2 weeks after discharge.
[2017-01-25] MEDS: oxyCODONE/ACETAMINOPHEN 5-325 MG TABLET PO PRN ×4 (05:00→18:51)
[2017-01-25] MEDS: NYSTATIN 500,000 UNIT/5 ML UDCUP SWISH/SWAL SCH ×4 (08:29→20:13)
[2017-01-25] MEDS: FLUCONAZOLE 200 MG TABLET PO SCH (08:29)
[2017-01-25] MEDS: PANTOPRAZOLE 40 MG TABLET PO SCH (08:29)
[2017-01-25] MEDS: predniSONE 20 MG TABLET PO SCH (08:29)
[2017-01-25] MEDS: ASPIRIN EC 81 MG TABLET PO SCH (08:29)
[2017-01-25] MEDS: MELOXICAM 7.5 MG TABLET PO SCH (08:29)
[2017-01-25] MEDS: HYDROmorphone 2 MG/1 ML VIAL IV PRN ×4 (09:11→23:26)
[2017-01-25] MEDS: VANCOMYCIN INJ 1,000 MG in SODIUM CHLORIDE 0.9% 250 ML IV SCH (10:14)
--- NOTE | 2017-01-25 11:53 | Hospitalist Progress Note ---
Assessment and Plan (1) Septic arthritis of multiple joints Status: Acute Assessment and plan: s/p left wrist aspiration, s/p right pip joint debridement, Cont vanco, repeat blood cultures negative Current Visit: Yes (2) Asplenia Status: Acute Current Visit: No (3) Severe sepsis Status: Acute Assessment and plan: Resolved continue vancomycin, repeat blood cultures pending Current Visit: No (4) History of rheumatoid arthritis Status: Acute Assessment and plan: Hold Enbrel due to infection but continue p.o. steroids Current Visit: No (5) Hyponatremia Status: Acute Assessment and plan: Resolved Current Visit: No (6) Immunocompromised state Status: Acute Assessment and plan: Hold the Enbrel Current Visit: Yes (7) Substance use disorder Status: Acute Assessment and plan: Drug screen positive for marijuana, methamphetamines and opiates negative for HIV. No PICC line planned Current Visit: No (8) Bacteremia Status: Acute Assessment and plan: Repeat blood cultures negative , will need 6 weeks of IV antibiotics. Dr. Narayanan would like to do daptomycin through a peripheral line. continue Vanco Current Visit: Yes (9) Reactive thrombocytosis Status: Acute Assessment and plan: Stable Current Visit: Yes Hospitalist: Subjective Interval history: I am informed the patient today that I am going to have to reduce the frequency in which he receives the Dilaudid. Patient will be ready to go home on Saturday. Dr. Narayanan and I discussed sending him to [facility] for his IV antibiotics. Patient is a known drug attic and is known to inject. We will not be putting a PICC line in him but Dr. Narayanan feels that we do not have to force him to go some place for rehab for IV antibiotics. She said our liability end when we tell him he cannot use his peripheral IV to inject whether he chooses to do so or not is out of our control at that point. Patient's drug screen was positive for marijuana and amphetamines. Patient really does not want to go to rehab. Exam - Constitutional Vitals: Period Temp Pulse Resp BP Sys/Maxwell Pulse Ox Last 24 Hr 97.1 F-98.6 F 74-108 16-20 120-168/70-100 95-99 Exam: Heart Rate-[regular rate and rhythm] Lungs-[CTAB] GI-[+bs soft, NT] Ext-[no edema] Neuro [Motor 5/5], [alert and oriented times 3], swelling and left wrist better and right third PIP wrapped psych [Pleasant mood and affect] General [no acute distress Results - Labs CBC & BMP: 01/24/17 06:14 01/24/17 06:15 Lab Results: I have reviewed the past 24 hour labs Labs: Repeat blood cultures negative no growth 1 day
--- NOTE | 2017-01-25 12:43 | Infectious Disease Progress ---
Assessment and Plan (1) Immunocompromised state Status: Acute Assessment and plan: Due to being on Enbrel and also with his autoimmune condition, rheumatoid arthritis. The patient has history of recent IVDU. HIV done again on this admission fortunately is negative. Current Visit: Yes (2) Leukocytosis Status: Acute Assessment and plan: Most likely due to the septicemia. Current Visit: Yes (3) Bacteremia due to Staphylococcus aureus Status: Acute Assessment and plan: Unfortunately patient has had a relapse of MRSA septicemia. This is a complicated infection, now associated with septic arthritis to right third finger PIP. TTE negative for endocarditis. The vancomycin DAYLIN is 2; a few of the isolate that last admission also had a vancomycin DAYLIN of 2. Recommendations: 1. Discontinue vancomycin given borderline high DAYLIN and prolonged bacteremia 2. Start daptomycin 6 mg/kg IV daily 3. Monitor CPK level on daptomycin 4. Consult social economist to arrange outpatient antibiotics when it is time for patient to be discharged. Patient has been advised against injecting drugs and tampering with the IV access that we have supplied and that is the most we can do. I am okay with patient getting his antibiotic therapy at home or at an outpatient infusion center. The patient does not want to be inpatient for therapy. 5. PICC line will not be placed that the patient has excellent peripheral veins so he will get INT Discussed with Dr. Marshall Current Visit: No (4) Oral candidiasis Status: Acute Assessment and plan: Extensive stomatitis related to candidiasis. Much improved since admission. Continue fluconazole. Current Visit: No (5) Polysubstance abuse Status: Acute Assessment and plan: History of IVDU with risk for infective endocarditis. No endocarditis on TTE per patient will be treated with antibiotics for 6 weeks regardless. He will probably end up being treated at home once antibiotic therapy in outpatient setting is approved. The most we can do is advise against him temporary with the IV access we supply. Current Visit: No (6) Rheumatoid arthritis Status: Chronic Assessment and plan: Quite severe rheumatoid arthritis. Seen by a lei seller and is to remain off all immunosuppressive medication except for prednisone 20 g daily, to be clear the infection. Appreciate input by rheumatology. Current Visit: No (7) Septic arthritis of multiple joints Status: Acute Assessment and plan: Septic right third PIP joint. It does not seem as if any of the other joints of septic; joint pains related to rheumatoid arthritis. Recommendations: Vancomycin therapy for 6 weeks from date of negative blood cultures Current Visit: Yes Infectious Disease - PN: Subj Interval history: Patient doing fairly okay, less pain today but of course he still has multiple joint pains. No fever. No nausea vomiting or diarrhea. Infectious Disease Exam (PN) - Constitutional Vitals: Temp Pulse Resp BP Pulse Ox 96.8 F L 89 18 151/92 95 01/25/17 12:00 01/25/17 12:00 01/25/17 12:00 01/25/17 12:00 01/25/17 12:00 General appearance: normal weight, no acute distress Exam: General appearance: no acute distress - Eye Eye exam: Present: EOMI. no icterus Pupils: Present: CASA - ENT ENT exam: diffuse erythema of the oral mucosa almost resolved, occasional white exudate on inner lips - Respiratory Respiratory exam: vesicular BS, no crepitations or wheezes - Cardiovascular Cardiovascular exam: regular rate and rhythm, no murmurs - GI/Abdominal GI/Abdominal exam: normal bowel sounds, soft, non-tender, no organomegaly or mass - Extremities Exam Extremities exam: no edema, swelling to her left wrist persists but is mild, less swollen right wrist, right third finger bandaged - Skin Skin exam: no rash Results - Labs CBC & BMP: 01/24/17 06:14 01/24/17 06:15 Lab Results: I have reviewed the past 24 hour labs (MRSA from blood cultures with vancomycin DAYLIN of 2, repeat blood cultures from yesterday negative to date)
--- NOTE | 2017-01-25 13:15 | Orthopedic Progress Note ---
Orthopedics - Subjective Interval history: Dressing change finger much improved only packed a small amount of gauze much less swelling and no erythema. No complaints about left wrist. Continue dressing change to the weekend and hopefully a plan for long-term antibiotic will be made by Saturday. Exam - Constitutional Vitals: Period Temp Pulse Resp BP Sys/Maxwell Pulse Ox Last 24 Hr 96.8 F-98.6 F 74-108 16-20 120-168/70-100 95-99 Results - Labs CBC & BMP: 01/24/17 06:14 01/24/17 06:15
[2017-01-26] MEDS: oxyCODONE/ACETAMINOPHEN 5-325 MG TABLET PO PRN ×5 (02:22→22:35)
[2017-01-26] MEDS: HYDROmorphone 2 MG/1 ML VIAL IV PRN ×4 (04:57→20:02)
[2017-01-26 06:31] LABS: Basophils % 0.1 % (0.0-0.8); Eosinophils # 0.2 10*3/uL (0.0-0.87); Eosinophils % 1.5 % (0.00-10.9); Hematocrit 28.3 VOL% (42.0-52.0); Hemoglobin 9.4 GM/DL (14.0-18.0); Immature Granulocytes % 0.7 %; Lymphocytes # 5.2 10*3/uL (1.4-4.0); Lymphocytes % 37.3 % (21.2-54.2); Mean Corpuscular HGB Conc 33.2 GM/DL (32-36); Mean Corpuscular Hemoglobin 29 PG (27-34); Mean Corpuscular Volume 86.5 FL (87-102); Mean Platelet Volume 10.3 FL (9.6-12.0); Monocytes # 1.3 10*3/uL (0.11-0.8); Monocytes % 9.6 % (1.7-12.7); Neutrophils # 7.1 10*3/uL (1.4-7.4); Neutrophils % 50.8 % (38.7-73.9); Platelet Count 986 T/CUMM (130-400); Red Blood Count 3.27 MC/CUMM (3.8-5.5); Red Cell Distribution Width 18.2 % (9.3-17.3)
[2017-01-26] MEDS: PANTOPRAZOLE 40 MG TABLET PO SCH (08:01)
[2017-01-26] MEDS: FLUCONAZOLE 200 MG TABLET PO SCH (08:01)
[2017-01-26] MEDS: NYSTATIN 500,000 UNIT/5 ML UDCUP SWISH/SWAL SCH ×4 (08:01→20:02)
[2017-01-26] MEDS: MELOXICAM 7.5 MG TABLET PO SCH (08:01)
[2017-01-26] MEDS: predniSONE 20 MG TABLET PO SCH (08:01)
[2017-01-26] MEDS: ASPIRIN EC 81 MG TABLET PO SCH (08:01)
--- NOTE | 2017-01-26 14:53 | Hospitalist Progress Note ---
Assessment and Plan (1) Septic arthritis of multiple joints Status: Acute Assessment and plan: s/p left wrist aspiration, s/p right pip joint debridement, Cont vanco, repeat blood cultures negative, will do daptomycin for 6 weeks Current Visit: Yes (2) Asplenia Status: Acute Current Visit: No (3) Severe sepsis Status: Acute Assessment and plan: Resolved continue vancomycin for now, repeat blood cultures negative no growth Current Visit: No (4) History of rheumatoid arthritis Status: Acute Assessment and plan: Hold Enbrel due to infection but continue p.o. steroids Current Visit: No (5) Hyponatremia Status: Acute Assessment and plan: Resolved Current Visit: No (6) Immunocompromised state Status: Acute Assessment and plan: Hold the Enbrel Current Visit: Yes (7) Substance use disorder Status: Acute Assessment and plan: Drug screen positive for marijuana, methamphetamines and opiates negative for HIV. No PICC line planned Current Visit: No (8) Bacteremia Status: Acute Assessment and plan: Repeat blood cultures negative , will need 6 weeks of IV antibiotics daptomycin 6 mg/kg IV daily, will have to monitor CPK while on daptomycin. Current Visit: Yes (9) Reactive thrombocytosis Status: Acute Assessment and plan: Improving Current Visit: Yes Hospitalist: Subjective Interval history: Discussed with patient he will go home with a peripheral IV on Saturday. He will need 6 weeks of IV antibiotics. We will try to get him approved for daptomycin. Did specifically discuss with the patient that it is very dangerous and not appropriate for him to inject through his peripheral IV with drugs. He indicated his understanding of the risk and promised not to do it. Exam - Constitutional Vitals: Period Temp Pulse Resp BP Sys/Maxwell Pulse Ox Last 24 Hr 97.9 F-98.6 F 79-103 18-20 145-160/71-89 90-98 Exam: Heart Rate-[regular rate and rhythm] Lungs-[CTAB] GI-[+bs soft, NT] Ext-[no edema] Neuro [Motor 5/5], [alert and oriented times 3], psych [Pleasant mood and affect] General [no acute distress Results - Labs CBC & BMP: 01/26/17 05:53 01/24/17 06:15 Lab Results: I have reviewed the past 24 hour labs Labs: Blood cultures 4 negative no growth.
[2017-01-27] MEDS: HYDROmorphone 2 MG/1 ML VIAL IV PRN ×3 (00:28→19:45)
[2017-01-27] MEDS: oxyCODONE/ACETAMINOPHEN 5-325 MG TABLET PO PRN ×4 (06:04→22:24)
[2017-01-27 07:03] LABS: Basophils % 0.2 % (0.0-0.8); Eosinophils # 0.2 10*3/uL (0.0-0.87); Eosinophils % 1.5 % (0.00-10.9); Hematocrit 28.9 VOL% (42.0-52.0); Hemoglobin 9.4 GM/DL (14.0-18.0); Immature Granulocytes % 1.1 %; Immature Granulocytes Absolute 0.17 #; Lymphocytes # 5.6 10*3/uL (1.4-4.0); Lymphocytes % 35.9 % (21.2-54.2); Mean Corpuscular HGB Conc 32.5 GM/DL (32-36); Mean Corpuscular Hemoglobin 28 PG (27-34); Mean Corpuscular Volume 87.3 FL (87-102); Mean Platelet Volume 10.5 FL (9.6-12.0); Monocytes # 1.5 10*3/uL (0.11-0.8); Monocytes % 9.6 % (1.7-12.7); Neutrophils # 8.1 10*3/uL (1.4-7.4); Neutrophils % 51.7 % (38.7-73.9); Platelet Count 962 T/CUMM (130-400); Red Blood Count 3.31 MC/CUMM (3.8-5.5); Red Cell Distribution Width 18.9 % (9.3-17.3); White Blood Count 15.6 T/CUMM (4-12)
[2017-01-27] MEDS: MELOXICAM 7.5 MG TABLET PO SCH (08:11)
[2017-01-27] MEDS: PANTOPRAZOLE 40 MG TABLET PO SCH (08:11)
[2017-01-27] MEDS: ASPIRIN EC 81 MG TABLET PO SCH (08:11)
[2017-01-27] MEDS: predniSONE 20 MG TABLET PO SCH (08:11)
[2017-01-27] MEDS: NYSTATIN 500,000 UNIT/5 ML UDCUP SWISH/SWAL SCH ×4 (08:12→20:50)
--- NOTE | 2017-01-27 14:35 | Hospitalist Progress Note ---
Assessment and Plan (1) Septic arthritis of multiple joints Status: Acute Assessment and plan: s/p left wrist aspiration, s/p right pip joint debridement, Cont daptomycin for 6 weeks from 01/24 Current Visit: Yes (2) Asplenia Status: Acute Current Visit: No (3) Severe sepsis Status: Acute Assessment and plan: Resolved, continue daptomycin Current Visit: No (4) History of rheumatoid arthritis Status: Acute Assessment and plan: Hold Enbrel due to infection but continue p.o. steroids Current Visit: No (5) Hyponatremia Status: Acute Assessment and plan: Resolved Current Visit: No (6) Immunocompromised state Status: Acute Assessment and plan: Hold the Enbrel Current Visit: Yes (7) Substance use disorder Status: Acute Assessment and plan: Drug screen positive for marijuana, methamphetamines and opiates negative for HIV. No PICC line planned. Will leave with a peripheral line Current Visit: No (8) Bacteremia Status: Acute Assessment and plan: need 6 weeks of IV antibiotics daptomycin 6 mg/kg IV daily, will have to monitor CPK while on daptomycin. Current Visit: Yes (9) Reactive thrombocytosis Status: Acute Assessment and plan: Improving Current Visit: Yes Hospitalist: Subjective Interval history: Patient continues to assure me that he will not use any IV drugs through his peripheral IV when he is discharged tomorrow. He is very concerned about which pain medicine he will get on discharge. I would recommend Percocet at this point. Patient is ambulating well. Exam - Constitutional Vitals: Period Temp Pulse Resp BP Sys/Maxwell Pulse Ox Last 24 Hr 97.5 F-98.6 F 80-104 16-18 131-160/79-99 97-99 Exam: Heart Rate-[regular rate and rhythm] Lungs-[CTAB] GI-[+bs soft, NT] Ext-[no edema] Neuro [Motor 5/5], [alert and oriented times 3], psych [Pleasant mood and affect] General [no acute distress Results - Labs CBC & BMP: 01/27/17 05:38 01/24/17 06:15 Lab Results: I have reviewed the past 24 hour labs Labs: Blood cultures 1/4 growing gram-positive cocci.
[2017-01-27] MEDS: CARVEDILOL 3.125 MG TABLET PO SCH ×2 (16:26→20:50)
[2017-01-28] MEDS: HYDROmorphone 2 MG/1 ML VIAL IV PRN ×6 (01:03→22:14)
[2017-01-28 06:45] LABS: Basophils % 0.3 % (0.0-0.8); Eosinophils # 0.2 10*3/uL (0.0-0.87); Eosinophils % 1.2 % (0.00-10.9); Hematocrit 28.7 VOL% (42.0-52.0); Hemoglobin 9.4 GM/DL (14.0-18.0); Immature Granulocytes % 1.1 %; Immature Granulocytes Absolute 0.17 #; Lymphocytes # 5.7 10*3/uL (1.4-4.0); Lymphocytes % 35.8 % (21.2-54.2); Mean Corpuscular HGB Conc 32.8 GM/DL (32-36); Mean Corpuscular Hemoglobin 29 PG (27-34); Mean Platelet Volume 10.4 FL (9.6-12.0); Monocytes # 1.4 10*3/uL (0.11-0.8); Monocytes % 8.8 % (1.7-12.7); Neutrophils # 8.4 10*3/uL (1.4-7.4); Neutrophils % 52.8 % (38.7-73.9); Platelet Count 970 T/CUMM (130-400); Red Cell Distribution Width 19.2 % (9.3-17.3); White Blood Count 15.9 T/CUMM (4-12)
[2017-01-28] MEDS: PANTOPRAZOLE 40 MG TABLET PO SCH (08:05)
[2017-01-28] MEDS: MELOXICAM 7.5 MG TABLET PO SCH (08:05)
[2017-01-28] MEDS: NYSTATIN 500,000 UNIT/5 ML UDCUP SWISH/SWAL SCH ×4 (08:05→20:20)
[2017-01-28] MEDS: predniSONE 20 MG TABLET PO SCH (08:05)
[2017-01-28] MEDS: CARVEDILOL 3.125 MG TABLET PO SCH ×2 (08:05→20:20)
[2017-01-28] MEDS: ASPIRIN EC 81 MG TABLET PO SCH (08:05)
[2017-01-28] MEDS: oxyCODONE/ACETAMINOPHEN 5-325 MG TABLET PO PRN ×4 (08:06→20:20)
--- NOTE | 2017-01-28 13:03 | Event Note ---
I discussed with Dr. Narayanan and Dr. Reis. Saw and examined and discussed the findings with the patient. The patient is previously declined DEMOND. I discussed with him all risks benefits and options including difficulty with anesthesia aspiration damaged teeth esophageal perforation or tear gastric perforation or tear any of which could potentially result in . The patient states that he is not ready to make a decision yet I told him that we would post him for the procedure tomorrow to save time in the lab. He has eaten today and cannot have conscious sedation in this calendar day due to the timing of the day. He voiced understanding and will let me know in the morning.
--- NOTE | 2017-01-28 13:45 | Infectious Disease Progress ---
Assessment and Plan (1) Immunocompromised state Status: Acute Assessment and plan: Due to being on Enbrel and also with his autoimmune condition, rheumatoid arthritis. The patient has history of recent IVDU. HIV done again on this admission fortunately is negative. Current Visit: Yes (2) Leukocytosis Status: Acute Assessment and plan: Most likely due to the septicemia. It still has not resolved. Steroids may be contributing. Current Visit: Yes (3) Bacteremia due to Staphylococcus aureus Status: Acute Assessment and plan: Unfortunately patient has prolonged MRSA septicemia. This is a complicated infection, now associated with septic arthritis to right third finger PIP. TTE negative for endocarditis. Recommendations: 1. Continue daptomycin 6 mg/kg IV daily. Plan is to treat the patient for 6 weeks from the date of negative blood cultures 2. Repeat blood cultures again today 3. Apparently the patient is reconsidering now a DEMOND 4. Discussed with Dr. Reis, and nurse contacted risk management and apparently we cannot send the patient home with IV access due to his history of IV drug use. Plan again is for him to go to swing bed. Current Visit: No (4) Oral candidiasis Status: Acute Assessment and plan: Extensive stomatitis related to candidiasis. Resolved. Current Visit: No (5) Polysubstance abuse Status: Acute Assessment and plan: History of IVDU with risk for infective endocarditis. No endocarditis on TTE but patient will be treated with antibiotics for 6 weeks regardless. He was seen by cardiology and is considering DEMOND which may be done tomorrow. Current Visit: No (6) Rheumatoid arthritis Status: Chronic Current Visit: No (7) Septic arthritis of multiple joints Status: Acute Assessment and plan: Improved status post I&D. Recommendations: Daptomycin therapy for 6 weeks from date of negative blood cultures Current Visit: Yes Infectious Disease - PN: Subj Interval history: The patient feels fairly okay. Uneventful weekend. His only complaint is the joint pains related to his rheumatoid arthritis. He has not had any fever. Infectious Disease Exam (PN) - Constitutional Vitals: Temp Pulse Resp BP Pulse Ox 97.7 F 99 H 18 161/95 94 L 01/28/17 12:00 01/28/17 12:00 01/28/17 12:00 01/28/17 12:00 01/28/17 12:00 General appearance: normal weight, no acute distress Exam: General appearance: no acute distress, sitting on side of bed - Eye Eye exam: Present: EOMI. no icterus Pupils: Present: CASA - ENT ENT exam: diffuse erythema of the oral mucosa better - Respiratory Respiratory exam: vesicular BS, no crepitations or wheezes - Cardiovascular Cardiovascular exam: regular rate and rhythm, no murmurs - GI/Abdominal GI/Abdominal exam: normal bowel sounds, soft, non-tender, no organomegaly or mass - Extremities Exam Extremities exam: no edema, mild swelling to wrists, right third finger bandaged foot of wound noted in the sutures in situ, no erythema -, less swelling overall - Skin Skin exam: no rash Results - Labs CBC & BMP: 01/28/17 06:05 01/24/17 06:15 Lab Results: I have reviewed the past 24 hour labs (Repeat blood cultures from the 14th positive in 1 of 4 sets)
--- NOTE | 2017-01-28 14:34 | Hospitalist Progress Note ---
Assessment and Plan (1) Arthralgia of multiple joints Status: Acute Assessment and plan: Patient amount of rheumatoid arthritis and he used to be on a disease modifying modality prior to getting infections. Recommendation will be to get him off the antiarthritic medication while he is get an infection use NSAIDs and/or other modalities. He does have a persistent leukocytosis, which could be contribution of steroid caused demargination. Current Visit: Yes (2) Severe sepsis Status: Acute Assessment and plan: Patient does not look toxic at this time. However his blood cultures are still positive with methicillin-resistant staph aureus. Continuous bacteremia has been establishes this point most likely does get endovascular infection and I suspect 1 of the valves on the left side. I have discussed with the infectious disease senior market intelligence consultant, Dr. Ledesma as regards the issue of using daptomycin on this gentleman. If this turns out to be proven endocarditis, should change this antibiotic to another including the new. Unfortunately this gentleman has an DAYLIN of 2 to vancomycin which he means of getting rid of his infection will be difficult. That is being the case then will help to maintain his trough levels 20 mcg/mL and possibly add rifampin to the treatment at that time. All else use the new long-acting antibiotics including dalbavancin q 2weeks +/- rifampin at skin and soft tissue doses of 1500 mg IV every 2 weeks 3 doses (No studies on treatment of endocarditis) Current Visit: No (3) MRSA bacteremia Status: Acute Assessment and plan: As above as of now patient remains bacteremic. Repeat cultures done today. Current Visit: No (4) Polysubstance abuse Status: Acute Assessment and plan: Discussed with the patient the dangers of polysubstance abuse especially in the face of his medical condition now. That the drug use possibly has direct relationship to what is going on with him. He is adamant is not shooting drugs. Claiming that all the other doctors have been accusing him of shooting drugs. Current Visit: No (5) Septic arthritis of multiple joints Status: Acute Assessment and plan: This is a result of embolic phenomena i.e. mycotic embolism. I suspicion that this gentleman is left-sided endocarditis. Case discussed with primary care nursing as well as Dr. Ledesma. Current Visit: Yes Hospitalist: Subjective Interval history: Patient has been seen interviewed and examined and chart has been reviewed. This is first encounter with this patient has been on service since 21 January 2017; having been admitted with MRSA bacteremia. Patient was repeat culture the day after the first culture which came out 2 out of 2 also grew the same methicillin-resistant bacteremia. He had a repeat blood culture on 24 January that also has grown methicillin resistant bacteremia. He had infection or with finger joint in the right hand that also grew the same organism. I am informed that been multiple joint infections with this gentleman. He has a history of illicit drug use. He denies injecting drugs but when he came here did have amphetamine byproducts alongside opioids and marijuana. Strong indication that this gentleman has left-sided endocarditis. No pulmonary infiltrates fortunately no other internal organ involvement with infections at least at this time. Gentleman has been under consultation with infectious disease alongside I was management to the office of Dr. Marshall. I am is signed up to see this patient today. Does plan to discharge him with intention of getting antibiotics at home he has no central line. Given the fact that he still has positive blood cultures obviously a central line will be not only dangerous to 14 at this time but futile because definitely will get infected. He does have history of illicit drug use and sending him home with a central line is a risk for him injecting drugs in the IV. For we are at very difficult spot in regard to deciding on how to treat him outpatient. He obviously needs repeat blood cultures and therefore have ordered them. He did have a trans-thoracic echocardiogram that does not show any true vegetations but he does have low regurgitant mitral valve. Given continuous bacteremia optimally he would need a transesophageal echocardiogram. The need to be objective state of the blood cultures. That will be the best starting point of how to target outpatient treatment duration. I have therefore consulted cardiology as regard to obtaining a DEMOND. Patient has been seen today. Exam - Constitutional Vitals: Period Temp Pulse Resp BP Sys/Maxwell Pulse Ox Last 24 Hr 97.3 F-98.6 F 85-100 16-18 133-161/76-98 94-99 General appearance: normal weight, no acute distress, other (Patient has had expectant of the discharge today I did explain to him at length as to need of doing further evaluation especially since his blood cultures are still positive. 100 of care was also explained to the patient.) - Head Head exam: Present: normocephalic, atraumatic - Eye Eye exam: Present: EOMI, other (I could not do a funduscopic examination effectively due to lack of mydriasis) Pupils: Present: CASA - Respiratory Respiratory exam: Present: clear to auscultation bilaterally - Cardiovascular Cardiovascular exam: Present: regular rate and rhythm - GI/Abdominal GI/Abdominal exam: Present: normal bowel sounds, soft - Extremities Exam Extremities exam: Present: full ROM, other (Infected site to the phalangeal interphalangeal joint in the middle finger on the right hand is dressed) - Neurological Exam Neurological exam: Present: alert, oriented X3, CN II-XII intact - Psychiatric Psychiatric exam: Present: normal affect, normal mood - Skin Skin exam: Present: normal color, warm, dry Results - Labs CBC & BMP: 01/28/17 06:05 01/24/17 06:15 Lab Results: I have reviewed the past 24 hour labs (Noted persistent leukocytosis and anemia and thrombocytosis. The thrombocytosis most likely reactive patient's creatinine is 0.8 Blood cultures from 24 January reporting methicillin-resistant staph aureus. Blood cultures ordered today)
[2017-01-29] MEDS: oxyCODONE/ACETAMINOPHEN 5-325 MG TABLET PO PRN ×2 (00:22→08:23)
[2017-01-29] MEDS: HYDROmorphone 2 MG/1 ML VIAL IV PRN ×2 (06:31→10:25)
[2017-01-29 07:45] LABS: Basophils # 0.1 10*3/uL (0.0-0.2); Basophils % 0.3 % (0.0-0.8); Eosinophils # 0.2 10*3/uL (0.0-0.87); Eosinophils % 1.2 % (0.00-10.9); Hemoglobin 9.5 GM/DL (14.0-18.0); Immature Granulocytes % 0.8 %; Immature Granulocytes Absolute 0.12 #; Lymphocytes # 5.7 10*3/uL (1.4-4.0); Mean Corpuscular HGB Conc 32.8 GM/DL (32-36); Mean Corpuscular Hemoglobin 29 PG (27-34); Mean Corpuscular Volume 88.1 FL (87-102); Mean Platelet Volume 10.8 FL (9.6-12.0); Monocytes # 1.3 10*3/uL (0.11-0.8); Neutrophils # 7.3 10*3/uL (1.4-7.4); Neutrophils % 49.7 % (38.7-73.9); Platelet Count 839 T/CUMM (130-400); Red Blood Count 3.29 MC/CUMM (3.8-5.5); Red Cell Distribution Width 19.7 % (9.3-17.3); White Blood Count 14.7 T/CUMM (4-12)
--- NOTE | 2017-01-29 07:59 | Hospitalist Progress Note ---
Assessment and Plan (1) Immunocompromised state Status: Acute Assessment and plan: Patient is immunocompromised because of his rheumatoid arthritis and treatment with etanercept. He is HIV negative. Current Visit: Yes (2) MRSA bacteremia Status: Acute Assessment and plan: Is presently being treated with daptomycin 6 mg/kg intravenous daily, as per the recommendations of infectious diseases. Most recent blood culture on 2016 continue to demonstrate MRSA bacteremia. Transthoracic echocardiography demonstrated no evidence of bacterial endocarditis. He has previously declined to undergo a transesophageal echocardiogram. I will consult case management to make arrangements for transfer of the patient to a swing bed where he can continue his intravenous antibiotics. Current Visit: No (3) Polysubstance abuse Status: Acute Current Visit: No (4) Rheumatoid arthritis Status: Chronic Current Visit: No (5) Sepsis Status: Acute Assessment and plan: He is significantly improved. His vital signs today are blood pressure 138/77, HR 77/min, and temperature 97.6F. He continues on the above antibiotics. Current Visit: No Qualifiers: Sepsis type: methicillin resistant Staphylococcus aureus Qualified Code(s) : A41.02 - Sepsis due to Methicillin resistant Staphylococcus aureus (6) Septic arthritis of multiple joints Status: Acute Assessment and plan: Patient is status post drainage of septic arthritis of the right third finger PIP. Current Visit: Yes Qualifiers: Septic arthritis organism: staphylococcal Qualified Code(s): M00.09 - Staphylococcal polyarthritis (7) Oral candidiasis Status: Acute Current Visit: No Hospitalist: Subjective Interval history: Patient passed an uneventful night. He is comfortable with no new complaints. He is being followed by Dr. Spicer of infectious diseases. She is recommended that he be treated with daptomycin 6 mg/kg intravenous for 6 weeks following his last negative blood culture. Exam - Constitutional Vitals: Period Temp Pulse Resp BP Sys/Maxwell Pulse Ox Last 24 Hr 96.7 F-98.5 F 74-112 16-20 138-168/74-98 94-99 General appearance: no acute distress - Head Head exam: Present: normal inspection - Neck Neck exam: Present: normal inspection - Respiratory Respiratory exam: Present: clear to auscultation bilaterally - Cardiovascular Cardiovascular exam: Present: regular rate and rhythm - GI/Abdominal GI/Abdominal exam: Present: normal bowel sounds, soft, other (Nontender with no palpable masses or hepatosplenomegaly.) - Extremities Exam Extremities exam: Present: normal inspection - Skin Skin exam: Present: normal color, warm, intact Results - Labs CBC & BMP: 01/29/17 06:55 01/24/17 06:15
[2017-01-29] MEDS: NYSTATIN 500,000 UNIT/5 ML UDCUP SWISH/SWAL SCH (08:23)
[2017-01-29] MEDS: predniSONE 20 MG TABLET PO SCH (08:23)
[2017-01-29] MEDS: ASPIRIN EC 81 MG TABLET PO SCH (08:23)
[2017-01-29] MEDS: MELOXICAM 7.5 MG TABLET PO SCH (08:23)
[2017-01-29] MEDS: CARVEDILOL 3.125 MG TABLET PO SCH (08:23)
[2017-01-29] MEDS: PANTOPRAZOLE 40 MG TABLET PO SCH (08:23)
--- NOTE | 2017-01-29 08:24 | Orthopedic Progress Note ---
Orthopedics - Subjective Interval history: Finger much improved there is nothing left to pack was dressed today with a Band -Aid and follow-up in about 1 week for suture removal. Exam - Constitutional Vitals: Period Temp Pulse Resp BP Sys/Maxwell Pulse Ox Last 24 Hr 96.7 F-98.5 F 74-112 16-20 138-168/74-98 94-98 Results - Labs CBC & BMP: 01/29/17 06:55 01/24/17 06:15
--- NOTE | 2017-01-29 08:28 | Event Note ---
I had a second discussion with the patient about DEMOND. He declined. He says that he ate and does not to have the procedure. Please call if needed will sign off
[2017-01-29 08:37] VITALS: BP 132/82
[2017-01-29] MEDS ORDERED: ACETAMINOPHEN 325 MG TABLET PO PRN (10:24)
--- NOTE | 2017-01-29 10:29 | Hospitalist Progress Note ---
Hospitalist: Subjective Interval history: Patient seen and examined; chart reviewed. Patient refused DEMOND this a.m. per cardiology recommendation. Reported multiple reasons why including failure to adhere to n.p.o. order. Spoke with the patient in great detail and discussed the merits of the completion of the DEMOND however, patient continues to refuse. Exam - Constitutional Vitals: Period Temp Pulse Resp BP Sys/Maxwell Pulse Ox Last 24 Hr 96.7 F-98.5 F 74-112 16-20 132-168/74-98 94-98 Results - Labs CBC & BMP: 01/29/17 06:55 01/24/17 06:15 Specialty Discharge - Follow Up or Referrals Follow up with: Shankar Vences Jr., MD [Physician] - (Suture removal in one week.)
--- NOTE | 2017-02-13 14:45 | Discharge Summary ---
Hospital Course - Hospital Course Hospital Course: History of present illness: Mr. Piedar is a 46 year old white male with a past medical history significant for hypertension and rheumatoid arthritis who presents to the ED today with complaints of aching joints all over his body having onset 2 days ago. Patient reports that he was recently discharged from [facility] approximately 1 week ago after a 2 week rehab for continued antibiotic therapy status post bacteremia and hospital stay. The patient's last admission in December, his white count was last recorded as 9. He went home on oral antibiotics with infectious disease follow-up. Patient states he attempted to call Dr. Oracio Doan office on Saturday but was unable to reach anyone. On exam, the patient is noticeably uncomfortable, in pain and having difficulty moving. He does have multiple swollen joints that are warm to the touch, particularly in the right hand and bilateral wrists. Patient denies headache, chest pain, abdominal pain, nausea vomiting. He notes that he does see a cooker loader in [place] but is unable to secure an appointment for March. He is currently taking Enbrel but has been off of his medications for the last month due to systemic infection. Lab work reveals WBC 19.5, hemoglobin 9.1, hematocrit 26.9 , platelet count 1115,, sodium 136, potassium 4.1, BUN 33, creatinine 0.90, serum glucose 145. Case has been discussed with both Dr. Salmeron, ED physician, and Dr. Golden, admitting physician and the patient will be admitted to the hospital medicine service for further evaluation and treatment. Patient was subsequently diagnosed with MRSA bacteremia, septic arthritis of multiple joints, oral candidiasis, rheumatoid arthritis, polysubstance abuse, and immunocompromised state. HIV testing was negative. He was seen in consultation by orthopedics, rheumatology, infectious diseases, and cardiology.Patient was treated with intravenous daptomycin as per recommendations of infectious disease. He was recommended to undergo a transesophageal echocardiogram which he refused, following which he left the hospital AGAINST MEDICAL ADVICE. Diagnosis - Discharge Diagnosis (1) Immunocompromised state Status: Chronic (2) MRSA bacteremia Status: Acute (3) Polysubstance abuse Status: Chronic (4) Rheumatoid arthritis Status: Chronic (5) Sepsis Status: Acute (6) Septic arthritis of multiple joints Status: Acute (7) Oral candidiasis Status: Acute Specialty Discharge - Follow Up or Referrals Follow up with: Shankar Vences Jr., MD [Physician] - (Suture removal in one week.) Discharge Plan - Discharge Data Disposition: Left Against Medical Advice Condition at Discharge: Undetermined - Discharge Medications Continue Etanercept [Enbrel] 50 mg SUBCUT MOTH Meloxicam [Mobic] 7.5 mg PO DAILY tablet Acetaminophen Tab [Tylenol Tab] 325 mg PO Q4H PRN tablet PRN Reason: fever, headache/body aches predniSONE TAB [PredniSONE] 20 mg PO DAILY tablet - Follow Up or Referral Follow Up: Shankar Vences Jr., MD [Physician] - (Suture removal in one week.) - Forms/Instructions Discharge Results Procedures and tests throughout hospitalization: Pending Orders 01/22/17 17:45 Abscess Culture Routine Anaerobic Culture Routine DS: Provider Date of admission: 01/21/17 18:25 Primary care physician: . No PCP Attending physician on admission: Isaias Golden MD Consults: 01/21/17 19:27 Consult to Physician [CONS] Routine Comment: leukocytosis Consulting Provider: Holly Ledesma Person Notified: Rebecca Date Notified: 01/22/17 Time Notified: 12:10 01/21/17 19:28 Consult to Physician [CONS] Routine Comment: elevated plt count Consulting Provider: Isaias Cao Person Notified: md merino Date Notified: 01/22/17 Time Notified: 12:11 01/21/17 21:50 Consult to Pastoral Services [CONS] Routine Comment: Pastoral Screen: Request Advanced Quality Engineer Visit 01/22/17 08:38 Consult to Pharmacy [CONS] Routine Reason for Pharmacy Consult: Dose/Manage Vancomycin 01/22/17 10:29 Consult to Physician [CONS] Routine Comment: septic joint, RA Consulting Provider: Shankar Vences Jr. Person Notified: [email or web address] Date Notified: 01/22/17 Time Notified: 12:11 Consult Notification Comment: md merino 01/22/17 12:35 Consult to Physician [CONS] Routine Comment: rheum at MMA, septic joint in ra pt Consulting Provider: Louis Kay Person Notified: michael Date Notified: 01/22/17 Time Notified: 12:51 01/23/17 11:30 Consult to [facility] [CONS] Routine Reason for Wound Care: Wound Care Management Consult Comment: Daily dressing changes, packed with gauze 01/24/17 10:47 Consult to Occupational Therapy [CONS] Routine Reason for Occupational Therapy: Evaluate and Treat Consult to Physical Therapy [CONS] Routine Reason for Physical Therapy: Evaluate and Treat 01/25/17 11:56 Consult to Case Mgmt/Social Srvs [CONS] Routine Reason for Case Mgmt/Social Srvs: Home IV Therapy Consult Comment: 6 weeks of daptomycin from home per oracio 01/25/17 12:38 Consult to Case Mgmt/Social Srvs [CONS] Routine Reason for Case Mgmt/Social Srvs: Home IV Therapy Consult Comment: Daptomycin 6 mg/kg IV daily until March 07 01/28/17 10:23 Consult to Physician [CONS] Routine Comment: needs DEMOND, bactremia, abnormal TTE Consulting Provider: Edward Meehan Consult to Specialist Group: Cardiology Person Notified: CLARISSA Date Notified: 01/28/17 Time Notified: 10:40 Consult Notification Comment: 01/29/17 08:04 Consult to Case Mgmt/Social Srvs [CONS] Routine Reason for Case Mgmt/Social Srvs: Swingbed/SNF/Prison Consult Comment: swing bed for 6 weeks of iv antibiotics Discharging clinician: Devon Jack
== END 2017-01-29 13:27 | disposition left against medical advice (07) | DRG 872 ==
LOC: EDUNIT# → EDBD → N.ED 13:34 → N.EDINP 18:25 → SUATTDRO 18:25 → N.EDINP 21:01 → N.5E 21:38
PROVIDERS: ADMIT Internal Medicine

== ENCOUNTER 2018-06-29 18:58 | Inpatient (IN) ==
[2018-06-29] MEDS ORDERED: SODIUM CHLORIDE 0.9% 1,000 ML IV STA ×2 (20:01→21:02)
[2018-06-29] MEDS ORDERED: ONDANSETRON 4 MG/2 ML VIAL IV STA (20:01)
[2018-06-29 20:10] LABS: Basophils # 0.1 10*3/uL (0.0-0.2); Basophils % 0.6 % (0.0-0.8); Eosinophils % 0.1 % (0.00-10.9); Hematocrit 38.5 VOL% (42.0-52.0); Hemoglobin 12.2 GM/DL (14.0-18.0); Immature Granulocytes % 1.1 %; Immature Granulocytes Absolute 0.16 #; Lymphocytes # 1.8 10*3/uL (1.4-4.0); Lymphocytes % 12.5 % (21.2-54.2); Mean Corpuscular HGB Conc 31.7 GM/DL (32-36); Mean Corpuscular Hemoglobin 31 PG (27-34); Mean Corpuscular Volume 97.2 FL (87-102); Monocytes # 0.4 10*3/uL (0.11-0.8); Monocytes % 2.6 % (1.7-12.7); Neutrophils % 83.1 % (38.7-73.9); Platelet Count 353 T/CUMM (130-400); Red Blood Count 3.96 MC/CUMM (3.8-5.5); Red Cell Distribution Width 16.1 % (9.3-17.3); White Blood Count 14.4 T/CUMM (4-12)
[2018-06-29 20:16] LABS: INR 1.2; PT Patient Result 12.7 SECS
[2018-06-29 20:26] LABS: Albumin 2.6 G/DL (3.4-5.0); Bilirubin,Total 0.6 MG/DL (0.2-1.0); Calcium 8.1 MG/DL (8.5-10.1); Osmolality,Calculated 282.7 MOS/KG (273-304); Total Protein 6.6 G/DL (6.4-8.3)
[2018-06-29] MEDS ORDERED: PANTOPRAZOLE 40 MG VIAL IV STA (21:02)
[2018-06-29] MEDS ORDERED: PROMETHAZINE 25 MG/1 ML VIAL IM PRN (23:00)
[2018-06-29] MEDS ORDERED: ONDANSETRON 4 MG/2 ML VIAL IV PRN (23:00)
[2018-06-29] MEDS ORDERED: SODIUM CHLORIDE 0.9% 1,000 ML IV SCH (23:00)
[2018-06-29] MEDS ORDERED: NICOTINE 21 MG/24 HR PATCH TRANSDERM PRN (23:00)
[2018-06-29] MEDS ORDERED: diphenhydrAMINE CAP 25 MG CAPSULE PO PRN (23:00)
[2018-06-29] MEDS ORDERED: MEPERIDINE 25 MG/1 ML VIAL IV PRN (23:00)
[2018-06-29] MEDS ORDERED: PANTOPRAZOLE INJ 200 MG in SODIUM CHLORIDE 0.9% 250 ML IV SCH (23:30)
[2018-06-30 00:21] LABS: Alanine Aminotransferase 277 U/L (16-61); Albumin 2.8 G/DL (3.4-5.0); Alkaline Phosphatase 195 U/L (45-117); Aspartate Amino Transferase 229 U/L (0-37); Bilirubin,Indirect 0.2 MG/DL (0.0-1.0); Bilirubin,Total < 0.39 MG/DL (0.2-1.0); Total Protein 6.7 G/DL (6.4-8.3)
[2018-06-30 01:11] LABS: Hepatitis A Ab IgM Result Negative (Negative); Hepatitis B Core IgM Quant 0.16 Index; Hepatitis B Core IgM Result Negative (Negative); Hepatitis B Surface Ag Quant < 0.10 Index; Hepatitis B Surface Ag Result Negative (Negative); Hepatitis C Virus Ab Quant > 11.00 Index; Hepatitis C Virus Ab Result Positive (Negative)
[2018-06-30 05:30] LABS: Basophils # 0.1 10*3/uL (0.0-0.2); Basophils % 0.3 % (0.0-0.8); Eosinophils % 0.1 % (0.00-10.9); Hematocrit 25.7 VOL% (42.0-52.0); Hemoglobin 8.4 GM/DL (14.0-18.0); Immature Granulocytes % 0.4 %; Immature Granulocytes Absolute 0.07 #; Lymphocytes # 5.1 10*3/uL (1.4-4.0); Lymphocytes % 32.5 % (21.2-54.2); Mean Corpuscular HGB Conc 32.7 GM/DL (32-36); Mean Corpuscular Hemoglobin 31 PG (27-34); Mean Corpuscular Volume 93.8 FL (87-102); Mean Platelet Volume 11.2 FL (9.6-12.0); Monocytes # 1.2 10*3/uL (0.11-0.8); Monocytes % 7.4 % (1.7-12.7); Neutrophils # 9.3 10*3/uL (1.4-7.4); Neutrophils % 59.3 % (38.7-73.9); Platelet Count 393 T/CUMM (130-400); Red Blood Count 2.74 MC/CUMM (3.8-5.5); Red Cell Distribution Width 16.1 % (9.3-17.3); White Blood Count 15.6 T/CUMM (4-12)
[2018-06-30 05:37] LABS: Calcium 7.9 MG/DL (8.5-10.1); Potassium 4.5 MMOL/L (3.5-5.1)
[2018-06-30 07:53] VITALS: BP 127/89
[2018-06-30] MEDS ORDERED: PANTOPRAZOLE 40 MG TABLET PO SCH (09:00)
== END 2018-06-30 07:56 | disposition left against medical advice (07) | DRG 378 ==
LOC: EDBD → EDUNIT# → N.ED 18:58 → N.EDINP 23:00 → N.5E 06-30 00:05
PROVIDERS: ADMIT Hospitalist; ATTEND Hospitalist

== ENCOUNTER 2022-04-18 15:50 | Inpatient (IN) ==
[~2022-04-18 15:50] MED LIST: SODIUM BICARBONATE 50 MEQ/50 ML VIAL IV ONE
[2022-04-18] MEDS ORDERED: cefTRIAXone 1,000 MG in SODIUM CHLORIDE 0.9% 100 ML IV STA (17:16)
[2022-04-18 17:52] LABS: Hemoglobin 10.1 GM/DL (14.0-18.0); Immature Granulocytes % 0.5 %; Immature Granulocytes Absolute 0.07 #; Lymphocytes # 0.4 10*3/uL (1.4-4.0); Mean Corpuscular HGB Conc 30.6 GM/DL (32-36); Mean Corpuscular Volume 82.1 FL (87-102); Mean Platelet Volume 10.7 FL (9.6-12.0); Monocytes # 0.5 10*3/uL (0.11-0.8); Monocytes % 3.7 % (1.7-12.7); NRBC # 0.72 10*3/uL; Neutrophils % 92.8 % (38.7-73.9); Platelet Count 803 T/CUMM (130-400); Red Blood Count 4.02 MC/CUMM (3.8-5.5); Red Cell Distribution Width 18.6 % (9.3-17.3); White Blood Count 13.8 T/CUMM (4-12)
[2022-04-18 18:03] LABS: INR 1.2; PT Patient Result 13.5 SECS (10.1-12.1); Partial Thromboplastin Time 27.3 SECS (23.7-32.9)
[2022-04-18 18:12] LABS: Alanine Aminotransferase 244 U/L (16-61); Albumin 2.5 G/DL (3.4-5.0); Alkaline Phosphatase 131 U/L (45-117); Aspartate Amino Transferase 286 U/L (0-37); Blood Urea Nitrogen 44 MG/DL (7-18); Calcium 8.7 MG/DL (8.5-10.1); Carbon Dioxide 21 MMOL/L (21-32); Chloride 99 MMOL/L (98-107); Glucose 220 MG/DL (74-106); Osmolality,Calculated 281.5 MOS/KG (273-304); Potassium 4.8 MMOL/L (3.5-5.1); Sodium 132 MMOL/L (136-145); Total Protein 6.5 G/DL (6.4-8.2)
[2022-04-18 18:20] LABS: Ferritin 158.6 ng/mL (26-388)
[2022-04-18] MEDS ORDERED: AZITHROMYCIN INJ 500 MG in SODIUM CHLORIDE 0.9% 250 ML IV STA (18:47)
[2022-04-18] MEDS ORDERED: SODIUM CHLORIDE 0.9% 1,000 ML IV STA (19:05)
[2022-04-18] MEDS ORDERED: NICOTINE 21 MG/24 HR PATCH TRANSDERM PRN (20:56)
[2022-04-18] MEDS ORDERED: guaiFENesin/DM ER 600-30 MG TABLET PO PRN (20:56)
[2022-04-18] MEDS ORDERED: ZALEPLON 5 MG CAPSULE PO PRN (20:56)
[2022-04-18] MEDS ORDERED: diphenhydrAMINE CAP 25 MG CAPSULE PO PRN (20:56)
[2022-04-18] MEDS ORDERED: ONDANSETRON 4 MG/2 ML VIAL IV PRN (20:56)
[2022-04-18] MEDS ORDERED: ACETAMINOPHEN 325 MG TABLET PO PRN (20:56)
[2022-04-18] MEDS ORDERED: hydrALAZINE 20 MG/1 ML VIAL IV PRN (20:56)
[2022-04-18] MEDS ORDERED: ETOMIDATE 20 MG/10 ML VIAL IV STA (20:59)
[2022-04-18] MEDS ORDERED: ENOXAPARIN 40 MG/0.4 ML SYRINGE SUBCUT SCH (21:00)
[2022-04-18] MEDS ORDERED: ROCURONIUM 100 MG/10 ML VIAL IV STA (21:00)
[2022-04-18] MEDS ORDERED: ENOXAPARIN 80 MG/0.8 ML SYRINGE SUBCUT STA (21:26)
[2022-04-18 21:32] LABS: Arterial Base Excess iSTAT -19 MMOL/L (-2.5-2.5); Arterial Bicarbonate iSTAT 13.2 MMOL/L (20-26); Arterial O2 Saturation iSTAT 100 % (95-100); Arterial PCO2 iSTAT 59 MM HG (35-48); Arterial PO2 iSTAT 413 MM HG (80-95); Arterial Total CO2 iSTAT 15 MMO/L (23-27); Arterial pH iSTAT 6.956 (7.35-7.45)
[2022-04-18] MEDS ORDERED: MIDAZOLAM 10 MG/2 ML VIAL IV STA (22:16)
[2022-04-18] MEDS ORDERED: SODIUM BICARBONATE 50 MEQ/50 ML VIAL IV STA (22:27)
[2022-04-18 22:28] LABS: Arterial Base Excess iSTAT -18 MMOL/L (-2.5-2.5); Arterial Bicarbonate iSTAT 15.5 MMOL/L (20-26); Arterial O2 Saturation iSTAT 100 % (95-100); Arterial PCO2 iSTAT 73 MM HG (35-48); Arterial PO2 iSTAT 284 MM HG (80-95); Arterial Total CO2 iSTAT 18 MMO/L (23-27); Arterial pH iSTAT 6.933 (7.35-7.45)
[2022-04-18] MEDS ORDERED: SODIUM BICARBONATE 50 MEQ/50 ML SYRINGE IV ONE (22:28)
[2022-04-18] MEDS ORDERED: SODIUM CHLORIDE 0.9% 500 ML IV ONE (23:22)
[2022-04-18] MEDS ORDERED: SODIUM CHLORIDE 0.9% 1,000 ML IV SCH (23:30)
[2022-04-18] MEDS ORDERED: VANCOMYCIN INJ 1,000 MG in SODIUM CHLORIDE 0.9% 250 ML IV SCH (23:30)
[2022-04-18 23:36] LABS: Albumin 2.1 G/DL (3.4-5.0); Bilirubin,Total 1.3 MG/DL (0.20-1.00); Calcium 8.3 MG/DL (8.5-10.1); Osmolality,Calculated 285.1 MOS/KG (273-304); Potassium 4.7 MMOL/L (3.5-5.1); Total Protein 6.4 G/DL (6.4-8.2)
[2022-04-18 23:40] LABS: Basophils % 0.1 % (0.0-0.8); Eosinophils % 0.1 % (0.00-10.9); Hemoglobin 11.3 GM/DL (14.0-18.0); Immature Granulocytes % 2.1 %; Immature Granulocytes Absolute 0.35 #; Lymphocytes # 1.1 10*3/uL (1.4-4.0); Lymphocytes % 6.6 % (21.2-54.2); Mean Corpuscular HGB Conc 29.2 GM/DL (32-36); Mean Corpuscular Volume 87.4 FL (87-102); Mean Platelet Volume 10.8 FL (9.6-12.0); Monocytes # 0.7 10*3/uL (0.11-0.8); Monocytes % 4.1 % (1.7-12.7); NRBC # 0.96 10*3/uL; Platelet Count 663 T/CUMM (130-400); Red Blood Count 4.43 MC/CUMM (3.8-5.5); Red Cell Distribution Width 19.3 % (9.3-17.3)
[2022-04-18 23:44] LABS: Hematocrit 38.7 VOL% (42.0-52.0)
[2022-04-18] MEDS ORDERED: VANCOMYCIN INJ 1,000 MG in SODIUM CHLORIDE 0.9% 250 ML IV PRN (23:45)
[2022-04-18] MEDS ORDERED: methylPREDNISolone SOD SUC 40 MG/1 ML VIAL IV SCH (23:45)
[2022-04-19] MEDS ORDERED: SODIUM BICARBONATE 50 MEQ/50 ML VIAL IV ONE (00:10)
[2022-04-19] MEDS ORDERED: methylPREDNISolone SOD SUC 125 MG/2 ML VIAL IV ONE ×2 (00:15→07:30)
[2022-04-19 00:20] LABS: High Sensitive Troponin I* 1096.7 ng/L (0-78)
[2022-04-19] MEDS: PIPERACILLIN/TAZOBACTAM 3,375 MG in SODIUM CHLORIDE 0.9% 100 ML IV SCH ×3 (00:20→16:04)
[2022-04-19] MEDS: FAMOTIDINE 20 MG/2 ML VIAL IV SCH ×5 (00:24→20:51)
[2022-04-19] MEDS ORDERED: SODIUM CHLORIDE 0.9% 500 ML IV ONE (00:30)
[2022-04-19] MEDS ORDERED: VANCOMYCIN INJ 1,750 MG in SODIUM CHLORIDE 0.9% 500 ML IV ONE (00:30)
[2022-04-19 00:53] LABS: ABG Base Excess -3.2 MMOL/L (-2.5-2.5); ABG HCO3 21.8 MMOL/L (20-26); ABG Oxygen Saturation 99.7 % (95-100); ABG PCO2 45.5 MM HG (35-48); ABG PH 7.313 (7.35-7.45); ABG TCO2 21.2 MMOL/L (23-27)
[2022-04-19 01:24] LABS: Barbiturates Screen,Urine Negative (Negative); Benzodiazepines Screen,Urine Positive (Negative); Cannabinoid Screen,Urine Positive (Negative); Opiate Screen,Urine Positive (Negative); Phencyclidine Screen,Urine Negative (Negative)
[2022-04-19] MEDS: SODIUM BICARB INJ 150 MEQ in STERILE WATER INJ 1,000 ML IV SCH ×2 (01:31→13:48)
[2022-04-19] MEDS: MELATONIN 3 MG TABLET PO SCH ×2 (02:27→20:53)
[2022-04-19] MEDS: CHOLECALCIFEROL 5,000 UNIT TABLET PO SCH ×3 (02:30→20:53)
[2022-04-19] MEDS: ASCORBIC ACID 500 MG TABLET PO SCH ×3 (02:30→20:53)
[2022-04-19] MEDS: HEPARIN DRIP 25,000 UNITS/500 ML PREMIX IV SCH ×2 (02:55→23:02)
[2022-04-19 03:43] LABS: Hepatitis B Core IgM Quant 1.12 Index; Hepatitis B Surface Ag Result Non-Reactive (NonReactive); Hepatitis C Virus Ab Quant 6.77 Index
[2022-04-19 03:45] LABS: Basophils % 0.1 % (0.0-0.8); Hemoglobin 10.8 GM/DL (14.0-18.0); Immature Granulocytes % 1.3 %; Immature Granulocytes Absolute 0.22 #; Lymphocytes # 0.3 10*3/uL (1.4-4.0); Mean Corpuscular HGB Conc 29.3 GM/DL (32-36); Mean Platelet Volume 10.5 FL (9.6-12.0); Monocytes # 0.9 10*3/uL (0.11-0.8); Monocytes % 5.7 % (1.7-12.7); NRBC # 0.95 10*3/uL; Neutrophils % 90.9 % (38.7-73.9); Platelet Count 713 T/CUMM (130-400); Red Blood Count 4.33 MC/CUMM (3.8-5.5); Red Cell Distribution Width 19.2 % (9.3-17.3); White Blood Count 16.4 T/CUMM (4-12)
[2022-04-19 03:47] LABS: Hematocrit 36.8 VOL% (42.0-52.0)
[2022-04-19 03:59] LABS: ABG Base Excess -9.9 MMOL/L (-2.5-2.5); ABG HCO3 16.6 MMOL/L (20-26); ABG PCO2 44.6 MM HG (35-48); ABG TCO2 16.5 MMOL/L (23-27)
[2022-04-19 04:04] LABS: Burr Cells Slight; Lymphocytes 3 % (20-55); Nucleated Red Blood Cells 2 /100 WBC (0-5); Ovalocytes Slight; Platelet Estimate Increased; Total Cells Counted 100
[2022-04-19 04:07] LABS: Calcium 7.1 MG/DL (8.5-10.1); Potassium 5.8 MMOL/L (3.5-5.1); Risk Ratio 6.44
[2022-04-19] MEDS: MIDAZOLAM DRIP 100 MG/100 ML PREMIX IV PRN (06:27)
[2022-04-19] MEDS: ALBUTEROL/IPRATROPIUM 3 ML NEB RESP TX SCH ×4 (06:55→19:33)
[2022-04-19] MEDS ORDERED: NOREPINEPHRINE DRIP 8 MG/250 ML PREMIX IV PRN (07:10)
[2022-04-19] MEDS ORDERED: LACTATED RINGERS 1,000 ML IV ONE (07:10)
[2022-04-19 07:16] LABS: Arterial Bicarbonate iSTAT 17.8 MMOL/L (20-26); Arterial pH iSTAT 7.286 (7.35-7.45)
[2022-04-19] MEDS ORDERED: NOREPINEPHRINE 4 MG/4 ML VIAL IV ONE (07:53)
[2022-04-19] MEDS: NOREPINEPHRINE 8 MG in SODIUM CHLORIDE 0.9% 242 ML IV PRN (07:59)
[2022-04-19] MEDS ORDERED: CETIRIZINE 10 MG TABLET PO SCH (09:00)
[2022-04-19] MEDS ORDERED: PANTOPRAZOLE 40 MG TABLET PO SCH (09:00)
[2022-04-19] MEDS ORDERED: ZINC GLUCONATE 50 MG TABLET PO SCH (09:00)
[2022-04-19] MEDS: methylPREDNISolone SOD SUC 40 MG/1 ML VIAL IV SCH ×3 (09:19→16:03)
[2022-04-19] MEDS ORDERED: ASPIRIN 300 MG SUPP RECTAL SCH (11:27)
[2022-04-19] MEDS ORDERED: ASPIRIN 325 MG TABLET PO SCH (12:00)
[2022-04-19 13:41] LABS: Basophils % 0.1 % (0.0-0.8); Hematocrit 31.5 VOL% (42.0-52.0); Hemoglobin 9.7 GM/DL (14.0-18.0); Immature Granulocytes % 1.2 %; Immature Granulocytes Absolute 0.34 #; Lymphocytes # 0.5 10*3/uL (1.4-4.0); Lymphocytes % 1.6 % (21.2-54.2); Mean Corpuscular HGB Conc 30.8 GM/DL (32-36); Mean Corpuscular Volume 84.5 FL (87-102); Mean Platelet Volume 10.6 FL (9.6-12.0); Monocytes # 1.4 10*3/uL (0.11-0.8); Neutrophils % 92.1 % (38.7-73.9); Platelet Count 623 T/CUMM (130-400); Red Blood Count 3.73 MC/CUMM (3.8-5.5); Red Cell Distribution Width 19.2 % (9.3-17.3); White Blood Count 27.8 T/CUMM (4-12)
[2022-04-19] MEDS: PANTOPRAZOLE 40 MG VIAL IV SCH ×2 (13:44→20:49)
[2022-04-19 14:04] LABS: Lymphocytes 3 % (20-55); Nucleated Red Blood Cells 10 /100 WBC (0-5); Platelet Estimate Increased; Total Cells Counted 100
[2022-04-19 14:05] LABS: Anisocytosis 1+; Hypochromia 1+; Macrocytosis 1+; Microcytosis 1+; Polychromasia Slight; Schistocytes Few
[2022-04-19 14:06] LABS: Calcium 6.6 MG/DL (8.5-10.1); Osmolality,Calculated 289.8 MOS/KG (273-304); Potassium 5.7 MMOL/L (3.5-5.1)
[2022-04-19 14:10] LABS: Ovalocytes Few
[2022-04-19 14:11] LABS: Burr Cells Few
[2022-04-19 14:12] LABS: Smudge Cells Moderate
[2022-04-19] MEDS ORDERED: fentaNYL 100 MCG/2 ML VIAL IV ONE (20:21)
[2022-04-19] MEDS ORDERED: fentaNYL INJ 1,250 MCG in SODIUM CHLORIDE 0.9% 225 ML IV PRN (22:16)
[2022-04-20] MEDS ORDERED: DEXTROSE 50% 25 GM/50 ML SYRINGE IV ONE ×2 (00:07→05:13)
[2022-04-20] MEDS: MIDAZOLAM DRIP 100 MG/100 ML PREMIX IV PRN (00:11)
[2022-04-20] MEDS: NOREPINEPHRINE 8 MG in SODIUM CHLORIDE 0.9% 242 ML IV PRN ×2 (00:12→05:54)
[2022-04-20] MEDS: DEXTROSE 10% 250 ML BAG IV PRN ×2 (00:15→04:05)
[2022-04-20] MEDS: ALBUTEROL/IPRATROPIUM 3 ML NEB RESP TX SCH (00:21)
[2022-04-20] MEDS: methylPREDNISolone SOD SUC 40 MG/1 ML VIAL IV SCH (00:30)
[2022-04-20] MEDS: PIPERACILLIN/TAZOBACTAM 3,375 MG in SODIUM CHLORIDE 0.9% 100 ML IV SCH (00:31)
[2022-04-20] MEDS: SODIUM BICARB INJ 150 MEQ in STERILE WATER INJ 1,000 ML IV SCH (00:56)
[2022-04-20] MEDS: HEPARIN DRIP 25,000 UNITS/500 ML PREMIX IV SCH (00:59)
[2022-04-20 03:26] LABS: ABG Base Excess -15.8 MMOL/L (-2.5-2.5); ABG HCO3 12.4 MMOL/L (20-26); ABG Oxygen Saturation 99.2 % (95-100); ABG PCO2 23.1 MM HG (35-48); ABG PH 7.253 (7.35-7.45); ABG TCO2 9.5 MMOL/L (23-27)
[2022-04-20 03:51] LABS: Basophils % 0.1 % (0.0-0.8); Hematocrit 32.3 VOL% (42.0-52.0); Hemoglobin 9.5 GM/DL (14.0-18.0); Immature Granulocytes % 2.1 %; Immature Granulocytes Absolute 0.47 #; Lymphocytes # 0.7 10*3/uL (1.4-4.0); Lymphocytes % 2.9 % (21.2-54.2); Mean Corpuscular HGB Conc 29.4 GM/DL (32-36); Mean Corpuscular Volume 85.9 FL (87-102); Monocytes # 1.4 10*3/uL (0.11-0.8); Monocytes % 6.2 % (1.7-12.7); NRBC # 2.99 10*3/uL; Neutrophils % 88.7 % (38.7-73.9); Osmolality,Calculated 288.2 MOS/KG (273-304); Platelet Count 606 T/CUMM (130-400); Red Blood Count 3.76 MC/CUMM (3.8-5.5); Red Cell Distribution Width 19.4 % (9.3-17.3); White Blood Count 22.5 T/CUMM (4-12)
[2022-04-20 03:53] LABS: Calcium 5.6 MG/DL (8.5-10.1); Potassium 6.4 MMOL/L (3.5-5.1)
[2022-04-20 03:58] LABS: Lymphocytes 1 % (20-55); Nucleated Red Blood Cells 22 /100 WBC (0-5); Total Cells Counted 100
[2022-04-20] MEDS ORDERED: SODIUM ZIRCONIUM CYCLOSILICATE 10 GM PACK PO SCH (03:58)
[2022-04-20 03:59] LABS: Anisocytosis 1+; Basophilic Stippling 2+; Ovalocytes Few; Poikilocytosis 1+
[2022-04-20] MEDS ORDERED: SODIUM BICARBONATE 50 MEQ/50 ML VIAL IV ONE (03:59)
[2022-04-20] MEDS ORDERED: CALCIUM GLUCONATE RIDER 1,000 MG/50 ML PREMIX IV ONE (03:59)
[2022-04-20] MEDS ORDERED: SODIUM POLYSTYRENE SULFATE 15 GM/60 ML BOTTLE PO ONE (03:59)
[2022-04-20 04:00] LABS: Platelet Estimate Increased; Sickle Cells Slight
[2022-04-20] MEDS ORDERED: DEXTROSE 10% 1,000 ML IV SCH (04:00)
[2022-04-20] MEDS ORDERED: EPINEPHrine 1 MG/10 ML SYRINGE IV ONE ×2 (05:07→07:08)
[2022-04-20] MEDS ORDERED: SODIUM BICARBONATE 50 MEQ/50 ML SYRINGE IV ONE ×2 (05:08→07:11)
[2022-04-20] MEDS ORDERED: CALCIUM CHLORIDE 1,000 MG/10 ML SYRINGE IV ONE ×2 (05:13→07:13)
[2022-04-20] MEDS ORDERED: EPINEPHrine 1 MG/ML VIAL ONE (05:24)
[2022-04-20] MEDS ORDERED: NOREPINEPHRINE 16 MG in SODIUM CHLORIDE 0.9% 234 ML IV PRN (06:00)
[2022-04-20 06:11] LABS: ABG Base Excess -17.7 MMOL/L (-2.5-2.5); ABG HCO3 11.1 MMOL/L (20-26); ABG Oxygen Saturation 98.9 % (95-100); ABG PCO2 30.1 MM HG (35-48); ABG TCO2 9.8 MMOL/L (23-27); Glucose Heart Surgery 214 MG/DL (74-106); Hematocrit Heart Surgery 28.2 PERCENT (42-52); Hemoglobin Heart Surgery 9.1 G/DL (14.0-18.0)
[2022-04-20 06:12] LABS: ABG PH 7.141 (7.35-7.45); Potassium Heart/CVR 6.3 MMOL/L (3.5-5.1)
[2022-04-20] MEDS ORDERED: NOREPINEPHRINE 32 MG in SODIUM CHLORIDE 0.9% 468 ML IV PRN (06:30)
[2022-04-20] MEDS ORDERED: INSULIN REGULAR 10 UNIT, CALCIUM GLUCONATE 1,000 MG in DEXTROSE 10% 250 ML IV ONE (06:35)
[2022-04-20] MEDS ORDERED: AMIODARONE 150 MG/3 ML VIAL IV ONE (07:16)
[2022-04-20 08:44] VITALS: BP 52/35
[2022-04-20 15:11] LABS: Patient's Ethnicity SEE COMMENTS; SARS-CoV-2 Nucleocapsid Ab Negative (Negative)
[2022-04-22 15:01] LABS: Specimen Source NASAL
== END 2022-04-20 07:23 | disposition expired | DRG 871 ==
LOC: N.ED 15:50 → N.ICU 20:56
PROVIDERS: ADMIT Internal Medicine; ATTEND Internal Medicine